=== PATIENT | female | born 1955 | race Caucasian/White ===

== ENCOUNTER 2021-11-06 13:52 | Emergency (ER) | payer BC, OTHER ==
--- NOTE | 2021-11-06 15:53 | ER ---
Nurse's Notes [facility] Name: Yvonne Szymanski Age: 66 yrs Sex: Female : 1955 Arrival Date: 11/06/2021 Time: 13:57 Bed 18 Private MD: Diagnosis: Prolapsed Rectum - Resolved Presentation: 11/06 14:02 Chief complaint: Patient states: "Dr. Kelley said I need emergent surgery for a ab2 prolapsed rectum. He said he called and let everyone here know.". Coronavirus screen: Vaccine status: Patient reports being unvaccinated. Client denies travel out of the [place] in the last 14 days. At this time, the client does not indicate any symptoms associated with coronavirus-19. Ebola Screen: Patient negative for fever greater than or equal to 101.5 degrees Fahrenheit, and additional compatible Ebola Virus Disease symptoms Patient denies exposure to infectious person. Patient denies travel to an Ebola-affected area in the 21 days before illness onset. No symptoms or risks identified at this time. Initial Sepsis Screen: Does the patient meet any 2 criteria? No. Patient's initial sepsis screen is negative. Does the patient have a suspected source of infection? No. Patient's initial sepsis screen is negative. Risk Assessment: Do you want to hurt yourself or someone else? Patient reports no desire to harm self or others. Onset of symptoms is unknown. 14:02 Method Of Arrival: Ambulatory ab2 14:02 Acuity: STEPHAN 3 ab2 Triage Assessment: 14:07 General: Appears in no apparent distress. uncomfortable, Behavior is calm, cooperative, ab2 appropriate for age. Pain: Complains of pain in gluteal cleft. GI: Reports Prolapsed rectum. Historical: - Allergies: 14:06 No Known Allergies; ab2 - PMHx: 14:06 Prolapsed Rectum; ab2 15:32 acid reflux; Hypothyroidism; eo2 - PSHx: 14:06 Hernia Repair; ab2 15:32 R. ACL Repair; R. Ear Canal CA; Cataract and Lasik SX; eo2 - Immunization history:: Adult Immunizations up to date. - Social history:: Smoking status: Patient denies any tobacco usage or history of. Screenin:28 Abuse screen: Denies threats or abuse. Denies injuries from another. Nutritional eo2 screening: No deficits noted. Tuberculosis screening: No symptoms or risk factors identified. Fall Risk None identified. Assessment: 15:28 General: Appears in no apparent distress. comfortable, Behavior is calm, cooperative. eo2 Pain: Complains of pain in buttocks and gluteal cleft. Neuro: Level of Consciousness is awake, alert, obeys commands, Oriented to person, place, time, situation, Denies dizziness, headache. Cardiovascular: Denies chest pain, shortness of breath, Capillary refill < 3 seconds. Respiratory: Airway is patent Trachea midline Respiratory effort is even, unlabored, Respiratory pattern is regular, symmetrical, Breath sounds are clear bilaterally. Denies cough, shortness of breath. GI: Abdomen is non-distended, Bowel sounds present X 4 quads. Patient currently denies abdominal pain. : Reports rectal prolapse and hemorrhoid. Vital Signs: 14:02 BP 112 / 89; Pulse 80; Resp 18; Temp 98.2(TE); Pulse Ox 98% on R/A; Weight 104.33 kg; ab2 Height 5 ft. 9 in. (175.26 cm); Pain 7/10; 15:28 BP 132 / 80; Pulse 65; Resp 17; Pulse Ox 99% ; Pain 5/10; eo2 14:02 Body Mass Index 33.96 (104.33 kg, 175.26 cm) ab2 ED Course: 13:57 Patient arrived in ED. ds1 14:05 Triage completed. ab2 14:07 Arm band placed on left wrist. ab2 14:52 Ladi Iqbal, RN is Primary Nurse. eo2 14:53 Mata Bowers PA is PHCP. [facility] 14:53 Mayelin Piper MD is Attending Physician. [facility] 15:28 Patient has correct armband on for positive identification. Pulse ox on. NIBP on. Door eo2 closed. Noise minimized. 15:28 No provider procedures requiring assistance completed. eo2 Administered Medications: No medications were administered Outcome: 15:52 Discharge ordered by . [facility] 15:58 Discharged to home ambulatory, with family. ic1 15:58 Condition: stable 15:58 Discharge instructions given to patient, Instructed on discharge instructions, follow up and referral plans. Demonstrated understanding of instructions, follow-up care. 16:02 Patient left the ED. ic1 Signatures: Mata Bowers PA PA jmm Sanford, Demi ds1 Ladi Iqbal, RN RN eo2 Sita Mclean RN RN ic1 Bari Lee
--- NOTE | 2021-11-06 15:53 | EDPHYS ---
Physician Documentation [facility] Name: Yvonne Szymanski Age: 66 yrs Sex: Female : 1955 Arrival Date: 11/06/2021 Time: 13:57 Bed 18 Private MD: ED Physician Mayelin Piper HPI: 11/06 15:26 This 66 yrs old Female presents to ER via Ambulatory with complaints of Prolapsed. jmm 15:26 The patient presents to the emergency department with pain in the rectal area. Onset: jmm The symptoms/episode began/occurred 3 week(s) ago. Modifying factors: The symptoms are alleviated by nothing. This is a 66-year-old female with a history of hypothyroidism and GERD the presents emerged department with complaints of rectal pain. Patient states she had a banding procedure performed 3 weeks ago and had rectal discomfort since. Patient was evaluated today by gastroenterology who reduced a prolapsed rectum. Patient states she does not have any current rectal pain but was advised of the need to go to the emergency department to be transferred to colorectal surgery.. Historical: - Allergies: 14:06 No Known Allergies; ab2 - PMHx: 14:06 Prolapsed Rectum; ab2 15:32 acid reflux; Hypothyroidism; eo2 - PSHx: 14:06 Hernia Repair; ab2 15:32 R. ACL Repair; R. Ear Canal CA; Cataract and Lasik SX; eo2 - Immunization history:: Adult Immunizations up to date. - Social history:: Smoking status: Patient denies any tobacco usage or history of. ROS: 15:26 Constitutional: Negative for fever, chills, and weight loss, Cardiovascular: Negative jmm for chest pain, palpitations, and edema, Respiratory: Negative for shortness of breath, cough, wheezing, and pleuritic chest pain. 15:26 Abdomen/GI: Positive for rectal pain. 15:26 All other systems are negative. Exam: 15:26 Constitutional: This is a well developed, well nourished patient who is awake, alert, jmm and in no acute distress. Head/Face: atraumatic. Eyes: EOMI, no conjunctival erythema appreciated ENT: Moist Mucus Membranes Neck: Trachea midline, Supple Chest/axilla: Normal chest wall appearance and motion. Cardiovascular: Regular rate and rhythm. No edema appreciated Respiratory: Normal respirations, no respiratory distress appreciated 15:26 Abdomen/GI: Inspection: obese Bowel sounds: normal, Palpation: abdomen is soft and non-tender, in all quadrants, soft, in all quadrants, Rectal exam: hemorrhoid(s), external, rectal prolapse is not appreciated. 15:26 Musculoskeletal/extremity: ROM: intact in all extremities. 15:26 Skin: Appearance: Color: normal in color. 15:26 Neuro: Motor: is normal. 15:26 Psych: Behavior/mood is pleasant, cooperative. Vital Signs: 14:02 BP 112 / 89; Pulse 80; Resp 18; Temp 98.2(TE); Pulse Ox 98% on R/A; Weight 104.33 kg; ab2 Height 5 ft. 9 in. (175.26 cm); Pain 7/10; 15:28 BP 132 / 80; Pulse 65; Resp 17; Pulse Ox 99% ; Pain 5/10; eo2 14:02 Body Mass Index 33.96 (104.33 kg, 175.26 cm) ab2 MDM: 15:26 Patient medically screened. [facility] 17:22 Data reviewed: vital signs, nurses notes. Counseling: I had a detailed discussion with uma the patient and/or guardian regarding: the historical points, exam findings, and any diagnostic results supporting the discharge/admit diagnosis, the need for outpatient follow up, to return to the emergency department if symptoms worsen or persist or if there are any questions or concerns that arise at home. ED course: I discussed I discussed the patient with Dr. Kelley whom wanted to have the patient transferred to the [facility] due to the prolapse. I discussed this with the patient whom had a preference to follow-up. I contacted Dr. Jeffery Hernandez whom will follow up with the patient. Patient was given strict return precautions. patient understood and agrees with the plan of care. . Administered Medications: No medications were administered Disposition Summary: 11/06/21 15:52 Discharge Ordered Location: Home [facility] Condition: Stable yair Diagnosis - Prolapsed Rectum - Resolved yair Followup: uma - With: Private Physician - When: 2 - 3 days - Reason: Recheck today's complaints, Continuance of care, Re-evaluation by your physician Discharge Instructions: - Discharge Summary Sheet uma - Rectal Prolapse, Adult yair Forms: - Medication Reconciliation Form yair - Thank You Letter jmm - Antibiotic Education jmm - Prescription Opioid Use jm Signatures: Mata Bowers PA PA jmm Owoade, Eunice, RN RN eo2 Bari Lee
[2021-11-06 16:50] VITALS: TEMP 98.2
[2021-11-06 16:51] VITALS: BP 132/80; O2SAT 99
== END 2021-11-06 16:02 | disposition home or self-care (01) ==
LOC: ER 13:52
DX: K62.89 Other specified diseases of anus and rectum (principal)
CPT/HCPCS: 99283

== ENCOUNTER 2022-08-04 23:56 | Emergency (ER) | payer OTHER ==
--- OUTSIDE RECORDS SUMMARY | 2022-08-04 23:58 | XMS REPORT | Clinical Summary ---
:1955 Author Organization [facility] MD [facility] Address [address] [place] [address] Care Team Providers Name Role Phone Hemal Berg MD Primary Care Provider Kadi Esposito MD Unavailable Liborio Pereira Unavailable Lorenzo Acosta MD Unavailable Ignacio Salvador MA, James H Unavailable Tom Melendez MD Unavailable Hemal Berg MD Unavailable Dominick Akbar Unavailable Zhang Chavez MD Unavailable Allergies Active Allergy Reactions Severity Noted Date Comments Adhesive Rash Low 10/09/2016 Other Dermatitis High 12/24/2018 Allergic to all metals Medications Medication Sig Dispensed Refills Start Date End Date Status levothyroxine Take 1 tablet by 0 Active (SYNTHROID, mouth daily. LEVOTHROID) 75 mcg tablet omeprazole Take 10 mg by mouth 0 Active (PriLOSEC) 10 MG as needed. Reported capsule on 10/09/2016 ranitidine (ZANTAC) Take 150 mg by mouth 0 Active 150 mg tablet as needed. Reported on 10/09/2016 NAPROXEN SODIUM Take 2 tablets by 0 Active (ALEVE ORAL) mouth as needed. topiramate (QUDEXY Take 150 mg by mouth 0 Active XR) 100 mg CSpX every evening. CYANOCOBALAMIN, Inject 1 application 0 Active VITAMIN B-12, (B-12 as directed every 30 KIT INJECTION) (thirty) days. SALIVAMAX 351 mg RINSE 8-10 TIMES 11 01/30/2018 Active pwpk DAILY. RECONSTITUTE EACH PACKET WITH WATER. TURMERIC, BULK, MISC 1 capsule by 0 Active miscellaneous route every evening. solifenacin Take by mouth. 0 Act jenise (VESICARE) 5 MG tablet magnesium oxide 500 Take 500 mg by mouth 0 Active mg tablet every evening. UNABLE TO FIND 2 tablets twice 0 Active daily. Med Name: Rex's Leg Cramps Homeopathic Tabs tolterodine (DETROL Take by mouth every 0 Active LA) 4 mg 24 hr evening. capsule magnesium chloride Take 2 tablets by 0 Active (SLOW-MAG mouth daily. 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 Her radiation therapy span adma from 04/11/2015 to 05/20/2015, recei ving 60 Gy over 30 fractions. She underwent lateral temporal bone rese ction with facial nerve decompression, superficial parotidectomy, upper neck dissection, and temporalis rotational flap reconstruction. Her radiation therapy span adam from 04/11/2015 to 05/20/2015, recei ving 60 Gy over 30 fractions. 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 History of laparoscopic adjustable gastric banding Neuralgia 06/17/2015 Surgical History Surgery Date Site/Laterality Comments RESECTION TEMPORAL BONE 02/28/2015 Right TONSILLECTOMY 09/02/1971 - 09/01/1972 HYSTERECTOMY 09/02/1994 - with Bladder sli ng 09/01/1995 GASTRIC BYPASS 08/02/1999 - 09/01/1999 SHOULDER SURGERY 09/02/2008 - Right Rotator cuff re pair 09/01/2009 COLONOSCOPY 09/02/2015 - 09/01/2016 CHOLECYSTECTOMY 09/02/1992 - 09/01/1993 UPPER GASTROINTESTINAL 09/02/2002 - ENDOSCOPY 09/01/2003 VENTRAL HERNIA REPAIR 1994; 2002 with Mesh STOMACH SURGERY 09/02/1998 - Vertical Gastric 09/01/1999 Banding PANNICULECTOMY 09/02/2002 - 09/01/2003 NE RPR 1ST INGUN HRNA AGE 4 10/29/2016 Abdomen/Right Proc edure: REPAIR OF YRS/> REDUCIBLE REDUCIBLE INGUIN AL HERNIA- RIGHT; Surgeon: James luque MD; Location: [facility] IN OR; Service: SURG ON C - GENERAL Medical devices from this surgery are in the Medical [facility] section. Medical History Medical History Date Comments Hypothyroidism Migraine Personal history of meningitis 1975 Hearing loss 2014 Functional visual loss 1965 Polyp 1990 Gallstone 1996 Urinary tract infection 2011 Urinary incontinence 2004 Do to bladder falle n, repaired and fallen again Menopause 2002 do to hysterectomy Fracture broken wrist/broken toe Complication of internal prosthetic 2015 in w rist device Presence of other specified device 2004 repai r of henia Disorder of thyroid gland 2015 Malignant tumor of head and neck 2015 ear can cer Squamous cell carcinoma Of right ear can al Gastro-esophageal reflux disease 1994 without esophagitis Inguinal hernia Obesity Endometriosis Hypertension 02/06/2017 Family History Medical History Relation Name Comments Heart disease Brother 1 Liver disease Brother 2 Breast cancer Cousin 1 Dori Breast cancer Cousin 2 Eliane -Unknown cancer Cousin 3 beatriz Heart disease Father Diabetes Mother Hypertension Mother -Melanoma Paternal Uncle Liver disease Sister Relation Name Status Comments Brother 1 Brother 2 Cousin 1 Dori Cousin 2 Eliane Alive Cousin 3 beatriz Alive Father Mother Paternal Uncle Sister Social History Tobacco Use Types Packs/Day Years Used Date Smoking Tobacco: Former Cigarettes 1.5 15 1965 - 1980 Smokeless Tobacco: Never Alcohol Use Standard Drinks/Week Comments No 0 (1 standard drink = 0.6 oz pure alcoho l) 3 drinks/month Sex Assigned at Date Recorded Not on file Obstetrics History Para Term AB IAB SAB Ectopic Multiple Living Live Births 4 4 Date Outcome GA Total Labor/2nd/3rd Weight Sex Delivery Anes PTL Della A 1 A5 Name Clin Labor Para Para Para Para Comments Menarche at age 8 Parity at age 18 Control Pills: 11 years Hormones: 2 years Last Filed Vital Signs Not on file Plan of Treatment Health Maintenance Due Date Last Done Comments COVID-19 Vaccination (#1) 02/18/1956 Medical Devices Implanted Type Area Small Battery Plate Assembler Device Shelf Model / Serial / Identifier Expiration Lot Date Mesh Marlex 2" X 12" - [id number] Implant Right: [employer] 04/29/2020 [id number] / Implanted: Qty: 1 on 10/29/2016 by James Fernandez MD [facility] Inguinal [id number] / [id number] Results Not on fileafter 08/04/2021 Insurance Payer Benefit Plan Subscriber ID Effective Phone Address Typ e / Group Dates MEDICARE MEDICARE PART [id number] 2019-Pres [phone] [facility] Medicare A AND B ent [address] [place] [address] [place] P[place] [id number] 2020-Prese [address] [place] [address] [place] [address] [phone] (Work) Yvonne Szymanski Marci Personal/Family Self 1955 [address] (Home) [place] [address] EliaswiliYvonne Marci Personal/Family Self 1955 [address] (Home) [place], [place] [phone] (Work) Advance Directives Code Status Date Activated Date Inactivated Comments Full Code 10/29/2016 9:36 AM 10/29/2016 3:34 PM Care Teams Consulting It Architect Relationship Specialty Start Date End Date Hemal Berg MD PCP - General 11/02/[address] [place] [id number] Kadi Esposito MD PCP - External Referring 01/06/[address] [place] [phone] Liborio Pereira AuD Public Relations Consultant 11/09/[address] [place], [place] [address] [place] [address] Lorenzo Acosta MD Physician 11/09/[address] [place] [address]. [address] [place] [address] Lexa Pierre Jr., MA Public Relations Consultant 11/09/[address] [place] [address] [place] [address] [place] [address] Tom Melendez MD Physician 11/09/[address] [place] [id number] Hemal Berg MD Physician 11/09/[address] [place] [address] Dominick Akbar PA Physician Breeder Service Technician 11/09/[address] [place] [address] Zhang Chavez MD Physician 11/09/[address] [place] [address]
--- OUTSIDE RECORDS SUMMARY | 2022-08-05 00:04 | XMS REPORT | Continuity of Care Document ---
:1955 Author Organization [facility] [place] t Address [address] [place] [address] Care Team Providers Name Role Phone FRANCISCO JAVIER REYES Primary Care Physician Unavailable LUPE PEÑALOZA Attending Clinician Unavailable Chloé Pena MA Attending Clinician Unavailable LUPE PEÑALOZA Attending Clinician Unavailable Doctor Unassigned, [place] Attending Clinician Unavailable Ambar Weathers MD Attending Clinician Eneida Barrios Attending Clinician ENEIDA GONZALEZ Attending Clinician Unavailable Provider, [facility] Attending Clinician Unavailable Rohan Wolf DO Attending Clinician Angie Romo Attending Clinician Lab, [facility] Attending Clinician Unavailable VESELKA, AMBAR EDWARD Attending Clinician Unavailable P[facility], Acute [facility] Attending Clinician Unavailable Payers Payer Name Policy Type Policy Number Effective Date Expiration Date [employer] PPO [id number] 2021 00:00:00 Problems Condition Condition Condition Status Onset Resolution Last Treating Co mments Source Name Details Category Date Date Treatment Clinician Date Vaginal Vaginal Disease Active Methodi vault vault 02-27 prolapse prolapse 00:00: Hospit a after after 00 l hysterecto hysterecto my my Headache Headache Disease Active Unive rs 02-08 ity of 00:00: [facility] Meningitis Meningitis Disease Active U nivers 02-06 ity of 00:00: MD [facility] Arthritis Arthritis Disease Active Met hodi 02-06 00:00: Hospita 00 l Hypertensi Hypertensi Disease Active M ethodi on on 02-06 00:00: Hospita 00 l Personal Personal Disease Active Unive rs history of history of 12-22 it [place] of [place] [facility] 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 [place], [place] Medical right right Branch 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 [place], 00 Medical right right Branch Inguinal Inguinal Disease Active 2015-09 [place] rs hernia hernia 1-14 ity of 00:00: 00 MD [facility] Abdominal Abdominal Disease Active 2015-09 Uni vers pain pain 1-14 ity of 00:00: 00 MD [facility] Mass of Mass of Disease Active 2015-09 Univers pancreas pancreas 1-12 ity of 00:00: MD [facility] Obesity Obesity Disease Active 2015-09 Methodi (BMI (BMI 09-13 st 30-39.9) 30-39.9) 00:00: Hospit a 00 l Occipital Occipital Disease Active 2015-09 Uni vers neuralgia neuralgia 1-10 ity of 00:00: 00 MD [facility] History of History of Disease Active 2015-09 U nivers bypass of bypass of 1-10 ity of stomach stomach 00:00: [place] 00 MD [facility] Conductive Conductive Disease Active 2015-09 M ethodi hearing hearing 1-09 st loss of loss of 00:00: Hospita right ear right ear 00 l Conductive Conductive Disease Active 2015-09 M ethodi hearing hearing 1-09 st loss of loss of 00:00: Hospita right ear right ear 00 l Cancer of Cancer of Disease Active Uni vers skin of skin of 9-27 ity of ear and ear and 00:00: [place] external external 00 Medica l auditory auditory Branch canal, canal, right right Squamous Squamous Disease Active Overview: Un jamie cell cell 4-01 Formattin ity of carcinoma carcinoma 00:00: [place] of this [place] of skin of of skin of 00 note ear ear might be Anderso different n from the Cancer original. Center She underwent lateral temporal bone resection with facial nerve decompres dorita, superfici al parotidec emily, upper neck dissectio n, and temporali s rotationa l flap reconstru ction. Her radiation therapy spanned from 5 to 5, receiving 60 Gy over 30 fractions .She underwent lateral temporal bone resection with facial nerve decompres dorita, superfici al parotidec emily, upper neck dissectio n, and temporali s rotationa l flap reconstru ction. Her radiation therapy spanned from 5 to 5, receiving 60 Gy over 30 fractions . Squamous Squamous Disease Active Overview: Me thodi cell cell 4-[address] carcinoma carcinoma 00:00: g of this H ospita of ear, of ear, 00 note l right right might be different from the original. Overview: She underwent lateral temporal bone resection with facial nerve decompres dorita, superfici al parotidec emily, upper neck dissectio n, and temporali s rotationa l flap reconstru ction. Her radiation therapy spanned from 5 to 5, receiving 60 Gy over 30 fractions . History of History of Disease Active 2014-09 U nivers laparoscop laparoscop 0-29 it y of ic ic 00:00: [place] adjustable adjustable 00 gastric gastric Anderso banding [facility] Gastroesop Gastroesop Disease Active 2014-09 M ethodi hageal hageal 0-29 st reflux reflux 00:00: Hospita disease disease 00 l without without esophagiti esophagiti s s Hypothyroi Hypothyroi Disease Active 2014-09 M ethodi dism dism 0- st 00:00: Hospita 00 l Neuralgia Neuralgia Disease Active 2014-09 Met hodi of of 0 st cranial cranial 00:00: Hospita nerve nerve 00 l Neuralgia Neuralgia Disease Active 2014-09 Uni vers 0-16 ity of 00:00: [place] 00 MD [facility] No known No known Disease [place] active active Health problems problems Allergies, Adverse Reactions, Alerts Allergy Allergy Status Severity Reaction(s) Onset Inactive Treating Comm ents Source Name Type Date Date Clinician Other Propensi Active Allergic Method i ty to [address] adverse 00:00: metals Hospita reaction 00 l s Adhesive Propensi Active Rash Univer s ty to 207 ity of adverse 00:00: [place] reaction 00 [facility] ADHESIVE Drug Active Low Rash Univers Class 2-07 ity of 00:00: [place] 00 [facility] Branch Adhesive Propensi Active Rash Method i ty to 07 st adverse 00:00: Hospita reaction 00 l s to drug Adhesive Propensi Active Rash Univer s ty to 2-07 ity of adverse 00:00: [place] reaction 00 [facility] Adhesive Propensi Active Rash Method i ty to 10-09 st adverse 00:00: Hospita reaction 00 l s to drug NO KNOWN Drug Active Univers ALLERGIE Class ity of [facility] Family History Family Member Diagnosis Comments Start Date Stop Date Source Natural brother [facility] [place] Natural brother Liver disease [facility] MD David Delacruz r [place] Cousin Breast cancer [facility] MD David Delacruz r [place] Cousin -Unknown cancer [facility] [place] [facility] Del[facility] r [place] Natural father Heart disease Univers ity [facility] MD [facility] [place] Natural mother Diabetes [facility] MD [facility] [place] Natural mother Hypertension [facility] [place] MD David Delacruz r [place] Paternal uncle -Melanoma [facility] MD [facility] [place] Natural sister Liver disease Univers ity [facility] MD [facility] Social History Social Habit Start Date Stop Date Quantity Comments Source History of tobacco Current smoker [facility] use History SDOH [facility] History SDOH [facility] Std Drinks Hospit al Exposure to 2022-06-12 2022-06-22 Not sure [facility] SARS-CoV-2 (event) 00:00:00 10:15:00 Tobacco use and 2021-11-07 2021-11-07 Smokeless [facility] exposure 00:00:00 00:00:00 tobacco non-user Alcohol intake 2019-02-27 2019-02-27 Current [facility] 00:00:00 00:00:00 non-drinker of Hospital alcohol (finding) History SDOH 2019-02-27 2019-02-27 1 [facility] Frequency 00:00:00 00:00:00 Hospita l Alcohol Comment 2016-10-09 2016-10-09 3 drinks/month Unive rsity of 00:00:00 00:00:00 [place] MD Dany field [facility] [place] Cigarettes smoked 2016-10-09 2016-10-09 [facility] ity of current (pack per 00:00:00 00:00:00 [place] Alyson Posey David ) - Reported Cancer Ce nter Cigarette 2016-10-09 2016-10-09 University of pack-years 00:00:00 00:00:00 [place] MD Dany field [facility] Sex Ass[birth year] At [birth year] [facility] 00:00:00 00:00:00 Hospital Smoking Status Start Date Stop Date Source Ex-smoker 2021-11-07 00:00:00 2021-11-07 00:00:00 [facility] Medications Ordered Filled Start Stop Current Ordering Indication Dosage Frequency Signature Comments Components Source Medication Medication Date Date Medication? Clinician (SIG) Name Name Na Yes [id number] Use as [place] Sulfate-K 4-04 directed Health Sulfate-Mg 00:00: given to Sulf 00 patient at (Suprep the office Bowel Prep Kit) 17.5-3.13-1 .6 GM/177ML solution Na Yes [id number] Use as [facility] Sulfate-K 4-04 directed Health Sulfate-Mg 00:00: given to Sulf 00 patient at (Suprep the office Bowel Prep Kit) 17.5-3.13-1 .6 GM/177ML solution Na Yes [id number] Use as [facility] Sulfate-K 4-04 directed Health Sulfate-Mg 00:00: given to Sulf 00 patient at (Suprep the office Bowel Prep Kit) 17.5-3.13-1 .6 GM/177ML solution Na Yes [id number] Use as [facility] Sulfate-K 4-04 directed Health Sulfate-Mg 00:00: given to Sulf 00 patient at (Suprep the office Bowel Prep Kit) 17.5-3.13-1 .6 GM/177ML solution Na Yes [id number] Use as [facility] Sulfate-K 4-04 directed Health Sulfate-Mg 00:00: given to Sulf 00 patient at (Suprep the office Bowel Prep Kit) 17.5-3.13-1 .6 GM/177ML solution Na Yes [id number] Use as [facility] Sulfate-K 4-04 directed Health Sulfate-Mg 00:00: given to Sulf 00 patient at (Suprep the office Bowel Prep Kit) 17.5-3.13-1 .6 GM/177ML solution aspirin-jose 0 Yes 1{tbl} Q6H Take 1 UT taminophen- 3-08 tablet by [facility] caffeine 10:17: mouth (Excedrin 38 every 6 Migraine) (six) 250-250-65 hours if MG tablet needed for headaches. Boswellia-G 0 Yes Take by UT lucosamine- 3-08 mouth. Health Vit D 10:17: (OSTEO 38 BI-FLEX ONE PER DAY PO) CRANBERRY 0 Yes Take by UT FRUIT PO 3-08 mouth. Health 10:17: 38 FAMOTIDINE 0 Yes Take by UT PO 3-08 mouth. Health 10:17: 38 aspirin-jose 2021-0 Yes 1{tbl} Q6H Take 1 UT taminophen- 3-08 tablet by [facility] caffeine 10:17: mouth (Excedrin 38 every 6 Migraine) (six) 250-250-65 hours if MG tablet needed for headaches. Boswellia-G 0 Yes Take by UT lucosamine- 3-08 mouth. Health Vit D 10:17: (OSTEO 38 BI-FLEX ONE PER DAY PO) CRANBERRY 0 Yes Take by UT FRUIT PO 3-08 mouth. Health 10:17: 38 FAMOTIDINE 2-0 Yes Take by UT PO 3-08 mouth. Health 10:17: 38 aspirin-jose 2-0 Yes 1{tbl} Q6H Take 1 UT taminophen- 3-08 tablet by [facility] caffeine 10:17: mouth (Excedrin 38 every 6 Migraine) (six) 250-250-65 hours if MG tablet needed for headaches. Boswellia-G 2021-0 Yes Take by UT lucosamine- 3-08 mouth. Health Vit D 10:17: (OSTEO 38 BI-FLEX ONE PER DAY PO) CRANBERRY 2021-0 Yes Take by UT FRUIT PO 3-08 mouth. Health 10:17: 38 FAMOTIDINE 2-0 Yes Take by UT PO 3-08 mouth. Health 10:17: 38 aspirin-jose 2-0 Yes 1{tbl} Q6H Take 1 UT taminophen- 3-08 tablet by [facility] caffeine 10:17: mouth (Excedrin 38 every 6 Migraine) (six) 250-250-65 hours if MG tablet needed for headaches. Boswellia-G 2021-0 Yes Take by UT lucosamine- 3-08 mouth. Health Vit D 10:17: (OSTEO 38 BI-FLEX ONE PER DAY PO) CRANBERRY 2021-0 Yes Take by UT FRUIT PO 3-08 mouth. Health 10:17: 38 FAMOTIDINE 2-0 Yes Take by UT PO 3-08 mouth. Health 10:17: 38 aspirin-jose 2-0 Yes 1{tbl} Q6H Take 1 UT taminophen- 3-08 tablet by [facility] caffeine 10:17: mouth (Excedrin 38 every 6 Migraine) (six) 250-250-65 hours if MG tablet needed for headaches. Boswellia-G 2-0 Yes Take by UT lucosamine- 3-08 mouth. Health Vit D 10:17: (OSTEO 38 BI-FLEX ONE PER DAY PO) CRANBERRY 2-0 Yes Take by UT FRUIT PO 3-08 mouth. Health 10:17: 38 FAMOTIDINE 2022-0 Yes Take by UT PO 3-08 mouth. Health 10:17: 38 aspirin-jose 2022-0 Yes 1{tbl} Q6H Take 1 UT taminophen- 3-08 tablet by [facility] caffeine 10:17: mouth (Excedrin 38 every 6 Migraine) (six) 250-250-65 hours if MG tablet needed for headaches. Boswellia-G 2021-0 Yes Take by UT lucosamine- 3-08 mouth. Health Vit D 10:17: (OSTEO 38 BI-FLEX ONE PER DAY PO) CRANBERRY 2-0 Yes Take by UT FRUIT PO 3-08 mouth. Health 10:17: 38 FAMOTIDINE 2-0 Yes Take by UT PO 3-08 mouth. Health 10:17: 38 aspirin-jose 2022-0 Yes 1{tbl} Q6H Take 1 UT taminophen- 3-08 tablet by [facility] caffeine 10:17: mouth (Excedrin 38 every 6 Migraine) (six) 250-250-65 hours if MG tablet needed for headaches. Boswellia-G 2021-0 Yes Take by UT lucosamine- 3-08 mouth. Health Vit D 10:17: (OSTEO 38 BI-FLEX ONE PER DAY PO) CRANBERRY 2-0 Yes Take by UT FRUIT PO 3-08 mouth. Health 10:17: 38 FAMOTIDINE 2-0 Yes Take by UT PO 3-08 mouth. Health 10:17: 38 aspirin-jose 2022-0 Yes 1{tbl} Q6H Take 1 UT taminophen- 3-08 tablet by [facility] caffeine 10:17: mouth (Excedrin 38 every 6 Migraine) (six) 250-250-65 hours if MG tablet needed for headaches. Boswellia-G 2021-0 Yes Take by UT lucosamine- 3-08 mouth. Health Vit D 10:17: (OSTEO 38 BI-FLEX ONE PER DAY PO) CRANBERRY 2-0 Yes Take by UT FRUIT PO 3-08 mouth. Health 10:17: 38 FAMOTIDINE 2022-0 Yes Take by UT PO 3-08 mouth. Health 10:17: 38 aspirin-jose 2022-0 Yes 1{tbl} Q6H Take 1 UT taminophen- 3-08 tablet by [facility] caffeine 10:17: mouth (Excedrin 38 every 6 Migraine) (six) 250-250-65 hours if MG tablet needed for headaches. Boswellia-G 2022-0 Yes Take by UT lucosamine- 3-08 mouth. Health Vit D 10:17: (OSTEO 38 BI-FLEX ONE PER DAY PO) CRANBERRY 2-0 Yes Take by UT FRUIT PO 3-08 mouth. Health 10:17: 38 FAMOTIDINE 2-0 Yes Take by UT PO 3-08 mouth. Health 10:17: 38 Magnesium 2022-0 Yes 500mg Take 500 UT Oxide 500 3-08 mg by Health MG tablet 10:16: mouth. 24 Magnesium 2022-0 Yes 500mg Take 500 UT Oxide 500 3-08 mg by Health MG tablet 10:16: mouth. 24 Magnesium 2022-0 Yes 500mg Take 500 UT Oxide 500 3-08 mg by Health MG tablet 10:16: mouth. 24 Magnesium 2022-0 Yes 500mg Take 500 UT Oxide 500 3-08 mg by Health MG tablet 10:16: mouth. 24 Magnesium 2022-0 Yes 500mg Take 500 UT Oxide 500 3-08 mg by Health MG tablet 10:16: mouth. 24 Magnesium 2022-0 Yes 500mg Take 500 UT Oxide 500 3-08 mg by Health MG tablet 10:16: mouth. 24 Magnesium 2022-0 Yes 500mg Take 500 UT Oxide 500 3-08 mg by Health MG tablet 10:16: mouth. 24 Magnesium 2022-0 Yes 500mg Take 500 UT Oxide 500 3-08 mg by Health MG tablet 10:16: mouth. 24 Magnesium 2022-0 Yes 500mg Take 500 UT Oxide 500 3-08 mg by Health MG tablet 10:16: mouth. 24 levothyroxi 2-0 Yes UT ne 2-22 Health (Synthroid, 00:00: Levoxyl) 75 00 MCG tablet levothyroxi 2021-0 Yes UT ne 2-22 Health (Synthroid, 00:00: Levoxyl) 75 00 MCG tablet levothyroxi 2021-0 Yes UT ne 2-22 Health (Synthroid, 00:00: Levoxyl) 75 00 MCG tablet levothyroxi 2021-0 Yes UT ne 2-22 Health (Synthroid, 00:00: Levoxyl) 75 00 MCG tablet levothyroxi 2021-0 Yes UT ne 2-22 Health (Synthroid, 00:00: Levoxyl) 75 00 MCG tablet levothyroxi 2021-0 Yes UT ne 2-22 Health (Synthroid, 00:00: Levoxyl) 75 00 MCG tablet levothyroxi 0 Yes UT ne 2-22 Health (Synthroid, 00:00: Levoxyl) 75 00 MCG tablet levothyroxi 0 Yes UT ne 2-22 Health (Synthroid, 00:00: Levoxyl) 75 00 MCG tablet levothyroxi 0 Yes UT ne 2-22 Health (Synthroid, 00:00: Levoxyl) 75 00 MCG tablet LEVOTHYROXI 0 Yes [id number] TAKE ONE Univers NE 75 mcg 2-21 TABLET BY ity o f tablet 00:00: MOUTH [place] 00 EVERY Medical MORNING Branch LEVOTHYROXI 0 Yes [id number] TAKE ONE Univers NE 75 mcg 2-21 TABLET BY ity o f tablet 00:00: MOUTH [place] 00 EVERY Medical MORNING Branch LEVOTHYROXI 0 Yes [id number] TAKE ONE Univers NE 75 mcg 1-18 TABLET BY ity o f tablet 00:00: MOUTH [place] 00 EVERY Medical MORNING Branch LEVOTHYROXI 2021-0 2021- No [id number] TAKE ONE Univers NE 75 mcg 1-18 02-21 TABLET BY ity of tablet 00:00: 00:00 MOUTH [place] 00 :00 EVERY Medical MORNING Branch LEVOTHYROXI 2020-1 Yes [id number] TAKE ONE Univers NE 75 mcg 0-18 TABLET BY ity o f tablet 00:00: MOUTH [place] 00 EVERY Medical MORNING Branch LEVOTHYROXI 2020-09- No [id number] TAKE ONE Univers NE 75 mcg 0-18 01-18 TABLET BY ity of tablet 00:00: 00:00 MOUTH [place] 00 :00 EVERY Medical MORNING Branch LEVOTHYROXI 2020-0 Yes [id number] TAKE ONE Univers NE 75 mcg 7-19 TABLET BY ity o f tablet 00:00: MOUTH [place] 00 EVERY Medical MORNING Branch LEVOTHYROXI 2020-0 2020- No [id number] TAKE ONE Univers NE 75 mcg 7-19 10-18 TABLET BY ity of tablet 00:00: 00:00 MOUTH [place] 00 :00 EVERY Medical MORNING Branch dicyclomine 2020-0 1- No [id number] 20mg Take 1 Univers 20 mg 12-06 05-07 tablet by ity of tablet 00:00: 04:59 mouth 4 [place] 00 :00 (four) Medical times Branch daily for 30 days. Start bid first week, then tid second, then QID dicyclomine 2020- No [id number] 20mg Take 1 Univers 20 mg 4- 05-07 tablet by ity of tablet 00:00: 04:59 mouth 4 [place] 00 :00 (four) Medical times Branch daily for 30 days. Start bid first week, then tid second, then QID dicyclomine 2020- No [id number] 20mg Take 1 Univers 20 mg 4- 05-07 tablet by ity of tablet 00:00: 04:59 mouth 4 [place] 00 :00 (four) Medical times Branch daily for 30 days. Start bid first week, then tid second, then QID dicyclomine 2020- No [id number] 20mg Take 1 Univers 20 mg 4- 05-07 tablet by ity of tablet 00:00: 04:59 mouth 4 [place] 00 :00 (four) Medical times Branch daily for 30 days. Start bid first week, then tid second, then QID ondansetron Yes [id number] 8mg Take 1 Univers (ZOFRAN 3-15 tablet by ity of ODT) 8 mg 00:00: mouth [place] disintegrat 00 every 8 Medic al ing tablet (eight) Branch hours as needed for Nausea and Vomiting (N/V). ondansetron Yes [id number] 8mg Take 1 Univers (ZOFRAN 3-15 tablet by ity of ODT) 8 mg 00:00: mouth [place] disintegrat 00 every 8 Medic al ing tablet (eight) Branch hours as needed for Nausea and Vomiting (N/V). ondansetron Yes [id number] 8mg Take 1 Univers (ZOFRAN 3-15 tablet by ity of ODT) 8 mg 00:00: mouth [place] disintegrat 00 every 8 Medic al ing tablet (eight) Branch hours as needed for Nausea and Vomiting (N/V). ondansetron Yes [id number] 8mg Take 1 Univers (ZOFRAN 3-15 tablet by ity of ODT) 8 mg 00:00: mouth [place] disintegrat 00 every 8 Medic al ing tablet (eight) Branch hours as needed for Nausea and Vomiting (N/V). ondansetron 2020-0 Yes [id number] 8mg Take 1 Univers (ZOFRAN 3-15 tablet by ity of ODT) 8 mg 00:00: mouth [place] disintegrat 00 every 8 Medic al ing tablet (eight) Branch hours as needed for Nausea and Vomiting (N/V). ondansetron 2020-0 Yes [id number] 8mg Take 1 Univers (ZOFRAN 3-15 tablet by ity of ODT) 8 mg 00:00: mouth [place] disintegrat 00 every 8 Medic al ing tablet (eight) Branch hours as needed for Nausea and Vomiting (N/V). ondansetron 2020-0 Yes [id number] 8mg Take 1 Univers (ZOFRAN 3-15 tablet by ity of ODT) 8 mg 00:00: mouth [place] disintegrat 00 every 8 Medic al ing tablet (eight) Branch hours as needed for Nausea and Vomiting (N/V). ondansetron 2020-0 Yes [id number] 8mg Take 1 Univers (ZOFRAN 3-15 tablet by ity of ODT) 8 mg 00:00: mouth [place] disintegrat 00 every 8 Medic al ing tablet (eight) Branch hours as needed for Nausea and Vomiting (N/V). ondansetron 0 Yes [id number] 8mg Take 1 Univers (ZOFRAN 3-15 tablet by ity of ODT) 8 mg 00:00: mouth [place] disintegrat 00 every 8 Medic al ing tablet (eight) Branch hours as needed for Nausea and Vomiting (N/V). ondansetron 0 Yes [id number] 8mg Take 1 Univers (ZOFRAN 3-15 tablet by ity of ODT) 8 mg 00:00: mouth [place] disintegrat 00 every 8 Medic al ing tablet (eight) Branch hours as needed for Nausea and Vomiting (N/V). ondansetron 2020-0 Yes [id number] 8mg Take 1 Univers (ZOFRAN 3-15 tablet by ity of ODT) 8 mg 00:00: mouth [place] disintegrat 00 every 8 Medic al ing tablet (eight) Branch hours as needed for Nausea and Vomiting (N/V). LEVOTHYROXI 0 Yes [id number] TAKE ONE Univers NE 75 mcg 1-19 TABLET BY ity o f tablet 00:00: MOUTH [place] 00 EVERY Medical MORNING Branch LEVOTHYROXI 2021-0 Yes [id number] TAKE ONE Univers NE 75 mcg 1-19 TABLET BY ity o f tablet 00:00: MOUTH [place] 00 EVERY Medical MORNING Branch LEVOTHYROXI 2021-0 Yes [id number] TAKE ONE Univers NE 75 mcg 1-19 TABLET BY ity o f tablet 00:00: MOUTH [place] 00 EVERY Medical MORNING Branch LEVOTHYROXI 2021-0 Yes [id number] TAKE ONE Univers NE 75 mcg 1-19 TABLET BY ity o f tablet 00:00: MOUTH [place] 00 EVERY Medical MORNING Branch LEVOTHYROXI 2021-0 Yes [id number] TAKE ONE Univers NE 75 mcg 1-19 TABLET BY ity o f tablet 00:00: MOUTH [place] 00 EVERY Medical MORNING Branch LEVOTHYROXI 2021-0 Yes [id number] TAKE ONE Univers NE 75 mcg 1-19 TABLET BY ity o f tablet 00:00: MOUTH [place] 00 EVERY Medical MORNING Branch LEVOTHYROXI 2021-0 Yes [id number] TAKE ONE Univers NE 75 mcg 1-19 TABLET BY ity o f tablet 00:00: MOUTH [place] 00 EVERY Medical MORNING Branch LEVOTHYROXI 2021-0 Yes [id number] TAKE ONE Univers NE 75 mcg 1-19 TABLET BY ity o f tablet 00:00: MOUTH [place] 00 EVERY Medical MORNING Branch LEVOTHYROXI 2021-0 Yes [id number] TAKE ONE Univers NE 75 mcg 1-19 TABLET BY ity o f tablet 00:00: MOUTH [place] 00 EVERY Medical MORNING Branch LEVOTHYROXI 2021-0 2021- No [id number] TAKE ONE Univers NE 75 mcg 1-19 07-19 TABLET BY ity of tablet 00:00: 00:00 MOUTH [place] 00 :00 EVERY Medical MORNING Branch LEVOTHYROXI 2020-1 Yes [id number] TAKE ONE Univers NE 75 mcg 2-23 TABLET BY ity o f tablet 00:00: MOUTH [place] 00 EVERY Medical MORNING Branch LEVOTHYROXI 2020-1 2021- No [id number] TAKE ONE Univers NE 75 mcg 2-23 01-19 TABLET BY ity of tablet 00:00: 00:00 MOUTH [place] 00 :00 EVERY Medical MORNING Branch LEVOTHYROXI 2020-1 Yes [id number] TAKE ONE Univers NE 75 mcg 1-27 TABLET BY ity o f tablet 00:00: MOUTH [place] 00 EVERY Medical MORNING Branch LEVOTHYROXI 2020-1 2020- No [id number] TAKE ONE Univers NE 75 mcg 1-27 12-23 TABLET BY ity of tablet 00:00: 00:00 MOUTH [place] 00 :00 EVERY Medical MORNING Branch LEVOTHYROXI 2020-1 Yes [id number] TAKE ONE Univers NE 75 mcg 0-27 TABLET BY ity o f tablet 00:00: MOUTH [place] 00 EVERY Medical MORNING Branch LEVOTHYROXI 2020-1 2020- No [id number] TAKE ONE Univers NE 75 mcg 0-27 11-27 TABLET BY ity of tablet 00:00: 00:00 MOUTH [place] 00 :00 EVERY Medical MORNING Branch LEVOTHYROXI 2020-0 Yes [id number] TAKE ONE Univers NE 75 mcg 9-30 TABLET BY ity o f tablet 00:00: MOUTH [place] 00 EVERY Medical MORNING Branch LEVOTHYROXI 2020-0 2020- No [id number] TAKE ONE Univers NE 75 mcg 9-30 10-27 TABLET BY ity of tablet 00:00: 00:00 MOUTH [place] 00 :00 EVERY Medical MORNING Branch cyanocobala 2020-0 Yes INJECT 1 UT min 9-28 ML Health (Vitamin 00:00: INTRAMUSCU B-12) 1000 00 LARLY ONCE MCG/ML EVERY injection MONTH cyanocobala 2020-0 Yes INJECT 1 UT min 9-28 ML Health (Vitamin 00:00: INTRAMUSCU B-12) 1000 00 LARLY ONCE MCG/ML EVERY injection MONTH cyanocobala 2020-0 Yes INJECT 1 UT min 9-28 ML Health (Vitamin 00:00: INTRAMUSCU B-12) 1000 00 LARLY ONCE MCG/ML EVERY injection MONTH cyanocobala 2020-0 Yes INJECT 1 UT min 9-28 ML Health (Vitamin 00:00: INTRAMUSCU B-12) 1000 00 LARLY ONCE MCG/ML EVERY injection MONTH cyanocobala 2020-0 Yes INJECT 1 UT min 9-28 ML Health (Vitamin 00:00: INTRAMUSCU B-12) 1000 00 LARLY ONCE MCG/ML EVERY injection MONTH cyanocobala 2020-0 Yes INJECT 1 [facility] min 9-28 ML Health (Vitamin 00:00: INTRAMUSCU B-12) 1000 00 LARLY ONCE MCG/ML EVERY injection MONTH cyanocobala 2020-0 Yes INJECT 1 UT min 9-28 ML Health (Vitamin 00:00: INTRAMUSCU B-12) 1000 00 LARLY ONCE MCG/ML EVERY injection MONTH cyanocobala 2020-0 Yes INJECT 1 UT min 9-28 ML Health (Vitamin 00:00: INTRAMUSCU B-12) 1000 00 LARLY ONCE MCG/ML EVERY injection MONTH cyanocobala 2020-0 Yes INJECT 1 UT min 9-28 ML Health (Vitamin 00:00: INTRAMUSCU B-12) 1000 00 LARLY ONCE MCG/ML EVERY injection MONTH cyanocobala 2020-0 Yes [id number] INJECT 1 Univers min 1,000 9-28 ML ity of mcg/mL 00:00: INTRAMUSCU [place] injection 00 LARLY ONCE Medi dragan EVERY Branch MONTH cyanocobala 2020-0 Yes [id number] INJECT 1 Univers min 1,000 9-28 ML ity of mcg/mL 00:00: INTRAMUSCU [place] injection 00 LARLY ONCE Medi dragan EVERY Branch MONTH cyanocobala 2020-0 Yes [id number] INJECT 1 Univers min 1,000 9-28 ML ity of mcg/mL 00:00: INTRAMUSCU [place] injection 00 LARLY ONCE Medi dragan EVERY Branch MONTH cyanocobala 2020-0 Yes [id number] INJECT 1 Univers min 1,000 9-28 ML ity of mcg/mL 00:00: INTRAMUSCU [place] injection 00 LARLY ONCE [facility] EVERY Branch MONTH cyanocobala 2020-0 Yes [id number] INJECT 1 [facility] min 1,000 9-28 ML ity of mcg/mL 00:00: INTRAMUSCU [place] injection 00 LARLY ONCE [facility] EVERY Branch MONTH cyanocobala 2020-0 Yes [id number] INJECT 1 [facility] min 1,000 9-28 ML ity of mcg/mL 00:00: INTRAMUSCU [place] injection 00 LARLY ONCE [facility] EVERY Branch MONTH cyanocobala 2020-0 Yes [id number] INJECT 1 [facility] min 1,000 9-28 ML ity of mcg/mL 00:00: INTRAMUSCU [place] injection 00 LARLY ONCE [facility] EVERY Branch MONTH cyanocobala 2020-0 Yes [id number] INJECT 1 [facility] min 1,000 9-28 ML ity of mcg/mL 00:00: INTRAMUSCU [place] injection 00 LARLY ONCE [facility] EVERY Branch MONTH cyanocobala 2020-0 Yes [id number] INJECT 1 [facility] min 1,000 9-28 ML ity of mcg/mL 00:00: INTRAMUSCU [place] injection 00 LARLY ONCE [facility] EVERY Branch MONTH cyanocobala 2020-0 Yes [id number] INJECT 1 [facility] min 1,000 9-28 ML ity of mcg/mL 00:00: INTRAMUSCU [place] injection 00 LARLY ONCE [facility] EVERY Branch MONTH cyanocobala 2020-0 Yes [id number] INJECT 1 [facility] min 1,000 9-28 ML ity of mcg/mL 00:00: INTRAMUSCU [place] injection 00 LARLY ONCE [facility] drag[facility] EVERY Branch MONTH cyanocobala 2020-0 Yes [id number] INJECT 1 [facility] min 1,000 9-28 ML ity of mcg/mL 00:00: INTRAMUSCU [place] injection 00 LARLY ONCE [facility] EVERY Branch MONTH cyanocobala 2020-0 Yes [id number] INJECT 1 [facility] min 1,000 9-28 ML ity of mcg/mL 00:00: INTRAMUSCU [place] injection 00 LARLY ONCE [facility] EVERY Branch MONTH cyanocobala 2020-0 Yes [id number] INJECT 1 [facility] min 1,000 9-28 ML ity of mcg/mL 00:00: INTRAMUSCU [place] injection 00 LARLY ONCE [facility] EVERY Branch MONTH cyanocobala 2020-0 Yes [id number] INJECT 1 [facility] min 1,000 9-28 ML ity of mcg/mL 00:00: INTRAMUSCU [place] injection 00 LARLY ONCE [facility] EVERY Branch MONTH cyanocobala 2020-0 Yes [id number] INJECT 1 [facility] min 1,000 9-28 ML ity of mcg/mL 00:00: INTRAMUSCU [place] injection 00 LARLY ONCE [facility] EVERY Branch MONTH cyanocobala 2020-0 Yes [id number] INJECT 1 [facility] min 1,000 9-28 ML ity of mcg/mL 00:00: INTRAMUSCU [place] injection 00 LARLY ONCE [facility] EVERY Branch MONTH cyanocobala 2020-0 Yes [id number] INJECT 1 [facility] min 1,000 9-28 ML ity of mcg/mL 00:00: INTRAMUSCU [place] injection 00 LARLY ONCE [facility] EVERY Branch MONTH cyanocobala 2020-0 Yes [id number] INJECT 1 [facility] min 1,000 9-28 ML ity of mcg/mL 00:00: INTRAMUSCU [place] injection 00 LARLY ONCE [facility] EVERY Branch MONTH tolterodine 2020-0 2020- No 4mg Take 4 mg [facility] [place] 4 mg 24 05-25 by mouth ity of hr capsule 15:06: 00:[place]. [place] :00 [facility] tolterodine 2020-0 2020- No 4mg Take 4 mg [facility] [place] 4 mg 24 05-25 by mouth ity of hr capsule 15:06: 00:[place]. [place] :00 [facility] LEVOTHYROXI 2020-0 Yes [id number] TAKE ONE [facility] [place] 75 mcg 8-03 TABLET BY ity o f tablet 00:00: MOUTH [place] 00 EVERY Medical MORNING Branch LEVOTHYROXI 2020-0 Yes [id number] TAKE ONE [facility] [place] 75 mcg 8-03 TABLET BY ity o f tablet 00:00: MOUTH [place] 00 EVERY Medical MORNING Branch LEVOTHYROXI 2020-0 Yes [id number] TAKE ONE [facility] [place] 75 mcg 8-03 TABLET BY ity o f tablet 00:00: MOUTH [place] 00 EVERY Medical MORNING Branch LEVOTHYROXI 2020-0 Yes [id number] TAKE ONE [facility] [place] 75 mcg 8-03 TABLET BY ity o f tablet 00:00: MOUTH [place] 00 EVERY Medical MORNING Branch LEVOTHYROXI 2020-0 Yes [id number] TAKE ONE [facility] [place] 75 mcg 8-03 TABLET BY ity o f tablet 00:00: MOUTH [place] 00 EVERY Medical MORNING Branch LEVOTHYROXI 2020-0 2020- No [id number] TAKE ONE [facility] [place] 75 mcg 8-03 09-30 TABLET BY ity of tablet 00:00: 00:00 MOUTH [place] 00 :00 EVERY Medical MORNING Branch LEVOTHYROXI 2020-0 Yes [id number] TAKE ONE [facility] NE 75 mcg 7-01 TABLET BY ity o f tablet 00:00: MOUTH [place] 00 EVERY Medical MORNING Branch LEVOTHYROXI 2020-0 2020- No [id number] TAKE ONE [facility] [place] 75 mcg 7-01 08-03 TABLET BY ity of tablet 00:00: 00:00 MOUTH [place] 00 :00 EVERY Medical MORNING Branch azithromyci 2020-0 Yes [id number] 500mg Take 1 [facility] n 500 mg 6-19 tablet by ity of tablet 00:00: mouth [place] 00 daily. Medical Branch azithromyci 2020-0 Yes [id number] 500mg Take 1 [facility] n 500 mg 6-19 tablet by ity of tablet 00:00: mouth [place] 00 daily. Medical Branch azithromyci 2020-0 Yes [id number] 500mg Take 1 [facility] n 500 mg 6-19 tablet by ity of tablet 00:00: mouth [place] 00 daily. Medical Branch azithromyci 2020-0 2020- No [id number] 500mg Take 1 [facility] n 500 mg 02-18 tablet by ity o f tablet 00:00: 00:00 mouth [place] 00 :00 daily. Medical Branch azithromyci 2020-0 2020- No [id number] 500mg Take 1 [facility] n 500 mg 02-18 tablet by ity o f tablet 00:00: 00:00 mouth [place] 00 :00 daily. Medical Branch LEVOTHYROXI 2020-0 Yes [id number] TAKE ONE [facility] NE 75 mcg 6-01 TABLET BY ity o f tablet 00:00: MOUTH [place] 00 EVERY Medical MORNING Branch LEVOTHYROXI 2020-0 2020- No [id number] TAKE ONE [facility] NE 75 mcg 6-01 - TABLET BY ity of tablet 00:00: 00:00 MOUTH [place] 00 :00 EVERY Medical MORNING Branch LEVOTHYROXI 2020-0 Yes [id number] TAKE ONE [facility] NE 75 mcg 5-04 TABLET BY ity o f tablet 00:00: MOUTH [place] 00 EVERY Medical MORNING Branch LEVOTHYROXI 2020-0 Yes [id number] TAKE ONE [facility] NE 75 mcg 5-04 TABLET BY ity o f tablet 00:00: MOUTH [place] 00 EVERY Medical MORNING Branch levothyroxi 2020-0 Yes [id number] 75ug Take 1 [facility] ne 75 mcg 2-25 tablet by ity o f tablet 00:00: mouth [place] 00 every Medical morning. Branch levothyroxi 2020-0 Yes [id number] 75ug Take 1 [facility] ne 75 mcg 2-25 tablet by ity o f tablet 00:00: mouth [place] 00 every Medical morning. Branch levothyroxi 2020-0 Yes [id number] 75ug Take 1 [facility] ne 75 mcg 2-25 tablet by ity o f tablet 00:00: mouth [place] 00 every Medical morning. Branch levothyroxi 2020-0 Yes [id number] 75ug Take 1 [facility] ne 75 mcg 2-25 tablet by ity o f tablet 00:00: mouth [place] 00 every Medical morning. Branch levothyroxi 2020-0 Yes [id number] 75ug Take 1 [facility] ne 75 mcg 2-25 tablet by ity o f tablet 00:00: mouth [place] 00 every Medical morning. Branch levothyroxi 2020-0 Yes [id number] 75ug Take 1 [facility] ne 75 mcg 2-25 tablet by ity o f tablet 00:00: mouth [place] 00 every Medical morning. Branch levothyroxi 2020- No [id number] 75ug Take 1 [facility] ne 75 mcg 2-25 05-04 tablet by ity of tablet 00:00: 00:00 mouth [place] 00 :00 every Medical morning. Branch fluconazole 2020- No [id number] 150mg Take 1 [facility] (DIFLUCAN) 2-03 02-04 tablet by ity of 150 mg 00:00: 05:59 mouth [place] tablet 00 :00 now for 1 Medical dose. Branch triamcinolo 2020- No [id number] 40mg [facility] ne 09-28 [id number] ity of acetonide 19:30: 07:29 [place] (KENALOG) 00 :00 Medical injection Branch 40 mg triamcinolo 2020- No [id number] 40mg [facility] ne 09-28 [id number] ity of acetonide 19:30: 18:31 [place] (KENALOG) 00 :39 Medical injection Branch 40 mg triamcinolo 2020- No [id number] 40mg [facility] ne 09-28 [id number] ity of acetonide 19:30: 18:31 [place] (KENALOG) 00 :39 Medical injection Branch 40 mg triamcinolo 2020- No [id number] 40mg [facility] ne 09-28 [id number] ity of acetonide 19:30: 18:31 [place] (KENALOG) 00 :39 Medical injection Branch 40 mg calcium 2019-0 Yes Take by [facility] carbonate/v 09-28 mouth. ity of itamin D3 18:14: [place] (CALCIUM 23 Medical 600 + D,3, Branch ORAL) tolterodine 2019-0 Yes 4mg Take 4 mg U n[facility] [place] 4 mg 24 09-28 by mouth ity o f hr capsule 18:14: daily. [address] Branch MAGNESIUM 2019-0 Yes Take by Unive rs CITRATE 09-28 mouth. ity of ORAL 18:14: [address] Branch riboflavin, 2020-0 Yes Take by Uni vers vitamin B2, 09-28 mouth. ity of (VITAMIN 18:14: [place] B-2 ORAL) 23 Medical Branch calcium 2019-0 Yes Take by [facility] carbonate/v 09-28 mouth. ity of itamin D3 18:14: [place] (CALCIUM 23 Medical 600 + D,3, Branch ORAL) tolterodine 2020-0 Yes 4mg Take 4 mg U [place]ivers [place] 4 mg 24 -27 by mouth ity o f hr capsule 18:14: daily. [address] MAGNESIUM 2020-0 Yes Take by Unive rs CITRATE 09-28 mouth. ity of ORAL 18:14: [address] riboflavin, 2020-0 Yes Take by Uni vers vitamin B2, - mouth. ity of (VITAMIN 18:14: [place] B-2 ORAL) 23 [facility] calcium 2020-0 Yes Take by Univers carbonate/v - mouth. ity of itamin D3 18:14: [place] (CALCIUM 23 Medical 600 + D,3, Branch ORAL) tolterodine 2020-0 Yes 4mg Take 4 mg U [place]ivers [place] 4 mg 24 - by mouth ity o f hr capsule 18:14: daily. [address] MAGNESIUM 2020-0 Yes Take by Unive rs CITRATE 09-28 mouth. ity of ORAL 18:14: [address] riboflavin, 2020-0 Yes Take by Uni vers vitamin B2, 09-28 mouth. ity of (VITAMIN 18:14: [place] B-2 ORAL) [address] [place] [address] calcium 2020-0 Yes Take by Univers carbonate/v - mouth. ity of itamin D3 18:14: [place] (CALCIUM 23 Medical 600 + D,3, Branch ORAL) tolterodine 2020-0 Yes 4mg Take 4 mg U nivers [place] 4 mg 24 - by mouth ity o f hr capsule 18:14: daily. [address] MAGNESIUM 2020-0 Yes Take by Unive rs CITRATE 09-28 mouth. ity of ORAL 18:14: [address] riboflavin, 2020-0 Yes Take by Uni vers vitamin B2, - mouth. ity of (VITAMIN 18:14: [place] B-2 ORAL) 23 [facility] calcium 2020-0 Yes Take by Univers carbonate/v - mouth. ity of itamin D3 18:14: [place] (CALCIUM 23 Medical 600 + D,3, Branch ORAL) tolterodine 2020-0 Yes 4mg Take 4 mg [place] 4 mg 24 -27 by mouth ity o f hr capsule 18:14: daily. [address] MAGNESIUM 2020-0 Yes Take by Unive rs CITRATE 09-28 mouth. ity of ORAL 18:14: [address] riboflavin, 2019-0 Yes Take by Uni vers vitamin B2, 09-28 mouth. ity of (VITAMIN 18:14: [place] B-2 ORAL) [address] [place] [address] calcium 2019-0 Yes Take by [facility] carbonate/v 09-28 mouth. ity of itamin D3 18:14: [place] (CALCIUM 23 Medical 600 + D,3, Branch ORAL) tolterodine 2020-0 Yes 4mg Take 4 mg [place] 4 mg 24 09-28 by mouth ity o f hr capsule 18:14: daily. [address] MAGNESIUM 2019-0 Yes Take by Unive rs CITRATE 09-28 mouth. ity of ORAL 18:14: [address] riboflavin, 0 Yes Take by Uni vers vitamin B2, 09-28 mouth. ity of (VITAMIN 18:14: [place] B-2 ORAL) [address] [place] [address] calcium 0 Yes Take by [facility] carbonate/v 09-28 mouth. ity of itamin D3 18:14: [place] (CALCIUM 23 Medical 600 + D,3, Branch ORAL) tolterodine 2019-0 Yes 4mg Take 4 mg [place] 4 mg 24 09-28 by mouth ity o f hr capsule 18:14: daily. [address] MAGNESIUM 2019-0 Yes Take by Unive rs CITRATE 09-28 mouth. ity of ORAL 18:14: [address] riboflavin, 2019-0 Yes Take by Uni vers vitamin B2, 09-28 mouth. ity of (VITAMIN 18:14: [place] B-2 ORAL) [address] [place] [address] calcium 2019-0 Yes Take by [facility] carbonate/v 09-28 mouth. ity of itamin D3 18:14: [place] (CALCIUM 23 Medical 600 + D,3, Branch ORAL) tolterodine 2019-0 Yes 4mg Take 4 mg [place] 4 mg 24 09-28 by mouth ity o f hr capsule 18:14: daily. [address] MAGNESIUM 2019-0 Yes Take by Unive rs CITRATE 09-28 mouth. ity of ORAL 18:14: [address] riboflavin, 2019-0 Yes Take by Uni vers vitamin B2, 09-28 mouth. ity of (VITAMIN 18:14: [place] B-2 ORAL) [address] [place] [address] calcium 2019-0 Yes Take by [facility] carbonate/v 09-28 mouth. ity of itamin D3 18:14: [place] (CALCIUM 23 Medical 600 + D,3, Branch ORAL) tolterodine 2020-0 Yes 4mg Take 4 mg [place] 4 mg 24 - by mouth ity o f hr capsule 18:14: daily. [address] MAGNESIUM 2020-0 Yes Take by Unive rs CITRATE 09-28 mouth. ity of ORAL 18:14: [address] riboflavin, 2020-0 Yes Take by Uni vers vitamin B2, 09-28 mouth. ity of (VITAMIN 18:14: [place] B-2 ORAL) 23 [facility] calcium 2020-0 Yes Take by Univers carbonate/v 09-28 mouth. ity of itamin D3 18:14: [place] (CALCIUM 23 Medical 600 + D,3, Branch ORAL) tolterodine 2020-0 Yes 4mg Take 4 mg [place] 4 mg 24 09-28 by mouth ity o f hr capsule 18:14: daily. [address] MAGNESIUM 2020-0 Yes Take by Unive rs CITRATE 09-28 mouth. ity of ORAL 18:14: [address] riboflavin, 2020-0 Yes Take by Uni vers vitamin B2, 09-28 mouth. ity of (VITAMIN 18:14: [place] B-2 ORAL) [address] [place] [address] calcium 2020-0 Yes Take by [facility] carbonate/v 09-28 mouth. ity of itamin D3 18:14: [place] (CALCIUM 23 Medical 600 + D,3, Branch ORAL) tolterodine 2020-0 Yes 4mg Take 4 mg [place] 4 mg 24 09-28 by mouth ity o f hr capsule 18:14: daily. [address] MAGNESIUM 2020-0 Yes Take by Unive rs CITRATE 09-28 mouth. ity of ORAL 18:14: [address] riboflavin, 2020-0 Yes Take by Uni vers vitamin B2, 09-28 mouth. ity of (VITAMIN 18:14: [place] B-2 ORAL) [address] [place] [address] calcium 2020-0 Yes Take by Univers carbonate/v 09-28 mouth. ity of itamin D3 18:14: [place] (CALCIUM 23 Medical 600 + D,3, Branch ORAL) tolterodine 2020-0 Yes 4mg Take 4 mg [place] 4 mg 24 -27 by mouth ity o f hr capsule 18:14: daily. [address] MAGNESIUM 2020-0 Yes Take by Unive rs CITRATE 09-28 mouth. ity of ORAL 18:14: [address] riboflavin, 2020-0 Yes Take by Uni vers vitamin B2, 09-28 mouth. ity of (VITAMIN 18:14: [place] B-2 ORAL) [address] [place] [address] calcium 2019-0 Yes Take by [facility] carbonate/v 09-28 mouth. ity of itamin D3 18:14: [place] (CALCIUM 23 Medical 600 + D,3, Branch ORAL) tolterodine 2020-0 Yes 4mg Take 4 mg [place] 4 mg 24 09-28 by mouth ity o f hr capsule 18:14: daily. [address] MAGNESIUM 2019-0 Yes Take by Unive rs CITRATE 09-28 mouth. ity of ORAL 18:14: [address] riboflavin, 2019-0 Yes Take by Uni vers vitamin B2, 09-28 mouth. ity of (VITAMIN 18:14: [place] B-2 ORAL) [address] [place] [address] calcium 2019-0 Yes Take by Univers carbonate/v 09-28 mouth. ity of itamin D3 18:14: [place] (CALCIUM 23 Medical 600 + D,3, Branch ORAL) tolterodine 2019-0 Yes 4mg Take 4 mg [place] 4 mg 24 09-28 by mouth ity o f hr capsule 18:14: daily. [address] MAGNESIUM 2019-0 Yes Take by Unive rs CITRATE 09-28 mouth. ity of ORAL 18:14: [address] riboflavin, 2019-0 Yes Take by Uni vers vitamin B2, 09-28 mouth. ity of (VITAMIN 18:14: [place] B-2 ORAL) [address] [place] [address] calcium 2020-0 Yes Take by [facility] carbonate/v 09-28 mouth. ity of itamin D3 18:14: [place] (CALCIUM 23 Medical 600 + D,3, Branch ORAL) tolterodine 2020-0 Yes 4mg Take 4 mg [place] 4 mg 24 09-28 by mouth ity o f hr capsule 18:14: daily. [address] MAGNESIUM 2020-0 Yes Take by Unive rs CITRATE 09-28 mouth. ity of ORAL 18:14: [address] riboflavin, 2020-0 Yes Take by Uni vers vitamin B2, 09-28 mouth. ity of (VITAMIN 18:14: [place] B-2 ORAL) [address] [place] [address] calcium 2020-0 Yes Take by [facility] carbonate/v 09-28 mouth. ity of itamin D3 18:14: [place] (CALCIUM 23 Medical 600 + D,3, Branch ORAL) tolterodine 2020-0 Yes 4mg Take 4 mg [place] 4 mg 24 - by mouth ity o f hr capsule 18:14: daily. [address] MAGNESIUM 2020-0 Yes Take by Unive rs CITRATE 09-28 mouth. ity of ORAL 18:14: [address] riboflavin, 2020-0 Yes Take by Uni vers vitamin B2, 09-28 mouth. ity of (VITAMIN 18:14: [place] B-2 ORAL) [address] [place] [address] calcium 2020-0 Yes Take by Univers carbonate/v 09-28 mouth. ity of itamin D3 18:14: [place] (CALCIUM 23 Medical 600 + D,3, Branch ORAL) tolterodine 2020-0 Yes 4mg Take 4 mg [place] 4 mg 24 09-28 by mouth ity o f hr capsule 18:14: daily. [address] MAGNESIUM 2020-0 Yes Take by Unive rs CITRATE 09-28 mouth. ity of ORAL 18:14: [address] riboflavin, 2020-0 Yes Take by Uni vers vitamin B2, 09-28 mouth. ity of (VITAMIN 18:14: [place] B-2 ORAL) [address] [place] [address] calcium 2020-0 Yes Take by Univers carbonate/v 09-28 mouth. ity of itamin D3 18:14: [place] (CALCIUM 23 Medical 600 + D,3, Branch ORAL) tolterodine 2020-0 Yes 4mg Take 4 mg [place] 4 mg 24 09-28 by mouth ity o f hr capsule 18:14: daily. [address] MAGNESIUM 2020-0 Yes Take by Unive rs CITRATE 09-28 mouth. ity of ORAL 18:14: [address] riboflavin, 2020-0 Yes Take by Uni vers vitamin B2, 09-28 mouth. ity of (VITAMIN 18:14: [place] B-2 ORAL) [address] [place] [address] calcium 2020-0 Yes Take by Univers carbonate/v 09-28 mouth. ity of itamin D3 18:14: [place] (CALCIUM 23 Medical 600 + D,3, Branch ORAL) tolterodine 2020-0 Yes 4mg Take 4 mg [place] 4 mg 24 - by mouth ity o f hr capsule 18:14: daily. [place] 23 Medical Branch MAGNESIUM 2020-0 Yes Take by Unive rs CITRATE - mouth. ity of ORAL 18:14: [address] riboflavin, 2020-0 Yes Take by Uni vers vitamin B2, 1 mouth. ity of (VITAMIN 18:14: [place] B-2 ORAL) [address] [place] [address] calcium 2020-0 Yes Take by Univers carbonate/v 1-27 mouth. ity of itamin D3 18:14: [place] (CALCIUM 23 Medical 600 + D,3, Branch ORAL) MAGNESIUM 2020-0 Yes Take by Unive rs CITRATE 09-28 mouth. ity of ORAL 18:14: [address] riboflavin, 2020-0 Yes Take by Uni vers vitamin B2, - mouth. ity of (VITAMIN 18:14: [place] B-2 ORAL) [address] [place] [address] calcium 2020-0 Yes Take by [facility] carbonate/v 09-28 mouth. ity of itamin D3 18:14: [place] (CALCIUM 23 Medical 600 + D,3, Branch ORAL) MAGNESIUM 2020-0 Yes Take by Unive rs CITRATE 09-28 mouth. ity of ORAL 18:14: [address] riboflavin, 2020-0 Yes Take by Uni vers vitamin B2, 09-28 mouth. ity of (VITAMIN 18:14: [place] B-2 ORAL) [address] [place] [address] calcium 2020-0 Yes Take by Univers carbonate/v -27 mouth. ity of itamin D3 18:14: [place] (CALCIUM 23 Medical 600 + D,3, Branch ORAL) MAGNESIUM 2020-0 Yes Take by Unive rs CITRATE 09-28 mouth. ity of ORAL 18:14: [address] riboflavin, 2020-0 Yes Take by Uni vers vitamin B2, 27 mouth. ity of (VITAMIN 18:14: [place] B-2 ORAL) [address] [place] [address] calcium 2020-0 Yes Take by Univers carbonate/v -27 mouth. ity of itamin D3 18:14: [place] (CALCIUM 23 Medical 600 + D,3, Branch ORAL) MAGNESIUM 2020-0 Yes Take by Unive rs CITRATE 27 mouth. ity of ORAL 18:14: [address] riboflavin, 2020-0 Yes Take by Uni vers vitamin B2, 1-27 mouth. ity of (VITAMIN 18:14: [place] B-2 ORAL) [address] [place] [address] calcium 2020-0 Yes Take by Univers carbonate/v 1-27 mouth. ity of itamin D3 18:14: [place] (CALCIUM 23 Medical 600 + D,3, Branch ORAL) MAGNESIUM 2020-0 Yes Take by Unive rs CITRATE 1-27 mouth. ity of ORAL 18:14: [address] Branch riboflavin, 2020-0 Yes Take by Uni vers vitamin B2, 1-27 mouth. ity of (VITAMIN 18:14: [place] B-2 ORAL) 23 [facility] calcium 2020-0 Yes Take by Univers carbonate/v 1-27 mouth. ity of itamin D3 18:14: [place] (CALCIUM 23 Medical 600 + D,3, Branch ORAL) MAGNESIUM 2020-0 Yes Take by Unive rs CITRATE - mouth. ity of ORAL 18:14: [address] riboflavin, 2020-0 Yes Take by Uni vers vitamin B2, 09-28 mouth. ity of (VITAMIN 18:14: [place] B-2 ORAL) [address] [place] [address] calcium 2020-0 Yes Take by Univers carbonate/v -27 mouth. ity of itamin D3 18:14: [place] (CALCIUM 23 Medical 600 + D,3, Branch ORAL) MAGNESIUM 2020-0 Yes Take by Unive rs CITRATE 09-28 mouth. ity of ORAL 18:14: [address] riboflavin, 2020-0 Yes Take by Uni vers vitamin B2, -27 mouth. ity of (VITAMIN 18:14: [place] B-2 ORAL) [address] [place] [address] calcium 2020-0 Yes Take by Univers carbonate/v -27 mouth. ity of itamin D3 18:14: [place] (CALCIUM 23 Medical 600 + D,3, Branch ORAL) MAGNESIUM 2020-0 Yes Take by Unive rs CITRATE 09-28 mouth. ity of ORAL 18:14: [address] riboflavin, 2020-0 Yes Take by Uni vers vitamin B2, 1-27 mouth. ity of (VITAMIN 18:14: [place] B-2 ORAL) [address] [place] [address] calcium 2020-0 Yes Take by Univers carbonate/v 1-27 mouth. ity of itamin D3 18:14: [place] (CALCIUM 23 Medical 600 + D,3, Branch ORAL) MAGNESIUM 2020-0 Yes Take by Unive rs CITRATE 1-27 mouth. ity of ORAL 18:14: [address] riboflavin, 2020-0 Yes Take by Uni vers vitamin B2, 1-27 mouth. ity of (VITAMIN 18:14: [place] B-2 ORAL) [address] [place] [address] calcium 2020-0 Yes Take by Univers carbonate/v 1-27 mouth. ity of itamin D3 18:14: [place] (CALCIUM 23 Medical 600 + D,3, Branch ORAL) MAGNESIUM 2020-0 Yes Take by Unive rs CITRATE 1-27 mouth. ity of ORAL 18:14: [address] riboflavin, 2020-0 Yes Take by Uni vers vitamin B2, 1-27 mouth. ity of (VITAMIN 18:14: [place] B-2 ORAL) 23 [facility] calcium 2020-0 Yes Take by Univers carbonate/v 1-27 mouth. ity of itamin D3 18:14: [place] (CALCIUM 23 Medical 600 + D,3, Branch ORAL) MAGNESIUM 2020-0 Yes Take by Unive rs CITRATE 1-27 mouth. ity of ORAL 18:14: [address] riboflavin, 2020-0 Yes Take by Uni vers vitamin B2, -27 mouth. ity of (VITAMIN 18:14: [place] B-2 ORAL) [address] [place] [address] calcium 2020-0 Yes Take by Univers carbonate/v 1-27 mouth. ity of itamin D3 18:14: [place] (CALCIUM 23 Medical 600 + D,3, Branch ORAL) MAGNESIUM 2020-0 Yes Take by Unive rs CITRATE 1-27 mouth. ity of ORAL 18:14: [address] riboflavin, 2020-0 Yes Take by Uni vers vitamin B2, 1-27 mouth. ity of (VITAMIN 18:14: [place] B-2 ORAL) [address] [place] [address] calcium 2020-0 Yes Take by Univers carbonate/v 1-27 mouth. ity of itamin D3 18:14: [place] (CALCIUM 23 Medical 600 + D,3, Branch ORAL) MAGNESIUM 2020-0 Yes Take by Unive rs CITRATE 1-27 mouth. ity of ORAL 18:14: [address] riboflavin, 2020-0 Yes Take by Uni vers vitamin B2, 1-27 mouth. ity of (VITAMIN 18:14: [place] B-2 ORAL) [address] [place] [address] calcium 2020-0 Yes Take by Univers carbonate/v 1-27 mouth. ity of itamin D3 18:14: [place] (CALCIUM 23 Medical 600 + D,3, Branch ORAL) MAGNESIUM 2020-0 Yes Take by Unive rs CITRATE 1-27 mouth. ity of ORAL 18:14: [address] riboflavin, 2020-0 Yes Take by Uni vers vitamin B2, 1-27 mouth. ity of (VITAMIN 18:14: [place] B-2 ORAL) 23 [facility] calcium 2020-0 Yes Take by Univers carbonate/v 09-28 mouth. ity of itamin D3 18:14: [place] (CALCIUM 23 Medical 600 + D,3, Branch ORAL) MAGNESIUM 2020-0 Yes Take by Unive rs CITRATE 09-28 mouth. ity of ORAL 18:14: [address] riboflavin, 2020-0 Yes Take by Uni vers vitamin B2, 09-28 mouth. ity of (VITAMIN 18:14: [place] B-2 ORAL) 23 [facility] calcium 2020-0 Yes Take by Univers carbonate/v 09-28 mouth. ity of itamin D3 18:14: [place] (CALCIUM 23 Medical 600 + D,3, Branch ORAL) MAGNESIUM 2020-0 Yes Take by Unive rs CITRATE 09-28 mouth. ity of ORAL 18:14: [address] riboflavin, 2020-0 Yes Take by Uni vers vitamin B2, 09-28 mouth. ity of (VITAMIN 18:14: [place] B-2 ORAL) 23 [facility] calcium 2020-0 Yes Take by Univers carbonate/v 09-28 mouth. ity of itamin D3 18:14: [place] (CALCIUM 23 Medical 600 + D,3, Branch ORAL) MAGNESIUM 2020-0 Yes Take by Unive rs CITRATE 09-28 mouth. ity of ORAL 18:14: [address] riboflavin, 2020-0 Yes Take by Uni vers vitamin B2, 09-28 mouth. ity of (VITAMIN 18:14: [place] B-2 ORAL) [address] [place] [address] calcium 2020-0 Yes Take by Univers carbonate/v 09-28 mouth. ity of itamin D3 18:14: [place] (CALCIUM 23 Medical 600 + D,3, Branch ORAL) MAGNESIUM 2020-0 Yes Take by Unive rs CITRATE 09-28 mouth. ity of ORAL 18:14: [address] riboflavin, 2020-0 Yes Take by Uni vers vitamin B2, 09-28 mouth. ity of (VITAMIN 18:14: [place] B-2 ORAL) 23 [facility] calcium 2020-0 Yes Take by Univers carbonate/v 09-28 mouth. ity of itamin D3 18:14: [place] (CALCIUM 23 Medical 600 + D,3, Branch ORAL) tolterodine 2020-0 Yes 4mg Take 4 mg [place] 4 mg 24 1-27 by mouth ity o f hr capsule 18:14: daily. [place] [address] Medical Branch MAGNESIUM 2020-0 Yes Take by Unive rs CITRATE 1-27 mouth. ity of ORAL 18:14: [place] [address] Medical Branch riboflavin, 2020-0 Yes Take by Uni vers vitamin B2, 1-27 mouth. ity of (VITAMIN 18:14: [place] B-2 ORAL) [facility] topiramate 2020-0 Yes 100mg Take 100 Un [place] (QUDEXY XR) 1-27 mg by ity of 150 mg CSpX 18:10: mouth [place] 10 bedtime. [facility] topiramate 2020-0 Yes 100mg Take 100 [place] (QUDEXY XR) 1-27 mg by ity of 150 mg CSpX 18:10: [place] 10 bedtime. [facility] topiramate 2020-0 Yes 100mg Take 100 [place] (QUDEXY XR) 1-27 mg by ity of 150 mg CSpX 18:10: [place] 10 bedtime. [facility] topiramate 2020-0 Yes 100mg Take 100 [place] (QUDEXY XR) 1-27 mg by ity of 150 mg CSpX 18:10: [place] 10 bedtime. [facility] topiramate 2020-0 Yes 100mg Take 100 Un [facility] (QUDEXY XR) 1-27 mg by ity of 150 mg CSpX 18:10: [place] 10 bedtime. [facility] topiramate 2020-0 Yes 100mg Take 100 [facility] [place] (QUDEXY XR) 1-27 mg by ity of 150 mg CSpX 18:10: mouth [place] 10 bedtime. [facility] topiramate 2020-0 Yes 100mg Take 100 [facility] [place] (QUDEXY XR) 1-27 mg by ity of 150 mg CSpX 18:10: mouth [place] 10 bedtime. [facility] topiramate 2020-0 Yes 100mg Take 100 [place] (QUDEXY XR) 1-27 mg by ity of 150 mg CSpX 18:10: mouth [place] 10 bedtime. [facility] topiramate 2020-0 Yes 100mg Take 100 [place] (QUDEXY XR) 1-27 mg by ity of 150 mg CSpX 18:10: mouth [place] 10 bedtime. [facility] topiramate 2020-0 Yes 100mg Take 100 [place] (QUDEXY XR) 1-27 mg by ity of 150 mg CSpX 18:10: mouth [place] 10 bedtime. [facility] topiramate 2020-0 Yes 100mg Take 100 [place] (QUDEXY XR) 1-27 mg by ity of 150 mg CSpX 18:10: mouth [place] 10 bedtime. [facility] topiramate 2020-0 Yes 100mg Take 100 [place] (QUDEXY XR) 1-27 mg by ity of 150 mg CSpX 18:10: mouth [place] 10 bedtime. [facility] topiramate 2020-0 Yes 100mg Take 100 [facility] [place] (QUDEXY XR) 1-27 mg by ity of 150 mg CSpX 18:10: mouth [place] 10 bedtime. [facility] topiramate 2020-0 Yes 100mg Take 100 [facility] [place] (QUDEXY XR) 1-27 mg by ity of 150 mg CSpX 18:10: mouth [place] 10 bedtime. [facility] topiramate 2020-0 Yes 100mg Take 100 [facility] [place] (QUDEXY XR) 1-27 mg by ity of 150 mg CSpX 18:10: mouth [place] 10 bedtime. [facility] topiramate 2020-0 Yes 100mg Take 100 [place] (QUDEXY XR) 1-27 mg by ity of 150 mg CSpX 18:10: mouth [place] 10 bedtime. [facility] topiramate 2020-0 Yes 100mg Take 100 [place] (QUDEXY XR) 1-27 mg by ity of 150 mg CSpX 18:10: mouth [place] 10 bedtime. [facility] topiramate 2020-0 Yes 100mg Take 100 [place] (QUDEXY XR) 1-27 mg by ity of 150 mg CSpX 18:10: mouth [place] 10 bedtime. [facility] topiramate 2020-0 Yes 100mg Take 100 [place] (QUDEXY XR) 1-27 mg by ity of 150 mg CSpX 18:10: mouth [place] 10 bedtime. [facility] topiramate 2020-0 Yes 100mg Take 100 [place] (QUDEXY XR) 1-27 mg by ity of 150 mg CSpX 18:10: mouth [place] 10 bedtime. [facility] topiramate 2020-0 Yes 100mg Take 100 [facility] [place] (QUDEXY XR) 1-27 mg by ity of 150 mg CSpX 18:10: mouth [place] 10 bedtime. [facility] topiramate 2020-0 Yes 100mg Take 100 [facility] [place] (QUDEXY XR) 1-27 mg by ity of 150 mg CSpX 18:10: mouth [place] 10 bedtime. [facility] topiramate 2020-0 Yes 100mg Take 100 [facility] [place] (QUDEXY XR) 1-27 mg by ity of 150 mg CSpX 18:10: mouth [place] 10 bedtime. [facility] topiramate 2020-0 Yes 100mg Take 100 [place] (QUDEXY XR) 1-27 mg by ity of 150 mg CSpX 18:10: mouth [place] 10 bedtime. [facility] topiramate 2020-0 Yes 100mg Take 100 [place] (QUDEXY XR) 1-27 mg by ity of 150 mg CSpX 18:10: mouth [place] 10 bedtime. [facility] topiramate 2020-0 Yes 100mg Take 100 [place] (QUDEXY XR) 1-27 mg by ity of 150 mg CSpX 18:10: mouth [place] 10 bedtime. [facility] topiramate 2020-0 Yes 100mg Take 100 [facility] [place] (QUDEXY XR) 1-27 mg by ity of 150 mg CSpX 18:10: mouth [place] 10 bedtime. [facility] topiramate 2020-0 Yes 100mg Take 100 [place] (QUDEXY XR) 1-27 mg by ity of 150 mg CSpX 18:10: mouth [place] 10 bedtime. [facility] topiramate 2020-0 Yes 100mg Take 100 [place] (QUDEXY XR) 1-27 mg by ity of 150 mg CSpX 18:10: mouth [place] 10 bedtime. [facility] topiramate 2020-0 Yes 100mg Take 100 [place] (QUDEXY XR) 1-27 mg by ity of 150 mg CSpX 18:10: mouth [place] 10 bedtime. [facility] topiramate 2020-0 Yes 100mg Take 100 [place] (QUDEXY XR) 1-27 mg by ity of 150 mg CSpX 18:10: mouth [place] 10 bedtime. [facility] topiramate 2020-0 Yes 100mg Take 100 [facility] [place] (QUDEXY XR) 1-27 mg by ity of 150 mg CSpX 18:10: mouth [place] 10 bedtime. [facility] topiramate 2020-0 Yes 100mg Take 100 [facility] [place] (QUDEXY XR) 1-27 mg by ity of 150 mg CSpX 18:10: mouth at [place] 10 bedtime. [facility] topiramate 2020-0 Yes 100mg Take 100 [place] (QUDEXY XR) 1-27 mg by ity of 150 mg CSpX 18:10: mouth at [place] 10 bedtime. [facility] topiramate 2020-0 Yes 100mg Take 100 [facility] [place] (QUDEXY XR) 1-27 mg by ity of 150 mg CSpX 18:10: mouth [place] 10 bedtime. [facility] topiramate 2020-0 Yes 100mg Take 100 [place] (QUDEXY XR) 1-27 mg by ity of 150 mg CSpX 18:10: mouth [place] 10 bedtime. [facility] topiramate 2020-0 Yes 100mg Take 100 [place] (QUDEXY XR) 1-27 mg by ity of 150 mg CSpX 18:10: mouth [place] 10 bedtime. [facility] topiramate 2020-0 Yes 100mg Take 100 [place] (QUDEXY XR) 1-27 mg by ity of 150 mg CSpX 18:10: mouth [place] 10 bedtime. [facility] MAGNESIUM 2020-0 Yes Take by Unive rs CITRATE - mouth. ity of ORAL 12:14: [place] [address] Medical Branch riboflavin, 2019-0 Yes Take by Uni vers vitamin B2, 09-28 mouth. ity of (VITAMIN 12:14: [place] B-2 ORAL) Medical Branch calcium 2020-0 Yes Take by [facility] carbonate/v 09-28 mouth. ity of itamin D3 12:14: [place] (CALCIUM Medical 600 + D,3, Branch ORAL) MAGNESIUM 2020-0 Yes Take by Unive rs CITRATE 09-28 mouth. ity of ORAL 12:14: [place] 23 Medical Branch riboflavin, 2020-0 Yes Take by Uni vers vitamin B2, 09-28 mouth. ity of (VITAMIN 12:14: [place] B-2 ORAL) 23 Medical Branch calcium 2019-0 Yes Take by Univers carbonate/v 09-28 mouth. ity of itamin D3 12:14: [place] (CALCIUM 23 Medical 600 + D,3, Branch ORAL) MAGNESIUM 2019-0 Yes Take by Unive rs CITRATE 09-28 mouth. ity of ORAL 12:14: [place] [address] Medical Branch riboflavin, 2019-0 Yes Take by Uni vers vitamin B2, 09-28 mouth. ity of (VITAMIN 12:14: [place] B-2 ORAL) 23 Medical Branch calcium 2019-0 Yes Take by [facility] carbonate/v 09-28 mouth. ity of itamin D3 12:14: [place] (CALCIUM 23 Medical 600 + D,3, Branch ORAL) MAGNESIUM 2019-0 Yes Take by Unive rs CITRATE 09-28 mouth. ity of ORAL 12:14: [place] [address] Medical Branch riboflavin, 0 Yes Take by Uni vers vitamin B2, 09-28 mouth. ity of (VITAMIN 12:14: [place] B-2 ORAL) 23 Medical Branch calcium 0 Yes Take by Univers carbonate/v 09-28 mouth. ity of itamin D3 12:14: [place] (CALCIUM 23 Medical 600 + D,3, Branch ORAL) topiramate 2019-0 Yes 100mg Take 100 Un [facility] (QUDEXY XR) 1-27 mg by ity of 150 mg CSpX 12:10: mouth [place] 10 bedtime. [facility] topiramate 2019-0 Yes 100mg Take 100 [place] (QUDEXY XR) 1-27 mg by ity of 150 mg CSpX 12:10: mouth at [place] 10 bedtime. [facility] topiramate 2019-0 Yes 100mg Take 100 [place] (QUDEXY XR) 1-27 mg by ity of 150 mg CSpX 12:10: mouth [place] 10 bedtime. [facility] topiramate 2020-0 Yes 100mg Take 100 [place] (QUDEXY XR) 1-27 mg by ity of 150 mg CSpX 12:10: mouth [place] 10 bedtime. [facility] naproxen 2019-0 2020- No [id number] 500mg Take 1 [facility] 500 mg 09-28 [id number] tablet by ity o f tablet 00:00: 05:59 mouth 2 [place] 00 :00 (two) Medical times Branch daily as needed for Pain (scale 1-3) or Pain (scale 4-6) for up to 30 days. naproxen 2019-0 2020- No [id number] 500mg Take 1 [facility] 500 mg 09-28 [id number] tablet by ity o f tablet 00:00: 05:59 mouth 2 [place] 00 :00 (two) Medical times Branch daily as needed for Pain (scale 1-3) or Pain (scale 4-6) for up to 30 days. naproxen 2019- 2020- No [id number] 500mg Take 1 [facility] 500 mg 09-28 [id number] tablet by ity o f tablet 00:00: 05:59 mouth 2 [place] 00 :00 (two) Medical times Branch daily as needed for Pain (scale 1-3) or Pain (scale 4-6) for up to 30 days. naproxen 2019- 2020- No [id number] 500mg Take 1 [facility] 500 mg 09-28 [id number] tablet by ity o f tablet 00:00: 05:59 mouth 2 [place] 00 :00 (two) Medical times Branch daily as needed for Pain (scale 1-3) or Pain (scale 4-6) for up to 30 days. naproxen 2019- 2020- No [id number] 500mg Take 1 [facility] 500 mg 09-28 [id number] tablet by ity o f tablet 00:00: 05:59 mouth 2 [place] 00 :00 (two) Medical times Branch daily as needed for Pain (scale 1-3) or Pain (scale 4-6) for up to 30 days. naproxen 2019- 2020- No [id number] 500mg Take 1 [facility] 500 mg 09-28 [id number] tablet by ity o f tablet 00:00: 05:59 mouth 2 [place] 00 :00 (two) Medical times Branch daily as needed for Pain (scale 1-3) or Pain (scale 4-6) for up to 30 days. naproxen 2019- 2020- No [id number] 500mg Take 1 [facility] 500 mg 09-28 [id number] tablet by ity o f tablet 00:00: 05:59 mouth 2 [place] 00 :00 (two) Medical times Branch daily as needed for Pain (scale 1-3) or Pain (scale 4-6) for up to 30 days. naproxen 2020-0 2020- No [id number] 500mg Take 1 [facility] 500 mg 09-28 [id number] tablet by ity o f tablet 00:00: 05:59 mouth 2 [place] 00 :00 (two) Medical times Branch daily as needed for Pain (scale 1-3) or Pain (scale 4-6) for up to 30 days. naproxen 2020-0 2020- No [id number] 500mg Take 1 [facility] 500 mg 09-28 [id number] tablet by ity o f tablet 00:00: 05:59 mouth 2 [place] 00 :00 (two) Medical times Branch daily as needed for Pain (scale 1-3) or Pain (scale 4-6) for up to 30 days. naproxen 2020-0 2020- No [id number] 500mg Take 1 [facility] 500 mg 09-28 [id number] tablet by ity o f tablet 00:00: 05:59 mouth 2 [place] 00 :00 (two) Medical times Branch daily as needed for Pain (scale 1-3) or Pain (scale 4-6) for up to 30 days. naproxen 2020-0 2020- No [id number] 500mg Take 1 [facility] 500 mg 09-28 [id number] tablet by ity o f tablet 00:00: 05:59 mouth 2 [place] 00 :00 (two) Medical times Branch daily as needed for Pain (scale 1-3) or Pain (scale 4-6) for up to 30 days. methylPREDN 2020-0 2020- No [id number] Take by [place] [id number] 09-28 [id number] mouth ity of mg tablets 00:00: 05:59 SEE-INSTRU [place] 00 :00 CTIONS for Medical 6 days. Branch follow package directions methylPREDN 2020-0 2020- No [id number] Take by [place] [address] 09-28 [id number] mouth ity of mg tablets 00:00: 05:59 SEE-INSTRU [place] 00 :00 CTIONS for Medical 6 days. Branch follow package directions methylPREDN 2020-0 2020- No [id number] Take by [place] [address] 09-28 [id number] mouth ity of mg tablets 00:00: 05:59 SEE-INSTRU [place] 00 :00 CTIONS for Medical 6 days. Branch follow package directions methylPREDN 2020- No [id number] Take by [place] [address] 09-28 [id number] mouth ity of mg tablets 00:00: 05:59 SEE-INSTRU [place] 00 :00 CTIONS for Medical 6 days. Branch follow package directions methylPREDN 2020- No [id number] Take by [place] [address] 09-28 [id number] mouth ity of mg tablets 00:00: 05:59 SEE-INSTRU [place] 00 :00 CTIONS for Medical 6 days. Branch follow package directions methylPREDN 2020- No [id number] Take by [place] [address] 09-28 [id number] mouth ity of mg tablets 00:00: 05:59 SEE-INSTRU [place] 00 :00 CTIONS for Medical 6 days. Branch follow package directions methylPREDN 2020- No [id number] Take by [place] [address] 09-28 [id number] mouth ity of mg tablets 00:00: 05:59 SEE-INSTRU [place] 00 :00 CTIONS for Medical 6 days. Branch follow package directions methylPREDN 2020- No [id number] 40mg Inject 40 [facility] 09-28 [id number] mg ity of sodium 00:00: 05:59 [place]ou [place] :00 sly once Medica l 40 mg now for 1 Branch injection dose. methylPREDN 2020- No [id number] 40mg Inject 40 [facility] 09-28 [id number] mg ity of sodium 00:00: 00:00 intravenou [place] 00 :00 sly once Medica l 40 mg now for 1 Branch injection dose. methylPREDN 2020- No [id number] 40mg Inject 40 [facility] 09-28 [id number] mg ity of sodium 00:00: 00:00 intravenou [place] 00 :00 sly once Medica l 40 mg now for 1 Branch injection dose. methylPREDN 2020- No [id number] 40mg Inject 40 [facility] 09-28 [id number] mg ity of sodium 00:00: 00:00 intravenou [place] 00 :00 sly once Medica l 40 mg now for 1 Branch injection dose. tolterodine 2018-09 Yes Take by Uni vers (DETROL LA) 2-18 mouth ity of 4 mg 24 hr 12:20: every [place] capsule 50 evening. MD Dav reilly [facility] magnesium 2018- Yes 2{tbl} Take 2 Univ ers chloride 2-18 tablets by ity o f (SLOW-MAG 12:20: mouth [place] ORAL) 50 daily. MD Dav reilly [facility] levothyroxi 2018-09 Yes 1{tbl} Take 1 Un jamie ne 2-18 tablet by ity of (SYNTHROID, 12:18: mouth [place] LEVOTHROID) 18 daily. 75 mcg Dav tablet [facility] omeprazole 2018-09 Yes 10mg Take 10 mg U nivers (PriLOSEC) 2-18 by mouth ity o f 10 MG 12:18: as needed. [place] capsule 18 Reported MD magaña Andmonicao 10/09/2016 [facility] ranitidine 2018-09 Yes 150mg Take 150 Un jamie (ZANTAC) 2-18 mg by ity of 150 mg 12:18: mouth as [place] tablet 18 needed. Reported [place] on n 10/09/2016 [facility] NAPROXEN 2018-09 Yes 2{tbl} Take 2 Unive rs SODIUM 2-18 tablets by ity of (ALEVE 12:18: mouth as [place] ORAL) 18 needed. MD Dav reilly [facility] topiramate 2018-09 Yes 150mg Take 150 Un jamie (QUDEXY XR) 2-18 mg by ity of 100 mg CSpX 12:18: mouth [place] 18 every MD evening. Dav reilly [facility] CYANOCOBALA 2018-09 Yes 1{appli Inject 1 Univers MIN, 2-18 cation} applicatio ity of VITAMIN 12:18: n as [place] B-12, (B-12 18 directed MD KIT every 30 [place] INJECTION) (thirty) n days. [facility] [place] TURMERIC, 2018-09 Yes 1{capsu 1 capsule Univers BULK, MISC 2-18 le} by ity of 12:18: miscellane [place] 18 ous route MD every [place] evening. n [facility] solifenacin 2018-09 Yes Take by Uni vers (VESICARE) 2-18 mouth. ity of 5 MG tablet 12:18: [place] 18 MD Dav reilly [facility] magnesium 2018- Yes 500mg Take 500 Uni vers oxide 500 2-18 mg by ity of mg tablet 12:18: mouth [place] 18 every MD evening. Dav reilly [facility] UNABLE TO 2018- Yes 2{tbl} 2 tablets U nivers FIND 2-18 twice ity of 12:18: daily. [facility] 18 Name: MD Mark Demarco Leg [facility]ram[facility] [place] levothyroxi 2018-09 Yes [id number] 75ug Take 1 Univers ne 75 mcg 1-12 tablet by ity o f tablet 00:00: mouth [place] 00 every Medical morning. [place] levothyroxi 2018-09 Yes [id number] 75ug Take 1 Univers ne 75 mcg 1-12 tablet by ity o f tablet 00:00: mouth [place] 00 every Medical morning. [place] levothyroxi 2018-09 Yes [id number] 75ug Take 1 Univers ne 75 mcg 1-12 tablet by ity o f tablet 00:00: mouth [place] 00 every Medical morning. [place] levothyroxi 2018-09 Yes [id number] 75ug Take 1 Univers ne 75 mcg 1-12 tablet by ity o f tablet 00:00: mouth [place] 00 every Medical morning. [place] levothyroxi 2018-09 Yes [id number] 75ug Take 1 Univers ne 75 mcg 1-12 tablet by ity o f tablet 00:00: mouth [place] 00 every Medical morning. [place] levothyroxi 2018-09 Yes [id number] 75ug Take 1 Univers ne 75 mcg 1-12 tablet by ity o f tablet 00:00: mouth [place] 00 every Medical morning. [place] levothyroxi 2018-09 Yes [id number] 75ug Take 1 Univers ne 75 mcg 1-12 tablet by ity o f tablet 00:00: mouth [place] 00 every Medical morning. [place] levothyroxi 2018-09 Yes [id number] 75ug Take 1 Univers ne 75 mcg 1-12 tablet by ity o f tablet 00:00: mouth [place] 00 every Medical morning. [place] levothyroxi 2018-09 Yes [id number] 75ug Take 1 Univers ne 75 mcg 1-12 tablet by ity o f tablet 00:00: mouth [place] 00 every Medical morning. [place] levothyroxi 2018-09 2020- No [id number] 75ug Take 1 Univers ne 75 mcg 1-12 02-25 tablet by ity of tablet 00:00: 00:00 mouth [place] 00 :00 every Medical morning. Branch LEVOTHYROXI 2019-0 Yes [id number] TAKE ONE Univers NE 75 mcg 9-04 TABLET BY ity o f tablet 00:00: MOUTH [place] 00 EVERY Medical MORNING Branch topiramate 2019-0 Yes 100mg Take 100 [place] (QUDEXY XR) 8-07 mg by ity of 100 mg CSpX 20:49: [place] 50 bedtime. Medical Branch topiramate [id number] Yes 100mg Take 100 [place] (QUDEXY XR) 8-07 mg by ity of 100 mg CSpX 20:49: mouth [place] 50 bedtime. Medical Branch LEVOTHYROXI 20190 Yes [id number] TAKE ONE Univers NE 75 mcg 7-19 TABLET BY ity o f tablet 00:00: MOUTH [place] 00 EVERY Medical MORNING Branch LEVOTHYROXI 2019-0 Yes [id number] TAKE ONE Univers NE 75 mcg 7-19 TABLET BY ity o f tablet 00:00: MOUTH [place] 00 EVERY Medical MORNING Branch LEVOTHYROXI 2019-0 2019- No [id number] TAKE ONE Univers NE 75 mcg 7-19 08-31 TABLET BY ity of tablet 00:00: 00:00 MOUTH [place] 00 :00 EVERY Medical MORNING Branch topiramate 2019-0 Yes Q24H daily. [facility] di XR (QUDEXY 6-28 st XR) 100 mg 09:46: Hospita capsule,spr 52 l inkle,ER 24hr benzonatate 2019-0 Yes benzonatat Method[facility] (TESSALON) 6-[address] 100 MG 09:46: capsule Hospita capsule 52 Take 1 l capsule 3 times a day by oral route. topiramate 2019-0 Yes Q24H daily. Meth[facility] di XR (QUDEXY 6-28 st XR) 100 mg 09:46: Hospita capsule,spr 52 l inkle,ER 24hr benzonatate 2019-0 Yes benzonatat [facility] (TESSALON) 6-[address] 100 MG 09:46: capsule Hospita capsule 52 Take 1 l capsule 3 times a day by oral route. levothyroxi 2019-0 Yes 1{tbl} Take 1 Me [facility] ne 4-[address] (SYNTHROID, 10:42: mouth. Hosp rafa LEVOXYL) 75 49 l mcg tablet loratadine 2019-0 Yes 10mg Take 10 mg M ethodi (CLARITIN) 4-[address] 10 mg 10:42: Hospita tablet 49 l naproxen 2019-0 Yes 2{tbl} Take 2 Metho di sodium 220 4-[address] mg capsule 10:42: mouth. Hospi ta 49 l ranitidine 2019-0 Yes 150mg Take 150 Me thodi (ZANTAC) 4-[address] 150 MG 10:42: mouth. Hospita tablet 49 l topiramate 2019-0 Yes 100mg Take 100 [facility] XR (Qudexy 4-[address] XR) 100 mg 10:42: mouth. Hospi ta capsule,spr 49 l inkle,ER 24hr acetaminoph 2019-0 Yes 2{tbl} Take 2 Me [facility] en 4-[address] (TYLENOL) 10:42: mouth. Hospit a 500 MG 49 l tablet cyanocobala 2019-0 Yes 1{appli 1 Met hodi min, 4-24 cation} applicatio st vitamin 10:42: n. Hospita B-12, 2,500 49 l mcg tablet acetaminoph 2019-0 Yes 2{tbl} Take 2 Me thodi en 4-[address] (TYLENOL) 10:42: mouth. Hospit a 500 MG 49 l tablet cyanocobala 2019-0 Yes 1{appli 1 Met hodi min, 4-24 cation} applicatio st vitamin 10:42: n. Hospita B-12, 2,500 49 l mcg tablet levothyroxi 2019-0 Yes 1{tbl} Take 1 Me thodi ne 4-[address] (SYNTHROID, 10:42: mouth. Hosp rafa LEVOXYL) 75 49 l mcg tablet loratadine 2019-0 Yes 10mg Take 10 mg M ethodi (CLARITIN) 4-[address] 10 mg 10:42: Hospita tablet 49 l naproxen 2019-0 Yes 2{tbl} Take 2 Metho di sodium 220 4-[address] mg capsule 10:42: mouth. Hospi ta 49 l ranitidine 2019-0 Yes 150mg Take 150 Me thodi (ZANTAC) 4-[address] 150 MG 10:42: mouth. Hospita tablet 49 l topiramate Yes 100mg Take 100 Me [facility]odi XR (Qudexy 4-[address] XR) 100 mg 10:42: mouth. Hospi ta capsule,spr 49 l inkle,ER 24hr azithromyci Yes [id number] 500mg Take 1 Univers n 500 mg 2-14 tablet by ity of tablet 00:00: mouth [place] 00 daily. Medical Branch azithromyci 2019- No [id number] 500mg Take 1 Univers n 500 mg 2-14 08-07 tablet by ity o f tablet 00:00: 00:00 mouth [place] 00 :00 daily. Medical Branch CYANOCOBALA 2017-09 Yes [id number] INJECT 1 Univers MIN 1,000 2-20 ML ity of mcg/mL 00:00: INTRAMUSCU [place] injection 00 LARLY ONCE Medi dragan EVERY Branch MONTH CYANOCOBALA 2017-09 Yes [id number] INJECT 1 Univers MIN 1,000 2-20 ML ity of mcg/mL 00:00: INTRAMUSCU [place] injection 00 LARLY ONCE Medi dragan EVERY Branch MONTH CYANOCOBALA 2017-09 Yes [id number] INJECT 1 Univers MIN 1,000 2-20 ML ity of mcg/mL 00:00: INTRAMUSCU [place] injection 00 LARLY ONCE Medi dragan EVERY Branch MONTH CYANOCOBALA 2017-09 Yes [id number] INJECT 1 Univers MIN 1,000 2-20 ML ity of mcg/mL 00:00: INTRAMUSCU [place] injection 00 LARLY ONCE Medi dragan EVERY Branch MONTH CYANOCOBALA 2017-09 Yes [id number] INJECT 1 Univers MIN 1,000 2-20 ML ity of mcg/mL 00:00: INTRAMUSCU [place] injection 00 LARLY ONCE Medi dragan EVERY Branch MONTH CYANOCOBALA 2017-09 Yes [id number] INJECT 1 Univers MIN 1,000 2-20 ML ity of mcg/mL 00:00: INTRAMUSCU [place] injection 00 LARLY ONCE Medi dragan EVERY Branch MONTH CYANOCOBALA 2017-09 Yes [id number] INJECT 1 Univers MIN 1,000 2-20 ML ity of mcg/mL 00:00: INTRAMUSCU [place] injection 00 LARLY ONCE Medi dragan EVERY Branch MONTH CYANOCOBALA 2017-09 Yes [id number] INJECT 1 Univers MIN 1,000 2-20 ML ity of mcg/mL 00:00: INTRAMUSCU [place] injection 00 LARLY ONCE Medi dragan EVERY Branch MONTH CYANOCOBALA 2017- Yes [id number] INJECT 1 Univers MIN 1,000 2-20 ML ity of mcg/mL 00:00: INTRAMUSCU [place] injection 00 LARLY ONCE Medi dragan EVERY Branch MONTH CYANOCOBALA 2017-09 Yes [id number] INJECT 1 Univers MIN 1,000 2-20 ML ity of mcg/mL 00:00: INTRAMUSCU [place] injection 00 LARLY ONCE Medi dragan EVERY Branch MONTH CYANOCOBALA 2017-09 Yes [id number] INJECT 1 Univers MIN 1,000 2-20 ML ity of mcg/mL 00:00: INTRAMUSCU [place] injection 00 LARLY ONCE Medi dragan EVERY Branch MONTH CYANOCOBALA 2017-09 Yes [id number] INJECT 1 Univers MIN 1,000 2-20 ML ity of mcg/mL 00:00: INTRAMUSCU [place] injection 00 LARLY ONCE Medi dragan EVERY Branch MONTH CYANOCOBALA 2017-09 Yes [id number] INJECT 1 Univers MIN 1,000 2-20 ML ity of mcg/mL 00:00: INTRAMUSCU [place] injection 00 LARLY ONCE Medi dragan EVERY Branch MONTH CYANOCOBALA 2017-09 Yes [id number] INJECT 1 Univers MIN 1,000 2-20 ML ity of mcg/mL 00:00: INTRAMUSCU [place] injection 00 LARLY ONCE Medi dragan EVERY Branch MONTH CYANOCOBALA 2017-09 Yes [id number] INJECT 1 Univers MIN 1,000 2-20 ML ity of mcg/mL 00:00: INTRAMUSCU [place] injection 00 LARLY ONCE Medi dragan EVERY Branch MONTH CYANOCOBALA 2017-09 Yes [id number] INJECT 1 Univers MIN 1,000 2-20 ML ity of mcg/mL 00:00: INTRAMUSCU [place] injection 00 LARLY ONCE Medi dragan EVERY Branch MONTH CYANOCOBALA 2017-09 Yes [id number] INJECT 1 Univers MIN 1,000 2-20 ML ity of mcg/mL 00:00: INTRAMUSCU [place] injection 00 LARLY ONCE Medi dragan EVERY Branch MONTH CYANOCOBALA 2017-09 Yes [id number] INJECT 1 Univers MIN 1,000 2-20 ML ity of mcg/mL 00:00: INTRAMUSCU [place] injection 00 LARLY ONCE Medi dragan EVERY Branch MONTH CYANOCOBALA 2017-09 Yes [id number] INJECT 1 Univers MIN 1,000 2-20 ML ity of mcg/mL 00:00: INTRAMUSCU [place] injection 00 LARLY ONCE Medi dragan EVERY Branch MONTH CYANOCOBALA 2017-09 Yes [id number] INJECT 1 Univers MIN 1,000 2-20 ML ity of mcg/mL 00:00: INTRAMUSCU [place] injection 00 LARLY ONCE Medi dragan EVERY Branch MONTH CYANOCOBALA 2017-09 Yes [id number] INJECT 1 Univers MIN 1,000 2-20 ML ity of mcg/mL 00:00: INTRAMUSCU [place] injection 00 LARLY ONCE Medi dragan EVERY Branch MONTH CYANOCOBALA 2017-09 Yes [id number] INJECT 1 Univers MIN 1,000 2-20 ML ity of mcg/mL 00:00: INTRAMUSCU [place] injection 00 LARLY ONCE Medi dragan EVERY Branch MONTH CYANOCOBALA 2017-09 Yes [id number] INJECT 1 Univers MIN 1,000 2-20 ML ity of mcg/mL 00:00: INTRAMUSCU [place] injection 00 LARLY ONCE Medi dragan EVERY Branch MONTH CYANOCOBALA 2017-09 Yes [id number] INJECT 1 Univers MIN 1,000 2-20 ML ity of mcg/mL 00:00: INTRAMUSCU [place] injection 00 LARLY ONCE Medi dragan EVERY Branch MONTH CYANOCOBALA 2017-09 Yes [id number] INJECT 1 Univers MIN 1,000 2-20 ML ity of mcg/mL 00:00: INTRAMUSCU [place] injection 00 LARLY ONCE Medi dragan EVERY Branch MONTH CYANOCOBALA 2017-09 Yes [id number] INJECT 1 Univers MIN 1,000 2-20 ML ity of mcg/mL 00:00: INTRAMUSCU [place] injection 00 LARLY ONCE Medi dragan EVERY Branch MONTH CYANOCOBALA 2017-09 2020- No [id number] INJECT 1 [facility] MIN 1,000 2-20 09-28 ML ity of mcg/mL 00:00: 00:00 INTRAMUSCU [place] injection 00 :00 LARLY ONCE Medi dragan EVERY Branch MONTH SALIVAMAX Yes RINSE 8-10 Un jamie 351 mg pwpk 5-31 TIMES ity of 00:00: DAILY. [place] 00 RECONSTITU TE EACH [place] PACKET n WITH Cancer WATER. [place] topiramate Yes 100mg Take 100 Un jamie (QUDEXY XR) 5-15 mg by ity of 100 mg CSpX 18:22: [place] 21 bedtime. Medical Branch Immunizations Ordered Filled Immunization Date Status Comments [facility] e Immunization Name Name Influenza High Dose 2020-05-25 Completed Unive rsity of [place] 00:00:00 [facility] Branch Pneumococcal 2020-05-25 Completed University o f Polysaccharide, 00:00:00 [place] Med ical PPSV23 (PNEUMOVAX) Branch Influenza High Dose 2020-05-25 Completed Unive rsity of [facility] 00:00:00 [facility] Branch Pneumococcal 2020-05-25 Completed University o f Polysaccharide, 00:00:00 [place] Med ical PPSV23 (PNEUMOVAX) Branch Influenza High Dose 2020-05-25 Completed Unive rsity of Quad 00:00:00 [facility] Branch Pneumococcal 2020-05-25 Completed University o f Polysaccharide, 00:00:00 [place] [facility] PPSV23 (PNEUMOVAX) Branch Influenza High Dose 2020-05-25 Completed Unive rsity of Quad 00:00:00 [facility] Pneumococcal 2020-05-25 Completed University o f Polysaccharide, 00:00:00 [place] [facility] PPSV23 (PNEUMOVAX) Branch Influenza High Dose 2020-05-25 Completed Unive rsity of Quad 00:00:00 [facility] Pneumococcal 2020-05-25 Completed University o f Polysaccharide, 00:00:00 [place] [facility] PPSV23 (PNEUMOVAX) Branch Influenza High Dose 2020-05-25 Completed Unive rsity of Quad 00:00:00 [facility] Pneumococcal 2020-05-25 Completed University o f Polysaccharide, 00:00:00 [place] [facility] PPSV23 (PNEUMOVAX) Branch Influenza High Dose 2020-05-25 Completed Unive rsity of Quad 00:00:00 [facility] Pneumococcal 2020-05-25 Completed University o f Polysaccharide, 00:00:00 [place] [facility] PPSV23 (PNEUMOVAX) Branch Influenza High Dose 2020-05-25 Completed Unive rsity of Quad 00:00:00 [facility] Branch Pneumococcal 2020-05-25 Completed University o f Polysaccharide, 00:00:00 [place] [facility] PPSV23 (PNEUMOVAX) Branch Influenza High Dose 2020-05-25 Completed Unive rsity of Quad 00:00:00 [facility] Pneumococcal 2020-05-25 Completed University o f Polysaccharide, 00:00:00 [place] [facility] PPSV23 (PNEUMOVAX) Branch Influenza High Dose 2020-05-25 Completed Unive rsity of Quad 00:00:00 [facility] Pneumococcal 2020-05-25 Completed University o f Polysaccharide, 00:00:00 [place] [facility] PPSV23 (PNEUMOVAX) Branch Influenza High Dose 2020-05-25 Completed Unive rsity of Quad 00:00:00 [facility] Pneumococcal 2020-05-25 Completed University o f Polysaccharide, 00:00:00 [place] [facility] PPSV23 (PNEUMOVAX) Branch Influenza High Dose 2020-05-25 Completed [facility]ive rsity of Quad 00:00:00 [facility] Pneumococcal 2020-05-25 Completed University o f Polysaccharide, 00:00:00 [place] [facility] PPSV23 (PNEUMOVAX) Branch Influenza High Dose 2020-05-25 Completed [facility]ive rsity of Quad 00:00:00 [facility] Pneumococcal 2020-05-25 Completed University o f Polysaccharide, 00:00:00 [place] [facility] PPSV23 (PNEUMOVAX) Branch Influenza High Dose 2020-05-25 Completed [facility]ive rsity of [facility] 00:00:00 [facility] Pneumococcal 2020-05-25 Completed University o f Polysaccharide, 00:00:00 [place] [facility] PPSV23 (PNEUMOVAX) Branch Influenza High Dose 2020-05-25 Completed [facility]ive rs[facility] of [facility] 00:00:00 [facility] Pneumococcal 2020-05-25 Completed University o f Polysaccharide, 00:00:00 [place] [facility] PPSV23 (PNEUMOVAX) Branch Influenza High Dose 2020-05-25 Completed [facility] rsity of Quad 00:00:00 [facility] Pneumococcal 2020-05-25 Completed University o f Polysaccharide, 00:00:00 [place] [facility] PPSV23 (PNEUMOVAX) Branch Influenza High Dose 2020-05-25 Completed [facility]ive rs[facility] of [facility] 00:00:00 [facility] Pneumococcal 2020-05-25 Completed University o f Polysaccharide, 00:00:00 [place] [facility] PPSV23 (PNEUMOVAX) Branch Influenza High Dose 2020-05-25 Completed [facility]ive rsity of Quad 00:00:00 [facility] Pneumococcal 2020-05-25 Completed University o f Polysaccharide, 00:00:00 [place] [facility] PPSV23 (PNEUMOVAX) Branch Influenza High Dose 2020-05-25 Completed [facility]ive rsity of Quad 00:00:00 [facility] Pneumococcal 2020-05-25 Completed University o f Polysaccharide, 00:00:00 [place] [facility] PPSV23 (PNEUMOVAX) Branch Influenza High Dose 2020-05-25 Completed [facility]ive rs[facility] of [facility] 00:00:00 [facility] Pneumococcal 2020-05-25 Completed University o f Polysaccharide, 00:00:00 [place] [facility] PPSV23 (PNEUMOVAX) Branch Influenza High Dose 2020-05-25 Completed [facility]ive rsity of Quad 00:00:00 [facility] Pneumococcal 2020-05-25 Completed University o f Polysaccharide, 00:00:00 [place] [facility] PPSV23 (PNEUMOVAX) Branch Influenza High Dose 2020-05-25 Completed [facility]ive rsity of Quad 00:00:00 [facility] Pneumococcal 2020-05-25 Completed University o f Polysaccharide, 00:00:00 [place] [facility] PPSV23 (PNEUMOVAX) Branch Tdap 2019-04-08 Completed University of 00:00:00 [facility] Tdap 2019-04-08 Completed University of 00:00:00 [facility] Tdap 2019-04-08 Completed University of 00:00:00 [facility] Tdap 2019-04-08 Completed University of 00:00:00 [facility] Tdap 2019-04-08 Completed University of 00:00:00 [facility] Tdap 2019-04-08 Completed University of 00:00:00 [facility] Tdap 2019-04-08 Completed University of 00:00:00 [facility] Tdap 2019-04-08 Completed University of 00:00:00 [facility] Tdap 2019-04-08 Completed University of 00:00:00 [facility] Tdap 2019-04-08 Completed University of 00:00:00 [facility] Tdap 2019-04-08 Completed University of 00:00:00 [facility] Tdap 2019-04-08 Completed University of 00:00:00 [facility] Tdap 2019-04-08 Completed University of 00:00:00 [facility] Tdap 2019-04-08 Completed University of 00:00:00 [facility] Tdap 2019-04-08 Completed University of 00:00:00 [facility] Tdap 2019-04-08 Completed University of 00:00:00 [facility] Tdap 2019-04-08 Completed University of 00:00:00 [facility] TDAP 2019-04-08 Completed University of 00:00:00 [place] [facility] TDAP 2019-04-08 Completed University of 00:00:00 [facility] TDAP 2019-04-08 Completed University of 00:00:00 [facility] TDAP 2019-04-08 Completed University of 00:00:00 [facility] TDAP 2019-04-08 Completed University of 00:00:00 [facility] TDAP 2019-04-08 Completed University of 00:00:00 [facility] TDAP 2019-04-08 Completed University of 00:00:00 [facility] TDAP 2019-04-08 Completed University of 00:00:00 [facility] TDAP 2019-04-08 Completed University of 00:00:00 [facility] TDAP 2019-04-08 Completed University of 00:00:00 [facility] TDAP 2019-04-08 Completed University of 00:00:00 [facility] TDAP 2019-04-08 Completed University of 00:00:00 [facility] TDAP 2019-04-08 Completed University of 00:00:00 [facility] TDAP 2019-04-08 Completed University of 00:00:00 [facility] TDAP 2019-04-08 Completed University of 00:00:00 [facility] TDAP 2019-04-08 Completed University of 00:00:00 [facility] TDAP 2019-04-08 Completed University of 00:00:00 [facility] TDAP 2019-04-08 Completed University of 00:00:00 [facility] TDAP 2019-04-08 Completed University of 00:00:00 [facility] TDAP 2019-04-08 Completed University of 00:00:00 [facility] TDAP 2019-04-08 Completed University of 00:00:00 [facility] TDAP 2019-04-08 Completed University of 00:00:00 [place] [facility] TDAP 2019-04-08 Completed University of 00:00:00 [facility] TDAP 2019-04-08 Completed University of 00:00:00 [facility] TDAP 2019-04-08 Completed University of 00:00:00 [facility] Tdap 2019-04-08 Completed University of 00:00:00 [facility] Tdap 2019-04-08 Completed University of 00:00:00 [facility] Vital Signs Vital Name Observation Time Observation Value Comments Source Systolic blood 2020-12-30 21:33:00 107 mm[Hg] Univer sity of pressure [place] [facility] Diastolic blood 2020-12-30 21:33:00 74 mm[Hg] Unive rsity of pressure [facility] Heart rate 2020-12-30 21:33:00 69 /min Universi ty [facility] [place] [facility] Body temperature 2020-12-30 21:33:00 37 Yane Univ ersity of [place] [facility] Body weight 2020-12-30 21:33:00 83.915 kg [facility]i [facility] [place] [facility] BMI 2020-12-30 21:33:00 28.98 kg/m2 [facility] [place] [facility] Oxygen saturation in 2020-12-30 21:33:00 98 /min University of Arterial blood by [place] [employer] dragan Pulse oximetry Branch Systolic blood 2020-12-06 16:38:00 111 mm[Hg] Univer sity of pressure [facility] Diastolic blood 2020-12-06 16:38:00 78 mm[Hg] Unive rsity of pressure [facility] Heart rate 2020-12-06 16:38:00 72 /min [facility] [place] [facility] Body temperature 2020-12-06 16:38:00 36.83 Yane [facility] ersity of [place] [facility] Respiratory rate 2020-12-06 16:38:00 18 /min Univ ersity of [place] [facility] Body height 2020-12-06 16:38:00 170.2 cm [facility] [place] [facility] Body weight 2020-12-06 16:38:00 89.812 kg [facility] [place] [facility] BMI 2020-12-06 16:38:00 31.01 kg/m2 [facility] [place] [facility] Oxygen saturation in 2020-12-06 16:38:00 95 /min University of Arterial blood by [place] [employer] dragan Pulse oximetry Branch Systolic blood 2020-11-14 22:02:00 128 mm[Hg] Univer sity of pressure [place] [facility] Diastolic blood 2020-11-14 22:02:00 74 mm[Hg] Unive rsity of pressure [facility] Heart rate 2020-11-14 22:02:00 77 /min [facility] [place] [facility] Body temperature 2020-11-14 22:02:00 37 Yane Univ ersity of [place] [facility] Respiratory rate 2020-11-14 22:02:00 18 /min Univ ersity of [place] [facility] Body height 2020-11-14 22:02:00 167.6 cm [facility] [place] [facility] Body weight 2020-11-14 22:02:00 87.091 kg [facility] [place] [facility] BMI 2020-11-14 22:02:00 30.99 kg/m2 [facility] [place] [facility] Oxygen saturation in 2020-11-14 22:02:00 98 /min University of Arterial blood by [place] [employer] dragan Pulse oximetry Branch Systolic blood 2020-05-25 15:04:00 131 mm[Hg] Univer sity of pressure [place] [facility] Diastolic blood 2020-05-25 15:04:00 83 mm[Hg] Unive rsity of pressure [facility] Heart rate 2020-05-25 15:04:00 63 /min [facility] [place] [facility] Body temperature 2020-05-25 15:04:00 37 Yane Univ ersity of [place] [facility] Body height 2020-05-25 15:04:00 172.7 cm [facility] [place] [facility] Body weight 2020-05-25 15:04:00 92.987 kg [facility] [place] [facility] BMI 2020-05-25 15:04:00 31.17 kg/m2 [facility] [place] [facility] Systolic blood 2019-09-28 18:10:00 106 mm[Hg] Univer sity of pressure [place] [facility] Diastolic blood 2019-09-28 18:10:00 75 mm[Hg] Unive rsity of pressure [facility] Heart rate 2019-09-28 18:10:00 70 /min [facility] [place] [facility] Body weight 2019-09-28 18:10:00 87.998 kg [facility] [place] [facility] BMI 2019-09-28 18:10:00 29.50 kg/m2 [facility] [place] [facility] Oxygen saturation in 2019-09-28 18:10:00 94 /min University of Arterial blood by [place] [facility] dragan Pulse oximetry Branch Systolic blood 2019-04-08 20:46:00 100 mm[Hg] Univer sity of pressure [facility] Diastolic blood 2019-04-08 20:46:00 63 mm[Hg] [facility] Heart rate 2019-04-08 20:46:00 64 /min [facility] Body temperature 2019-04-08 20:46:00 36.94 Yane [facility] Respiratory rate 2019-04-08 20:46:00 16 /min [facility] Body height 2019-04-08 20:46:00 172.7 cm [facility] Body weight 2019-04-08 20:46:00 89.812 kg [facility] BMI 2019-04-08 20:46:00 30.11 kg/m2 [facility] Procedures Procedure Date / Time Performing Clinician Source Performed AUTHORIZATION FOR RELEASE 2021-10-23 06:01:00 Doctor Unasharad, [facility] [place] [facility] HCV ANTIBODY 2020-05-25 15:35:00 Ambar Weathers [place] [facility] [place] PNEUMOCOCCAL VACCINE, 2020-05-25 15:18:17 Ambar Weathers [facility] 23-VALENT (PNEUMOVAX) [facility] anch FLU VACC(),65+ 2020-05-25 15:18:17 Ambar Weathers [facility] YRS,IM,HIGH DOSE QUAD [facility] XR FOOT 3+ VW RIGHT 2019-09-28 19:02:17 Eneida Gonzalez [facility] ASSIGNMENT OF BENEFITS 2019-09-28 18:42:37 Doctor Unasharad, [facility] Name [facility] TDAP VACCINE, >11 YRS, IM 2019-04-08 20:59:30 Ambar Weathers [facility] NO SHOW OR MISSED 2019-04-08 20:34:09 Doctor Unasharad, [facility] APPOINTMENT POLICY [place] [facility] h ACKNOWLEDGEMENT Plan of Care Planned Activity Planned Date Details Comments Source Future Scheduled 2022-08-04 HEPATITIS B VACCINES [facility] Test 23:58:34 (1 of 3 - 3-dose series) [code = HEPATITIS B VACCINES (1 of 3 - 3-dose series)] Future Scheduled 2022-08-04 COVID-19 [facility]ACCINE (#[facility] 23:58:34 [code = COVID-19 VACCINE (#1)] Future Scheduled 2022-08-04 BREAST CANCER [facility] Test 23:58:34 SCREENING [code = BREAST CANCER SCREENING] Future Scheduled 2022-08-04 COLONOSCOPY SCREENING [facility] Test 23:58:34 [code = COLONOSCOPY SCREENING] Future Scheduled 2022-08-04 SHINGLES VACCINES ([address] [facility] Hospital Test 23:58:34 of 2) [code = SHINGLES VACCINES (1 of 2)] Future Scheduled 2022-08-04 65+ [facility]CCAL [facility] Test 23:58:34 VACCINE (1 - PCV) [code = 65+ PNEUMOCOCCAL VACCINE (1 - PCV)] Future Scheduled 2022-08-04 INFLUENZA VACCINE [facility] Test 23:58:34 [code = INFLUENZA VACCINE] Future Scheduled 2022-03-07 [facility]19 [facility] 04:03[facility]15 (#1) [code = COVID-19 [facility] Vaccination (#1)] Center Future Scheduled 2021-08-23 COVID-19 VACCINE (1) Met [facility] Hospital Test 18:18:42 [code = COVID-19 VACCINE (1)] Future Scheduled 2021-08-23 Hepatitis C screening [facility] Test 18:18:42 (procedure) [code = [id number]] Future Scheduled 2021-08-23 BREAST CANCER [facility] Test 18:18:42 SCREENING [code = BREAST CANCER SCREENING] Future Scheduled 2021-08-23 COLONOSCOPY SCREENING [facility] Test 18:18:42 [code = COLONOSCOPY SCREENING] Future Scheduled 2021-08-23 SHINGLES VACCINES [facility] Test 18:18:42 (#1) [code = SHINGLES VACCINES (#1)] Future Scheduled 2021-08-23 65+ [facility]OCOCCAL [facility] Test 18:18:42 VACCINE (1 of 1 - PPSV23) [code = 65+ PNEUMOCOCCAL VACCINE (1 of 1 - PPSV23)] Future Scheduled 2021-08-23 INFLUENZA VACCINE [facility] Test 18:18:42 [code = INFLUENZA VACCINE] Encounters Start End Encounter Admission Attending Care Care Encounter Source Date/Time Date/Time Type Type Clinicians Facility Department ID 2022-07-10 Outpatient [facility] [id number] [place] 13:02:45 [id number] Health 2022-06-13 Outpatient [facility] [id number] [place] 13:31:59 [id number] Health 2021-11-15 Outpatient PEÑALOZA, LUPE [facility] [id number] [place] 12:31:00 Health 2022-07-10 2022-07-10 [id number] [place] 11:00:00 13:01:50 Health 2022-06-22 2022-06-22 Office Peñaloza, Lupe JENNY RIBEIRO 1.2.840.114 [id number] [place] 10:45:00 11:15:50 Visit TOWER [id number] He alth 9.2.7.2.686 [id number] 3 2022-03-21 2022-03-21 Office Peñaloza, Lupe JENNY RIBEIRO 1.2.840.114 [id number] [place] 10:45:00 11:17:44 Visit [facility]OWER [id number] He alth 9.2.7.2.686 [id number] 3 2022-03-19 2022-03-19 Telephone PenaChloé bautista JENNY RIBEIRO 1.2.840.114 [id number] [place] 00:00:00 00:00:00 PenaDebbi bautistah [facility] [id number] Health 9.2.7.2.686 [id number] 3 2022-02-02 2022-02-02 Office Peñaloza, Lupe JENNY RIBEIRO 1.2.840.114 [id number] [place] 10:45:00 11:10:16 Visit TOWER [id number] He alth 9.2.7.2.686 [id number] 3 2022-01-05 2022-01-05 Office [facility]aloza, [facility]ENNY [facility]IBE[facility] 1.2.840.114 [id number] [place] 10:30:00 12:15:36 Visit TOWER 350.1.13.58 He alth 9.2.7.2.686 [id number] 3 2021-12-12 2021-12-12 Outpatient PEÑALOZA, [facility] [id number] [facility] 09:45:00 23:59:00 2021-12-04 2021-12-04 Office PeñalozaLupe JENNY RIBEIRO 1.2.840.114 [id number] [place] 15:00:00 16:13:55 Visit TOWER 350.1.13.58 He alth 9.2.7.2.686 [id number] 3 2021-11-15 2021-11-15 Office Lupe Peñaloza 1.2.840.114 [id number] [place] 11:30:00 12:22:32 Visit TOWER 350.1.13.58 He alth 9.2.7.2.686 [id number] 3 2021-11-09 2021-11-09 Telephone PenaDebbih JENNY RIBEIRO 1.2.840.114 [id number] [place] 00:00:00 00:00:00 PenaDebbi bautistah [facility] [id number] Health 9.2.7.2.686 [id number] 3 2021-11-07 2021-11-07 Office Lupe Peñaloza JENNY RIBEIRO 1.2.840.114 [id number] [place] 10:00:00 11:57:35 Visit TOWER 350.1.13.58 He alth 9.2.7.2.686 [id number] 3 2021-10-23 2021-10-23 Orders Doctor BANG 1.2.840.114 [id number] Univers 00:00:00 00:00:00 Only Unassigned, ROGELIO 350.1.13.10 ity of [place] [facility] 4.2.7.2.686 Bumlaro as [phone] [address] 2021-10-22 2021-10-22 [facility] [place] 1.2.840.114 [id number] Univers 00:00:00 00:00:00 [facility] [id number] it y of [place] 4.2.7.2.686 Bulmaro as TONY [phone] [facility] [address] [place] OFFICE [facility] ONE 2021-09-18 2021-09-18 [facility] 1.2.840.114 [id number] Univers 00:00:00 00:00:00 Ambar HEALTH 350.1.13.10 it y of Edward [place] 4.2.7.2.686 Bulmaro as PROFESSIO [phone] [address] OFFICE [facility] ONE 2021-06-18 2021-06-18 [facility] 1.2.840.114 [id number] Univers 00:00:00 00:00:00 [facility] [id number] it y of [place] 4.2.7.2.686 Bulmaro as Professio [phone] [address] Office [facility] One 2021-03-19 2021-03-19 [facility] 1.2.840.114 [id number] Univers 00:00:00 00:00:00 [facility] [id number] it y of [place] 4.2.7.2.686 Bulmaro as Professio [phone] [address] One 2020-12-30 2020-12-30 Office Carlos [facility] 1.2.840.114 [id number] Univers 16:18:21 16:55:22 Visit [facility] [id number] it y of [place] 4.2.7.2.686 Bulmaro as Professio [phone] [address] One 2020-12-30 2020-12-30 Outpatient R CARLOS [facility] [id number] Univers 16:20:00 16:20:00 ENEIDA ity of [facility] 2020-12-23 2020-12-[address] [facility] 1.2.840.114 [id number] Univers 00:00:00 00:00:00 [facility] [id number] it y of [place] 4.2.7.2.686 Bulmaro as Professio [phone] [address] Office [facility] One 2020-12-06 2020-12-06 Urgent Provider, [facility] Urgent Care [facility] 1.2.840.114 [id number] Univers 11:20:24 11:40:24 [facility] 350.1.13.10 ity of [place] 4.2.7.2.686 Bulmaro as Professio [phone] [address] Office Building One 2020-12-06 2020-12-06 Outpatient R CARLOS, [facility] [id number] Univers 11:20:00 11:20:00 ENEIDA ity of [facility] 2020-11-22 2020-11-22 Patient Luciano [facility] 1.2.840.114 [id number] Univers 00:00:00 00:00:00 Outreach [facility] 350.1.13.10 i ty of [facility] 4.2.7.2.686 [place] [phone] [address] 2020-11-14 2020-11-14 Urgent Provider, Erik [facility] 1.2.840.114 [id number] Univers 16:54:28 17:47:16 Care Angie Garcia 350.1.13.10 ity of [place] 4.2.7.2.686 Bulmaro as Profbuckyio [phone] [address] One 2020-11-14 2020-11-14 Outpatient R [facility] [id number] Univers 17:00:00 17:00:00 ity of [facility] 2020-11-14 2020-11-14 Letter Doctor BANG 1.2.840.114 [id number] Univers 00:00:00 00:00:00 (Out) Unassigned, ROGELIO 350.1.13.10 ity of [place] [facility] 4.2.7.2.686 Bulmaro as [phone] [address] 2020-11-14 2020-11-14 Letter Doctor BANG 1.2.840.114 [id number] Univers 00:00:00 00:00:00 (Out) Unassigned, ROGELIO 350.1.13.10 ity of [place] [facility]OSPITAL 4.2.7.2.686 Bulmaro as [phone] [address] 2020-09-19 2020-09-19 Indu Weathers [facility] 1.2.840.114 [id number] Univers 00:00:00 00:00:00 [facility] 350.1.13.10 it y of [place] 4.2.7.2.686 Bulmaro as Professio [phone] In aleksandra Ramachandran [place] Office Building One 2020-08-24 2020-08-24 [facility] [place] 1.2.840.114 [id number] Univers 00:00:00 00:00:00 [facility] 350.1.13.10 it y of [place] 4.2.7.2.686 Bulmaro as Professio [phone] In aleksandra Ramachandran [facility] One 2020-07-28 2020-07-28 [facility] [place] 1.2.840.114 [id number] Univers 00:00:00 00:00:00 [facility] Health 350.1.13.10 it y of [place] 4.2.7.2.686 Bulmaro as Professio [phone] In aleksandra Ramachandran [facility] One 2020-06-28 2020-06-28 [facility] 1.2.840.114 [id number] Univers 00:00:00 00:00:00 [facility] [id number] it y of [place] 4.2.7.2.686 Bulmaro as Professio [phone] In aleksandra Ramachandran [facility] One 2020-06-01 2020-06-01 [facility] NerissaVA [facility] 1.2.840.114 [id number] Univers 00:00:00 00:00:00 [facility] 350.1.13.10 it y of [place] 4.2.7.2.686 Bulmaro as Professio [phone] In aleksandra nal [address] [place] [address] One 2020-05-30 2020-05-30 [facility] 1.2.840.114 [id number] Univers 00:00:00 00:00:00 [facility] 350.1.13.10 it y of [place] 4.2.7.2.686 Bulmaro as Professio [phone] In aleksandra nal Duarte [place] Office [facility] One 2020-05-25 2020-05-25 [employer] Team Member Lab, Adc Fam Pob I [facility] 1.. 840.114 [id number] Univers 10:25:30 10:35:55 Visit Ambar Weathers [facility] 350.1.13 .10 ity of [place] 4.2.7.2.686 Bulmaro as Professio [phone] [address] Office Building One 2020-05-25 2020-05-[address] [facility] 1.2.840.114 [id number] Univers 09:51:34 10:35:44 Visit Ambar [facility] 350.1.13.10 it y of [place] 4.2.7.2.686 Bulmaro as Professio [phone] [address] Office Building One 2020-05-25 2020-05-25 [facility] [id number] Univers 10:00:00 10:00:00 AMBAR iteric of [facility] 2020-04-02 2020-04-02 [facility] 1.2.840.114 [id number] Univers 00:00:00 00:00:00 [facility] 350.1.13.10 it y of [place] 4.2.7.2.686 Bulmaro as Professio [phone] [address] One 2020-03-02 2020-03-[address] [facility] 1.2.840.114 [id number] Univers 00:00:00 00:00:00 [facility] [id number] it y of [place] 4.2.7.2.686 Bulmaro as Professio [phone] [address] Office [facility] One 2020-02-19 2020-02-[address] [facility] 1.2.840.114 [id number] Univers 00:00:00 00:00:00 [facility] 350.1.13.10 it y of [place] 4.2.7.2.686 Bulmaro as Professio [phone] [address] Office [facility] One 2020-01-04 2020-01-04 [facility] 1.2.840.114 [id number] Univers 00:00:00 00:00:00 [facility] [id number] it y of [place] 4.2.7.2.686 Bulmaro as Professio [phone] In dichi nal [address] [place] [address] Office [facility] 2020-01-02 2020-01-[address] [facility] 1.2.840.114 [id number] Univers 00:00:00 00:00:00 [facility] 350.1.13.10 it y of [place] 4.2.7.2.686 Bulmaro as Professio [phone] [facility] nal [address] [place] [address] Office [facility] 2019-12-29 2019-12-[address] [facility] 1.2.840.114 [id number] Univers 00:00:00 00:00:00 (Out) Ambar Veengas [id number] i ty [id number] [phone] In dical nal [address] [place] [address] 2019-12-28 2019-12-[address] [facility] 1.840.114 [id number] Univers 00:00:00 00:00:00 [facility] [id number] it y of [place] [id number] [place] Professio [phone] [address] 2019-12-23 2019-12-23 Outpatient R [facility] [id number] Univers 10:45:00 10:45:00 AMBAR ity of [facility] 2019-12-23 2019-12-[address] [facility] 1.2.840.114 [id number] Univers 09:40:04 09:55:04 ne Visit Ambar Venegas [id number] ity [id number] Profess[place] [phone] In dic[address] 2019-12-23 2019-12-23 Telephone [facility] 1.2.840.114 [id number] Univers 00:00:00 00:00:00 [facility] [id number] ity of [place] [id number] [place] Professio [phone] In dical nal [address] [place] [address] Office Building One 2019-10-28 2019-10-28 [facility] 1.2.840.114 [id number] Univers 00:00:00 00:00:00 [facility] [id number] it y of [place] [id number] [place] Professio [phone] In aleksandra [address] Office [facility] 2019-10-27 2019-10-27 [facility] 1.2.840.114 [id number] Univers 00:00:00 00:00:00 [facility] [id number] it y of [place] [id number] [place] Professio [phone] In jake[address] Office [facility] 2019-10-05 2019-10-05 [facility] 1.2.840.114 [id number] Univers 00:00:00 00:00:00 [facility] [id number] it y of [place] [id number] [place] Professio [phone] In aleksandra [address] Office [facility] 2019-09-30 2019-09-30 [facility] 1.2.840.114 [id number] Univers 00:00:00 00:00:00 [facility] [id number] it y of [place] [id number] [place] Professio [phone] In jake[address] Office [facility] 2019-09-30 2019-09-30 [facility] 1.2.840.114 [id number] Univers 00:00:00 00:00:00 [facility] [id number] it y of [place] [id number] [place] Professio [phone] In dichi nal [address] [place] [address] Office [facility] 2019-09-28 2019-09-29 Office [facility] 1.2.840.114 [id number] Univers 12:00:20 08:24:21 Visit [facility] [id number] it y of [place] [id number] [place] Professio [phone] [facility] [address] Building One 2019-09-28 2019-09-28 [facility] 1.2.840.114 [id number] Univers 12:44:00 23:59:00 Encounter Eneida Venegas [id number] ity of [id number] [phone] [facility] [address] [place] 2019-09-28 2019-09-28 Orders Doctor BANG 1.2.840.114 [id number] Univers 00:00:00 00:00:00 Only Unassigned, ROGELIO [id number] ity of [place] [facility] [id number] [place] [phone] [facility] [address] 2019-09-28 2019-09-28 [facility] 1.2.840.114 [id number] Univers 00:00:00 00:00:00 (Out) Eneida Seaman [id number] it y of [place] [id number] [place] Professio [phone] [address] Office [facility] 2019-05-02 2019-05-[address] [facility] 1.2.840.114 [id number] Univers 00:00:00 00:00:00 [facility] [id number] it y of [place] [id number] [place] Professio [phone] [address] Office [facility] 2019-04-08 2019-04-08 [facility] 1.2.840.114 [id number] [facility] 15:35:25 16:05:04 Visit Ambar Seaman [id number] it y of [place] [id number] [place] Professio [phone] [address] Office [facility] 2019-04-08 2019-04-08 Orders Doctor CUENCA 1.2.840.114 [id number] Univers 00:00:00 00:00:00 Only Unassigned, ROGELIO [id number] ity of [place] [facility] [id number] [place] [phone] [place] [address] [address] Results Test Description Test Time Test Comments Results Result Comments Source HCV ANTIBODY 2020-05-25 22:03:00 Test Item Value Reference Range Interpretation Comme nts HCV Ab (test code = 72132-5) Negative HCV Semi-Quantitative (test code = 62543-2) [facility] [id number] 19:07:391. There is a subtle lucency at the base of the proximal phalanx of thegreat toe seen only on one view which could represent a small hairlinefracture2. Changes of degenerative joint disease as described above3. Plantar calcaneal spur EXAM: Right foot 3 views HISTORY: ?injury to right foot related to fall, with moderate swelling,erythema and pain on the great toe TECHNIQUE:AP, lateral, oblique view ofthe right foot is obtained. FINDINGS: A very subtle lucency is seen at the base of the proximal phalanx of thegreat toe along its tibial side seen on the oblique view. Moderatedegenerative changes are seen in the MTP joint of the great toe. Old healed fractures are seen involving the distal fourth and fifthmetatarsals. Degenerative changes are seen in the calcaneocuboid joint. Aplantar calcaneal spuris noted. Also seen is pes planus deformity. [facility], Radiant Results Inft User - 09/28/2019 1:08 PM CSTEXAM: Right foot 3 viewsHISTORY: injury to right foot related to fall, with moderate swelling,erythema and pain on the great toeTECHNIQUE:AP, lateral, oblique view of the right foot is obtained.FINDINGS:A very subtle lucency is seen at the base of the proximal phalanx of thegreat toe along its tibial side seen on the oblique view. Moderatedegenerative changes are seen in the MTP joint of the great toe.Old healed fractures are seen involving the distal fourth and fifthmetatarsals. Degenerative changes are seen in the calcaneocuboid joint. Aplantar calcaneal spur is noted. Also seen is pes planus deformity.IMPRESSION1. There is a subtle lucency at the base of the proximal phalanx of thegreat toe seen only on one view which could represent a small hairlinefracture2. Changes of degenerative joint disease as described above3. Plantar calcaneal spur [facility]
[2022-08-05 00:31] LABS: Absolute Lymphocytes (CBC) 1.7 K/uL (0.7-4.9); Hematocrit 37.6 % (36.0-45.0); Lymphocytes % 31.7 % (15.3-44.8); MCV 91.5 fL (80-100); MPV 7.8 fL (7.6-11.3); RBC Red Blood Cell Count 4.11 M/uL (3.86-4.86)
[2022-08-05 00:45] LABS: Potassium 3.8 mmol/L (3.5-5.1)
--- NOTE | 2022-08-05 03:21 | ER ---
Nurse's Notes [facility] Name: Yvonne Szymanski Age: 66 yrs Sex: Female : 1955 Arrival Date: 08/05/2022 Time: 00:01 Bed 5 Private MD: Diagnosis: Contusion of unspecified part of head;Fall on same level, unspecified;Abrasion of right elbow Presentation: 08/05 00:03 Chief complaint: EMS states: Toned out for fall, pt states legs felt like they were ll3 cramping prior to falling, pt denies and LOC, hematoma to left forehead and a small laceration to right elbow noted, pt pain to head 10. Coronavirus screen: Vaccine status: Patient reports being unvaccinated. At this time, the client does not indicate any symptoms associated with coronavirus-19. Ebola Screen: No symptoms or risks identified at this time. Initial Sepsis Screen: Does the patient meet any 2 criteria? No. Patient's initial sepsis screen is negative. Does the patient have a suspected source of infection? No. Patient's initial sepsis screen is negative. Risk Assessment: Do you want to hurt yourself or someone else? Patient reports no desire to harm self or others. Onset of symptoms was August 05, 2022. Mechanism of Injury: Fall States hit forehead on toilet. 00:03 Method Of Arrival: EMS: [facility] [place] [place] [facility] ll3 00:03 Acuity: STEPHAN 3 ll3 Triage Assessment: 00:13 General: Appears in no apparent distress. uncomfortable, Behavior is calm, cooperative. ll3 Pain: Complains of pain in forehead Pain does not radiate. Pain currently is 6 out of 10 on a pain scale. Is continuous. Neuro: Level of Consciousness is awake, alert, obeys commands, Oriented to person, place, time, situation, Reports headache. Cardiovascular: Patient's skin is warm and dry. Derm: Wound noted right elbow Bruising that is dark purple, on forehead. Musculoskeletal: Reports weakness in right leg and left leg. Historical: - Allergies: 00:13 Adhesives; ll3 - PMHx: 00:13 PROLAPSED RECTUM; Hypothyroidism; acid reflux; ll3 - PSHx: 00:13 R. Ear Canal CA; R. ACL Repair; hernia repair; Cataract and Lasik SX; ll3 - Immunization history:: Client reports having NOT received the Covid vaccine. - Social history:: Smoking status: Patient/guardian denies using tobacco. Screenin:28 Abuse screen: Denies threats or abuse. Denies injuries from another. Nutritional ll3 screening: No deficits noted. Tuberculosis screening: No symptoms or risk factors identified. Fall Risk Fall in past 12 months (25 points). No secondary diagnosis (0 pts). No IV (0 pts). Ambulatory Aid- None/Bed Rest/Nurse Assist (0 pts). Gait- Normal/Bed Rest/Wheelchair (0 pts) Mental Status- Oriented to own ability (0 pts). Total Park Fall Scale indicates Low Risk Score (25-44 pts). Fall prevention measures have been instituted. Side Rails Up X 2 Placed close to Nursing Station Family Present and informed to notify staff if they need to leave bedside As available Patient and Family Educated on Fall Prevention Program and strategies. Assessment: 00:15 General: See triage assessment\E\. ll3 01:30 Reassessment: No changes from previously documented assessment. Patient and/or family ll3 updated on plan of care and expected duration. Pain level reassessed. Patient is alert, oriented x 3, equal unlabored respirations, skin warm/dry/pink. 03:14 Reassessment: No changes from previously documented assessment. Patient and/or family ll3 updated on plan of care and expected duration. Pain level reassessed. Patient is alert, oriented x 3, equal unlabored respirations, skin warm/dry/pink. Vital Signs: 00:03 BP 133 / 82; Pulse 77; Resp 18; Temp 97.7(A); Pulse Ox 100% on R/A; Weight 102.06 kg ll3 (R); Height 5 ft. 8 in. (172.72 cm) (R); 01:48 BP 131 / 80; Pulse 72; Resp 17; Pulse Ox 97% on R/A; ll3 03:14 BP 130 / 72; Pulse 72; Resp 16; Pulse Ox 100% on R/A; ll3 00:03 Body Mass Index 34.21 (102.06 kg, 172.72 cm) ll3 ED Course: 00:01 Patient arrived in ED. sb4 00:02 Vivek Eugene DO is Attending Physician. ms3 00:13 Triage completed. ll3 00:13 Arm band placed on Patient placed in an exam room, on a stretcher, on pulse oximetry. ll3 01:52 CT Head C Spine In Process Unspecified. EDMS 03:28 Patient has correct armband on for positive identification. Placed in gown. Bed in low ll3 position. Call light in reach. Side rails up X 1. Adult w/ patient. 03:28 No provider procedures requiring assistance completed. Patient did not have IV access ll3 during this emergency room visit. Administered Medications: No medications were administered Medication: 03:29 VIS not applicable for this client. ll3 Outcome: 03:20 Discharge ordered by MD. ms3 03:28 Discharged to home ambulatory, with significant other. ll3 03:28 Condition: stable 03:28 Discharge instructions given to patient, significant other, Instructed on discharge instructions, follow up and referral plans. Demonstrated understanding of instructions, follow-up care. 03:29 Patient left the ED. ll3 Signatures: Dispatcher [employer] EDIA Vivek Eugene DO DO ms3 Agusto Heredia, RN RN ll3 Farzana Love, PA-C PA-C sb4
--- NOTE | 2022-08-05 03:21 | EDPHYS ---
Physician Documentation [facility] Name: Yvonne Szymanski Age: 66 yrs Sex: Female : 1955 Arrival Date: 08/05/2022 Time: 00:01 Bed 5 Private MD: ED Physician Vivek Eugene HPI: 08/05 00:06 This 66 yrs old Female presents to ER via Unassigned with complaints of fall while ms3 getting off the toilet. 00:06 Details of fall: The patient fell from seated position, toilet. Onset: The ms3 symptoms/episode began/occurred just prior to arrival. Associated injuries: The patient sustained injury to the head, contusion, right arm, abrasion. Severity of symptoms: At their worst the symptoms were moderate, in the emergency department the symptoms are unchanged. patient states her legs were cramping and she went to stand up from the toilet and fell.. Historical: - Allergies: 00:13 Adhesives; ll3 - PMHx: 00:13 PROLAPSED RECTUM; Hypothyroidism; acid reflux; ll3 - PSHx: 00:13 R. Ear Canal CA; R. ACL Repair; hernia repair; Cataract and Lasik SX; ll3 - Immunization history:: Client reports having NOT received the Covid vaccine. - Social history:: Smoking status: Patient/guardian denies using tobacco. ROS: 00:06 Constitutional: Negative for fever, and chills. ENT: Negative for injury, pain, and ms3 discharge, Neck: Negative for injury, pain, and swelling, Cardiovascular: Negative for chest pain, and palpitations. Respiratory: Negative for shortness of breath, cough, wheezing, and pleuritic chest pain, Abdomen/GI: Negative for abdominal pain, nausea, vomiting, diarrhea, and constipation. 00:06 Skin: Positive for abrasion(s). 00:06 Neuro: Positive for headache. 00:06 All other systems are negative. Exam: 00:06 Constitutional: This is a well developed, well nourished patient who is awake, alert, ms3 and in no acute distress. 00:06 Eyes: Pupils equal round and reactive to light, extra-ocular motions intact. Lids and lashes normal. Conjunctiva and sclera are non-icteric and not injected. Periorbital areas with no swelling, redness, or edema. Neck: Trachea midline, no cervical lymphadenopathy. Supple, full range of motion without nuchal rigidity, or vertebral point tenderness. No Meningismus. Chest/axilla: Normal chest wall appearance and motion. Nontender with no deformity. Cardiovascular: Regular rate and rhythm with a normal S1 and S2. No gallops, murmurs, or rubs. Normal PMI, no JVD. No pulse deficits. Respiratory: Lungs have equal breath sounds bilaterally, clear to auscultation and percussion. No rales, rhonchi or wheezes noted. No increased work of breathing, no retractions or nasal flaring. Abdomen/GI: Soft, non-tender, with normal bowel sounds. No distension or tympany. No guarding or rebound. No evidence of tenderness throughout. 00:06 Head/face: Noted is contusion, that is superficial, of the forehead. 00:06 Skin: injury, abrasion(s), moderate sized abrasion noted, of the right arm. Vital Signs: 00:03 BP 133 / 82; Pulse 77; Resp 18; Temp 97.7(A); Pulse Ox 100% on R/A; Weight 102.06 kg ll3 (R); Height 5 ft. 8 in. (172.72 cm) (R); 01:48 BP 131 / 80; Pulse 72; Resp 17; Pulse Ox 97% on R/A; ll3 03:14 BP 130 / 72; Pulse 72; Resp 16; Pulse Ox 100% on R/A; ll3 00:03 Body Mass Index 34.21 (102.06 kg, 172.72 cm) ll3 MDM: 00:02 Patient medically screened. ms3 00:06 Differential diagnosis: abrasion, closed head injury, contusion. ms3 03:21 Data reviewed: vital signs, nurses notes, lab test result(s), radiologic studies, CT ms3 scan, and as a result, I will discharge patient. Counseling: I had a detailed discussion with the patient and/or guardian regarding: the historical points, exam findings, and any diagnostic results supporting the discharge/admit diagnosis, lab results, radiology results, the need for outpatient follow up, to return to the emergency department if symptoms worsen or persist or if there are any questions or concerns that arise at home. 03:21 ED course: Discussed labs and imaging with patient. Patient to follow-up with her ms3 primary care physician in 2 to 3 days. Patient presents agrees with plan. All questions were answered. Return precautions discussed include worsening symptoms, or any other concerns. On reevaluation patient is alert and orient x4, no apparent distress, nontoxic-appearing. Patient states her tetanus vaccine is up-to-date.. 08/05 00:02 Order name: Basic Metabolic Panel; Complete Time: 01:10 ms3 08/05 00:02 Order name: CBC with Diff; Complete Time: 01:10 ms3 08/05 00:02 Order name: CT Head C Spine ms3 08/05 00:02 Order name: Labs collected and sent; Complete Time: 00:20 ms3 Administered Medications: No medications were administered Disposition Summary: 08/05/22 03:20 Discharge Ordered Location: Home ms3 Condition: Stable ms3 Diagnosis - Contusion of unspecified part of head ms3 - Fall on same level, unspecified ms3 - Abrasion of right elbow ms3 Followup: ms3 - With: Private Physician - When: 2 - 3 days - Reason: Recheck today's complaints Discharge Instructions: - Discharge Summary Sheet ms3 - Contusion, [id number] ms3 - Abrasion, Cavy-tn-[id number] ms3 Forms: - Medication Reconciliation Form ms3 - Thank You Letter ms3 - Antibiotic Education ms3 - Prescription Opioid Use ms3 Signatures: Dispatcher [employer] EDMS Vivek Eugene DO DO ms3 Agusto Heredia RN RN ll3
[2022-08-05 03:34] VITALS: TEMP 97.7
[2022-08-05 03:36] VITALS: BP 130/72; O2SAT 100
--- NOTE | 2022-08-06 13:17 | RAD REPORT ---
EXAM DESCRIPTION: CT - [id number] - 08/05/2022 6:55 am CLINICAL HISTORY: The patient is 66 years old and is Female; Fall TECHNIQUE: Axial computed tomography images of the head/brain and cervical spine without intravenous contrast. Sagittal and coronal reformatted images were created and reviewed. This CT exam was pe rformed using one or more of the following dose reduction techniques: automated exposure control, a djustment of the mA and/or kV according to patient size, and/or use of iterative reconstruction techn ique. COMPARISON: No relevant prior studies available. FINDINGS: BRAIN: Unremarkable. No hemorrhage. No significant white matter disease. No edema. VENTRICLES: Unremarkable. No ventriculomegaly. SKULL: Hyperostosis frontalis is noted. No acute fracture. SINUSES: Unremarkable as visualized. No acute sinusitis. MASTOID AIR CELLS: Evidence of a right mastoidectomy is present. VERTEBRAE: The vertebral body heights and alignment are maintained. No acute fracture. DISCS/SPINAL CANAL/NEURAL FORAMINA: There is multi-level intervertebral disc height loss. There a re disc-osteophyte complexes at several levels, with associated mild spinal canal narrowing. There is also facet hypertrophy and uncovertebral joint osteophytosis, with associated multilevel neural fora sebastian narrowing. SOFT TISSUES: Left frontal scalp soft tissue swelling is noted. LUNG APICES: Unremarkable as visualized. IMPRESSION: 1. No acute intracranial findings. 2. Spondylosis of the cervical spine without acute findings. Electronically signed by: Jing Whaley MD 08/05/2022 2:16 AM GAMBRELER Due to temporary technical issues with the PACS/Fluency reporting system, reports are being signed by the in house radiologists without review as a courtesy to insure prompt reporting. The interpreting radiologist is fully responsible for the content of the report.
== END 2022-08-05 03:29 | disposition home or self-care (01) ==
LOC: ER 23:56
DX: S00.83XA Contusion of other part of head, initial encounter (principal); S50.311A Abrasion of right elbow, initial encounter; W18.30XA Fall on same level, unspecified, initial encounter; Z91.048 Other nonmedicinal substance allergy status
CPT/HCPCS: 36415; 70450; 72125; 80048; 85025; 99283

== ENCOUNTER 2023-10-20 01:10 | Inpatient (IN) | payer OTHER ==
--- OUTSIDE RECORDS SUMMARY | 2023-10-20 01:13 | XMS REPORT | Clinical Summary ---
Author Name Unknown Organization [facility] Address [address] [place] [address] Care Team Providers Care Wellness Program Administrator Name Role Phone Hemal Berg MD Primary Care Provider Kadi Esposito MD Unavailable [phone] Liborio Pereira Unavailable [phone] Lorenzo Acosta MD Unavailable [phone] Ignacio Salvador MA, James H Unavailable Unavailabl Tom Hernandez MD Unavailable Hemal Berg MD Unavailable Dominick Akbar Unavailable [phone] Zhang Chavez MD Unavailable [phone] James Fernandez MD Unavailable Vida Christensen MD Unavailable Allergies Active Allergy Reactions Criticality Noted Date Comments Adhesive Rash Low 10/09/2016 Other Dermatitis High 12/24/2018 Allergic to all metals Medications Medication Sig Dispensed Refills Start Date End Date Status levothyroxine (SYNTHROID, LEVOTHROID) 75 mcg tablet Take 1 tablet by mouth daily. 0 Active omeprazole (PriLOSEC) 10 MG capsule Take 10 mg by mouth as needed. Reported on 10/09/2016 0 Active ranitidine (ZANTAC) 150 mg tablet Take 150 mg by mouth as needed. Reported on 10/09/2016 0 Active NAPROXEN SODIUM (ALEVE ORAL) Take 2 tablets by mouth as needed. 0 Active topiramate (QUDEXY XR) 100 mg CSpX Take 150 mg by mouth every evening. 0 Active CYANOCOBALAMIN, VITAMIN B-12, (B-12 KIT INJECTION) Inject 1 application as directed every 30 (thirty) days. 0 Active SALIVAMAX 351 mg pwpk RINSE 8-10 TIMES DAILY. RECONSTITUTE EACH PACKET WITH WATER. 11 01/30/2018 Active TURMERIC, BULK, MISC 1 capsule by miscellaneous route every evening. 0 Active solifenacin (VESICARE) 5 MG tablet Take by mouth. 0 Active magnesium oxide 500 mg tablet Take 500 mg by mouth every evening. 0 Active UNABLE TO FIND 2 tablets twice daily. Med Name: Rex's Leg Cramps Homeopathic Tabs 0 Active tolterodine (DETROL LA) 4 mg 24 hr capsule Take by mouth every evening. 0 Active magnesium chloride (SLOW-MAG ORAL)Indications:+ Vitamin B2 Take 2 tablets by mouth daily. 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 Her radiation therapy spanned from 04/11/2015 to 05/20/2015, receiving 60 Gy over 30 fractions. She underwent lateral temporal bone resection with facial nerve decompression, superficial parotidectomy, upper neck dissection, and temporalis rotational flap reconstruction. Her radiation therapy spanned from 04/11/2015 to 05/20/2015, receiving 60 Gy over 30 fractions. 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 History of laparoscopic adjustable gastric sabina ng 06/30/2015 Neuralgia 06/17/2015 Surgical History Surgery Date Site/Laterality Comments RESECTION TEMPORAL BONE 02/28/2015 Right TONSILLECTOMY 09/02/1971 - 09/01/1972 HYSTERECTOMY 09/02/1994 - 09/01/1995 with Bladder sling GASTRIC BYPASS 08/02/1999 - 09/01/1999 SHOULDER SURGERY 09/02/2008 - 09/01/2009 Right Rotator cuff repair COLONOSCOPY 09/02/2015 - 09/01/2016 CHOLECYSTECTOMY 09/02/1992 - 09/01/1993 UPPER GASTROINTESTINAL ENDOSCOPY 09/02/2002 - 09/01/2003 VENTRAL HERNIA REPAIR 1994; 2002 with Mesh STOMACH SURGERY 09/02/1998 - 09/01/1999 Vertical Gastric Banding PANNICULECTOMY 09/02/2002 - 09/01/2003 NM RPR 1ST INGUN HRNA AGE 5 YRS/> REDUCIBLE 10/29/2016 Abdomen/Right Procedure: REPAIR OF REDUCIBLE INGUINAL HERNIA- RIGHT; Surgeon: James Fernandez MD; Location: MAIN OR; Service: SURG ONC - GENERAL Medical devices from this surgery are in the Medical Devices section. 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 Gastro-esophageal reflux dis ease without esophagitis 1994 Inguinal hernia Obesity Endometriosis Hypertension 02/06/2017 Family [...] Date Smoking Tobacco: Former Cigarettes 1.5 15 1 966 - 1980 Smokeless Tobacco: Never Alcohol Use Standard Drinks/Week Comments No 0 (1 standard drink = 0.6 oz pur e alcohol) 3 drinks/month Sex and Gender Information Value Date Recorded Sex Assigned at Not on file Gender Identity Not on file Sexual Orientation Not on file Obstetrics History Para Term AB IAB SAB Ectopic Multiple Livin g Live Births 4 4 Date Outcome GA Total Labor Labor/2nd/3rd Weight Sex Delivery Anes PTL Della A1 A5 Name Cl in Para Para Para Para Comments Menarche at age 8 Parity at age 18 Control Pills: 12 years Hormones: 2 years Plan of Treatment Health Maintenance Due Date Last Done Comments COVID-19 Vaccination (#1) 02[birth year]18/1956 Medical Devices Implanted Type Area Legal Services Manager Device Identifier Shelf Expiration Date Model / Serial / Lot Mesh Marlex 2" X 12" - [id number] Implanted:Qty : 1 on 10/29/2016 by James Fernandez MD at [facility] Implant Right: Inguinal [employer] 04/29/2020 [id number] / [id number] / [id number] Advance Directives Latest Code Status on File Code Status Date Activated Date Inactivated Comments Full Code 10/29/2016 9:36 AM 10/29/2016 3:34 PM Care Teams Wellness Program Administrator Relationship Specialty Start Date End Date Hemal Berg MD [address] [place] [address] [id number] PCP - General 11/02/15 Kadi Esposito MD [address] [place] [phone] PCP - External Referring 01/06/15 Liborio Pereira AuD [address] [place] [address] [address] [place], [place] [id number] Car Shifter 11/09/15 Lorenzo Acosta MD [address] [place] [address]. [facility] [address] [place] [address] Physician 11/09/15 Lexa Pierre Jr., MA Car Shifter 11/09/15 Tom Melendez MD [address] [place] [phone] Physician 11/09/15 Hemal Berg MD [address] [place] [phone] Physician 11/09/15 Dominick Akbar PA [address] [place] [id number] Physician Homicide Squad Sergeant 11/09/15 Zhang Chavez MD [address] [place] [address] [phone] Physician 11/09/15 James Fernandez MD [address] [place] [address] [phone] Consulting Physician Surgical Oncology 10/09/16 Vida Christensen MD [address] [place] [id number] Consulting Physician Breast Medical Oncology 10/04/17
[2023-10-20 02:29] LABS: Hematocrit 34.9 % (36.0-45.0); MCH 29.7 pg (27.0-35.0); MCV 86.8 fL (80-100); RBC Red Blood Cell Count 4.02 M/uL (3.86-4.86)
[2023-10-20 02:30] LABS: MCHC 34.3 g/dL (32.0-36.0); MPV 8.1 fL (7.6-11.3); Platelets 262 thou/uL (152-406)
[2023-10-20 02:31] LABS: Absolute Eosinophils 0.2 K/uL (0-0.5); Absolute Lymphocytes (CBC) 1.2 K/uL (0.7-4.9); Absolute Monocytes 0.7 K/uL (0.1-1.3); Absolute Neutrophil 4.6 K/uL (1.8-8.0); Basophils % 0.6 % (0-1.3); Eosinophils % 2.5 % (0-4.4); Lymphocytes % 17.9 % (15.3-44.8); Monocytes % 10.9 % (3.3-12.3); Neutrophils % 68.1 % (41.7-73.7)
[2023-10-20 02:50] LABS: Anion Gap 14.1 mEq/L (5.0-15.0); Potassium 3.1 mEq/L (3.5-5.1)
[2023-10-20 02:54] LABS: Troponin High Sensitivity 97.7 pg/mL (<58.9)
[2023-10-20] MEDS ORDERED: NA CHLORIDE 0.9% 1,000 ML ONE ×2 (02:59→07:07)
--- NOTE | 2023-10-20 04:24 | EDPHYS ---
Physician Documentation [facility] Name: Yvonne Szymanski Age: 68 yrs Sex: Female : 1955 Arrival Date: 10/20/2023 Time: 01:10 Bed 4 Private MD: ED Physician Jamie Aly HPI: 10/20 01:27 This 68 yrs old Female presents to ER via EMS with complaints of Fall Injury, ec2 Dizziness. 01:27 Patient arrives today for evaluation after a fall. States that she been feeling ec2 generally weak and lightheaded for the past several weeks. Patient reports that she was attempting to get up, was assisting, patient notes that her foot had gotten trapped under the chair and subsequently she fell. Patient reports that she did not injure herself, no head strike, no blood thinners. Patient reports no chest pain, no difficulty breathing, no abdominal pain, no nausea or vomiting. States she has been having some cough and cold symptoms recently.. Historical: - Allergies: 01:55 Adhesives; km8 01:55 metal; km8 - PMHx: 01:55 acid reflux; Hypothyroidism; PROLAPSED RECTUM; km8 - PSHx: 01:55 Cataract and Lasik SX; hernia repair; R. ACL Repair; R. Ear Canal CA; km8 02:03 Cholecystectomy; Total abdominal hysterectomy; bariactric surgery; km8 - Immunization history:: Client reports having NOT received the Covid vaccine. Flu vaccine is not up to date. - Social history:: Smoking status: Patient/guardian denies using tobacco, but has a distant history of tobacco abuse. ROS: 01:27 Constitutional: as per hpi ec2 Exam: 01:27 Constitutional: GEN: No acute distress HEENT: -Head: no deformities -Eyes: EOMI CV: ec2 regular rate LUNGS: no respiratory distress ABD: non-tender SKIN: no wounds appreciated MSK: No C/T/L spine deformities RUE w/o bony deformity LUE w/o bony deformity RLE w/o bony deformity LLE w/o bony deformity NEURO: moves all extremities equally, GCS 15 (E4, V5, M6) Vital Signs: 01:15 BP 90 / 63; Pulse 62; Resp 18; Pulse Ox 100% on R/A; Weight 117.93 kg (R); Height 5 ft. [facility] 8 in. ; Pain 7/10; 01:30 BP 80 / 58; Pulse 61; Resp 18; Pulse Ox 100% on R/A; km8 02:00 BP 89 / 63; Pulse 58; Resp 20; Pulse Ox 97% on R/A; 8 02:45 BP 82 / 49; Pulse 65; Resp 18; Pulse Ox 98% on R/A; 8 03:00 BP 85 / 54; Pulse 67; Resp 20; Pulse Ox 97% on R/A; 8 03:45 BP 98 / 64; Pulse 69; Resp 16; Pulse Ox 100% on R/A; 8 04:00 BP 88 / 57; Pulse 66; Resp 16; Pulse Ox 99% on R/A; 8 04:30 BP 97 / 73; Pulse 67; Resp 16; Pulse Ox 100% on R/A; 8 05:00 BP 117 / 95; Pulse 74; Resp 22; Pulse Ox 99% on R/A; [facility] 01:15 Body Mass Index 39.53 (117.93 kg, 172.72 cm) [facility] 01:15 Pain Scale: Adult [facility] Aurea Coma Score: 01:15 Eye Response: spontaneous(4). Motor Response: obeys commands(6). Verbal Response: [facility] oriented(5). Total: 15. Procedures: 04:21 Central Line: the site was prepped with Betadine, in sterile fashion, a triple lumen ec2 catheter was inserted, in the right internal jugular vein, in 1 attempts. placement was verified, by CXR, by blood return, the site was dressed with Tegaderm, using sterile technique, the patient tolerated the procedure, well. MDM: 01:27 Patient medically screened. ec2 01:27 ED course: Patient arrives today for evaluation after ground-level fall. Emanation ec2 remarkable for well-appearing nontoxic individual is otherwise in no acute distress. Will obtain lab work, EKG, chest x-ray. Evaluated for arrhythmia, electrolyte disturbances. No evidence of significant trauma on patient's physical examination, will defer any CT scan of the head or C-spine. 01:50 ED course: EKG independently reviewed and interpreted by me, shows normal sinus rhythm ec2 heart rate 58, no acute ST segment elevations, nonconcerning intervals.. 02:48 Data reviewed: vital signs. ED course: CBC reassuring.. ec2 02:53 ED course: Metabolic profile shows hyponatremia and hypokalemia, renal dysfunction with ec2 a creatinine of 2.3 and GFR of 22, troponin at 97. . 03:05 ED course: Chest x-ray independently reviewed and interpreted by me, shows no acute ec2 intrathoracic process. Will admit for hyponatremia.. 04:21 ED course: Patient markedly dehydrated, easily collapsible veins subsequently difficult ec2 to place peripheral IV. I placed a right IJ central line due to access issues. Will admit for hyponatremia And hypokalemia. Will supplement the patient's potassium as well.. 04:22 ED course: Second chest x-ray independently reviewed and interpreted by me, shows ec2 appropriately placed central line. Appropriate for use. . 10/20 01:27 Order name: Basic Metabolic Panel; Complete Time: 02:54 ec2 10/20 01:27 Order name: CBC with Diff; Complete Time: 02:48 ec2 10/20 01:27 Order name: Troponin HS; Complete Time: 02:54 ec2 10/20 05:30 Order name: UAM; Complete Time: 05:51 jb4 10/20 05:39 Order name: Thyroid Stimulating Hormone EDMS 10/20 05:39 Order name: Urinalysis w/ reflexes EDMS 10/20 05:39 Order name: Basic Metabolic Panel EDMS 10/20 05:39 Order name: Basic Metabolic Panel EDMS 10/20 05:39 Order name: CBC with Automated Diff EDMS 10/20 05:39 Order name: CBC with Automated Diff EDMS 10/20 05:39 Order name: Lipid Profile EDMS 10/20 05:39 Order name: Lipid Profile EDMS 10/20 05:39 Order name: Magnesium EDMS 10/20 05:39 Order name: Magnesium EDMS 10/20 05:39 Order name: Phosphorus EDMS 10/20 05:39 Order name: Phosphorus EDMS 10/20 08:17 Order name: Basic Metabolic Panel EDMS 10/20 08:17 Order name: Troponin High Sensitivity EDMS 10/20 08:17 Order name: Magnesium EDMS 10/20 08:18 Order name: Osmolality, Serum EDMS 10/20 08:43 Order name: T4 Free EDMS 10/20 12:07 Order name: Basic Metabolic Panel EDMS 10/20 12:07 Order name: Troponin High Sensitivity EDSD 10/20 12:07 Order name: Phosphorus EDSD 10/20 13:04 Order name: Osmolality, Urine EDSD 10/20 13:04 Order name: UR SODIUM EDSD 10/20 13:10 Order name: UR POTASSIUM EDSD 10/20 13:10 Order name: Ur Protein EDSD 10/20 14:53 Order name: Basic Metabolic Panel [facility] 10/20 01:27 Order name: XRAY Chest (1 view) 2 10/20 04:20 Order name: CXR XRAY 2 10/20 09:27 Order name: RAD EDSD 10/20 13:21 Order name: US [facility] 10/20 01:27 Order name: EKG; Complete Time: 01:28 ec2 10/20 05:39 Order name: Patient Safety Orders [facility] 10/20 05:39 Order name: CONS Physician Consult [facility] 10/20 05:39 Order name: Physical Therapy Consult [facility] 10/20 01:27 Order name: Cardiac monitoring; Complete Time: 01:45 ec2 10/20 01:27 Order name: EKG - Nurse/Tech; Complete Time: 01:39 ec2 10/20 01:27 Order name: IV Saline Lock; Complete Time: 01:31 ec2 10/20 01:27 Order name: Labs collected and sent; Complete Time: 02:13 ec2 10/20 01:27 Order name: O2 Per Protocol; Complete Time: 01:31 ec2 10/20 01:27 Order name: O2 Sat Monitoring; Complete Time: 01:31 ec2 Administered Medications: 05:08 Discontinued: ns 0.9% 1000 ml IV at 1 bolus Per protocol; 1000 mL bolus jb4 04:49 Drug: NS 0.9% IV 1000 ml IV at 1 bolus Per protocol; 1000 mL bolus Route: IV; Rate: 1 jb4 bolus; Site: right jugular; 05:08 Follow up: Response: No adverse reaction; IV Status: Order to discontinue infusion; IV jb4 Intake: 500ml 04:49 Drug: Potassium Chloride PO 40 mEq PO once Route: PO; jb4 04:49 Drug: Potassium Chloride IV 20 mEq IV at calculated rate once; administer over 1-2 jb4 hours Route: IV; Rate: calculated rate; Site: right jugular; Disposition Summary: 10/20/23 04:23 Hospitalization Ordered Notes: Hospitalization Status: Inpatient Admission ec2 Provider: Mendez Fontaine ec2 Condition: Stable ec2 Problem: new ec2 Symptoms: are unchanged ec2 Bed/Room Type: Standard ec2 Location: Intensive Care Unit(10/20/23 14:27) eb Room Assignment: 2-(10/20/23 14:27) eb Diagnosis - Hypo-osmolality and hyponatremia ec2 - Hypokalemia ec2 - Acute kidney failure, unspecified ec2 Forms: - Medication Reconciliation Form ec2 - SBAR form ec2 - Leadership Thank You Letter ec2 Critical care time excluding procedures: 04:23 Critical care time: Bedside Care: 30 minutes, Consultation: 5 minutes. Total time: 35 ec2 minutes Signatures: Dispatcher [employer] EDMS Efren Sanford, CAROLINA [id number] Carina Bullock, RN RN cg Lexa Galicia RN RN jb4 Merlene Baez Edwin, MD MD ec2 Robyn Enciso RN RN km8 Corrections: (The following items were deleted from the chart) 02:55 02:53 ED course: Discussed with lab, patient with hyponatremia, sodium of 118. Elevated ec2 troponin in the 90s.. ec2 05:40 04:23 Telemetry/MedSurg (Inpatient) ec2 cg 05:40 04:23 ec2 cg 14:27 05:40 [facility] ER HOLD cg eb 14:27 05:40 ERHOLD- cg eb
--- NOTE | 2023-10-20 04:24 | ER ---
Nurse's Notes [facility] Name: Yvonne Szymanski Age: 68 yrs Sex: Female : 1955 Arrival Date: 10/20/2023 Time: 01:10 Bed 4 Private MD: Diagnosis: Hypo-osmolality and hyponatremia;Hypokalemia;Acute kidney failure, unspecified Presentation: 10/20 01:15 Chief complaint: EMS states: toned out for fall; pt fell today due to dizziness for 1 km8 month; pt reports new pain to right shoulder and buttocks; pt has chronic pain to neck and back and states that pain is the same. Coronavirus screen: Client denies travel out of the [place] in the last 14 days. Ebola Screen: No symptoms or risks identified at this time. Initial Sepsis Screen: Does the patient meet any 2 criteria? No. Patient's initial sepsis screen is negative. Does the patient have a suspected source of infection? No. Patient's initial sepsis screen is negative. Risk Assessment: Do you want to hurt yourself or someone else? Patient reports no desire to harm self or others. Onset of symptoms was October 20, 2023. 01:15 Method Of Arrival: EMS [facility] 01:15 Acuity: STEPHAN 3 8 01:15 Care prior to arrival: IV initiated. 20 GA, in the left antecubital area. km8 Triage Assessment: 01:15 General: Appears in no apparent distress. comfortable, Behavior is calm, cooperative, km8 appropriate for age. Pain: Complains of pain in right shoulder and buttocks Pain currently is 7 out of 10 on a pain scale. EENT: No signs and/or symptoms were reported regarding the EENT system. Neuro: Level of Consciousness is awake, alert, obeys commands, Oriented to person, place, time, situation, Reports dizziness. Cardiovascular: Denies chest pain, shortness of breath, Patient's skin is warm and dry. Respiratory: Airway is patent Respiratory effort is even, unlabored, Respiratory pattern is regular, symmetrical. GI: No signs and/or symptoms were reported involving the gastrointestinal system. : No signs and/or symptoms were reported regarding the genitourinary system. Derm: No signs and/or symptoms reported regarding the dermatologic system. Skin is intact, is healthy with good turgor, Skin is dry, Skin is pink, warm \T\ dry. normal, Skin temperature is warm. Musculoskeletal: No signs and/or symptoms reported regarding the musculoskeletal system. Circulation, motion, and sensation intact. Range of motion: intact in all extremities. Historical: - Allergies: :55 Adhesives; 01:55 metal; 8 - PMHx: 01:55 acid reflux; Hypothyroidism; PROLAPSED RECTUM; 8 - PSHx: 01:55 Cataract and Lasik SX; hernia repair; R. ACL Repair; R. Ear Canal CA; 8 02:03 Cholecystectomy; Total abdominal hysterectomy; bariactric surgery; km8 - Immunization history:: Client reports having NOT received the Covid vaccine. Flu vaccine is not up to date. - Social history:: Smoking status: Patient/guardian denies using tobacco, but has a distant history of tobacco abuse. Screenin:15 [facility] ED Fall Risk Assessment (Adult) History of falling in the last 3 months, 8 including since admission Yes- single mechanical fall (1 pt) Confusion or Disorientation No (0 pts) Intoxicated or Sedated No (0 pts) Impaired Gait No (0 pts) Mobility Assist Device Used No (0 pt) Altered Elimination No (0 pt) Score/Fall Risk Level 0 - 2 = Low Risk Oriented to surroundings, Maintained a safe environment, Educated pt \T\ family on fall prevention, incl call for assistance when getting out of bed, Assessed \T\ reinforced patient's understanding of fall precautions. Abuse screen: Denies threats or abuse. Denies injuries from another. Nutritional screening: No deficits noted. Tuberculosis screening: No symptoms or risk factors identified. Assessment: :15 General: see triage notes/assessment. 8 02:01 Reassessment: Patient appears in no apparent distress at this time. No changes from 8 previously documented assessment. Patient and/or family updated on plan of care and expected duration. Pain level reassessed. Patient is alert, oriented x 3, equal unlabored respirations, skin warm/dry/pink. 03:00 Reassessment: Patient appears in no apparent distress at this time. No changes from 8 previously documented assessment. Patient and/or family updated on plan of care and expected duration. Pain level reassessed. Patient is alert, oriented x 3, equal unlabored respirations, skin warm/dry/pink. 04:00 Reassessment: Patient appears in no apparent distress at this time. No changes from km8 previously documented assessment. Dr. Aly currently placing central line. 05:00 Reassessment: Patient appears in no apparent distress at this time. Patient and/or km8 family updated on plan of care and expected duration. Pain level reassessed. Patient is alert, oriented x 3, equal unlabored respirations, skin warm/dry/pink. 05:27 Reassessment: Dr. Fontaine gave verbal order to insert [place]. Upon cleaning the pt it was jb4 noted that pt has a prolapsed bladder. ER physician instructed us to place pure wick instead. Dr. Fontaine notified. Vital Signs: 01:15 BP 90 / 63; Pulse 62; Resp 18; Pulse Ox 100% on R/A; Weight 117.93 kg (R); Height 5 ft. km8 8 in. ; Pain 7/10; 01:30 BP 80 / 58; Pulse 61; Resp 18; Pulse Ox 100% on R/A; km8 02:00 BP 89 / 63; Pulse 58; Resp 20; Pulse Ox 97% on R/A; km8 02:45 BP 82 / 49; Pulse 65; Resp 18; Pulse Ox 98% on R/A; km8 03:00 BP 85 / 54; Pulse 67; Resp 20; Pulse Ox 97% on R/A; km8 03:45 BP 98 / 64; Pulse 69; Resp 16; Pulse Ox 100% on R/A; km8 04:00 BP 88 / 57; Pulse 66; Resp 16; Pulse Ox 99% on R/A; km8 04:30 BP 97 / 73; Pulse 67; Resp 16; Pulse Ox 100% on R/A; km8 05:00 BP 117 / 95; Pulse 74; Resp 22; Pulse Ox 99% on R/A; km8 01:15 Body Mass Index 39.53 (117.93 kg, 172.72 cm) km8 01:15 Pain Scale: Adult km8 Aurea Coma Score: 01:15 Eye Response: spontaneous(4). Motor Response: obeys commands(6). Verbal Response: km8 oriented(5). Total: 15. ED Course: 01:13 Patient arrived in ED. kj1 01:15 Arm band placed on right wrist. km8 01:15 Patient has correct armband on for positive identification. Bed in low position. Call km8 light in reach. Side rails up X2. Client placed on continuous cardiac and pulse oximetry monitoring. NIBP monitoring applied. Warm blanket given. 01:15 No provider procedures requiring assistance completed. Maintain EMS IV. Dressing km8 intact. Site clean \T\ dry. Gauge \T\ site: 20 gauge left AC. Patient maintains SpO2 saturation greater than 95% on room air. 01:26 Robyn Enciso, EMMETT is Primary Nurse. km8 01:27 Jamie Aly MD is Attending Physician. ec2 01:54 Triage completed. km8 01:55 XRAY Chest (1 view) In Process Unspecified. EDMS 02:04 Basic Metabolic Panel Sent. oe 02:04 CBC with Diff Sent. oe 02:04 Troponin HS Sent. oe 04:23 Mendez Fontaine is Hospitalizing Provider. ec2 04:32 CXR XRAY In Process Unspecified. EDMS 06:18 Jamie Aly MD is Attending Physician. ec2 Administered Medications: 05:08 Discontinued: ns 0.9% 1000 ml IV at 1 bolus Per protocol; 1000 mL bolus jb4 04:49 Drug: NS 0.9% IV 1000 ml IV at 1 bolus Per protocol; 1000 mL bolus Route: IV; Rate: 1 jb4 bolus; Site: right jugular; 05:08 Follow up: Response: No adverse reaction; IV Status: Order to discontinue infusion; IV jb4 Intake: 500ml 04:49 Drug: Potassium Chloride PO 40 mEq PO once Route: PO; jb4 04:49 Drug: Potassium Chloride IV 20 mEq IV at calculated rate once; administer over 1-2 jb4 hours Route: IV; Rate: calculated rate; Site: right jugular; Medication: 01:15 VIS not applicable for this client. km8 Intake: 05:08 IV: 500ml; Total: 500ml. jb4 Outcome: 04:23 Decision to Hospitalize by Provider. ec2 15:17 Patient left the ED. aa5 Signatures: Dispatcher [employer] Hedy Clinton, RN RN aa5 Lexa Galicia, EMMETT RN jb4 Woody Sánchez oe Yasmine Perez kj1 Jamie Aly MD MD ec2 Robyn Enciso, EMMETT RN km8 Corrections: (The following items were deleted from the chart) 05:16 05:00 Reassessment: Patient appears in no apparent distress at this time. No changes km8 from previously documented assessment. Patient and/or family updated on plan of care and expected duration. Pain level reassessed. Patient is alert, oriented x 3, equal unlabored respirations, skin warm/dry/pink. km8
[2023-10-20] MEDS ORDERED: POTASSIUM CL SA 10 MEQ TAB PO ONE (04:40)
[2023-10-20] MEDS ORDERED: KCL 20 MEQ/100 mL IVPB 100 ML IV ONE (04:40)
--- NOTE | 2023-10-20 05:31 | P.HP ---
Certification for Inpatient Patient admitted to: Inpatient With expected LOS: >2 Midnights Practitioner: I am a practitioner with admitting privileges, knowledge of patient current condition, hospital course, and medical plan of care. Services: Services provided to patient in accordance with Admission requirements found in Title 42 Section 412.3 of the Code of Federal Regulations Patient History Date of Service: 10/20/23 Reason for admission: Fall, generalized weakness History of Present Illness: 68-year-old man with a history of hypertension, depression hypothyroidism was b rought to the emergency department due to fall. Patient reported dizziness followed by a fall. She reports 2-month history of fatigue and weakness. She denied any nausea or vomiting or diarrhea. She denied any fever. She states that she has been finishing her meals. She denied any polyuria. Notes that she has a history of bladder prolapse. Workup done in the emergency department is notable for hyponatremia with sodium of 118, KYRA with creatinine up to 2.3 and elevated troponin. Patient is on hydrochlorothiazide and Aldactone. She denied Lasix use. She was hypotensive in the ED and received a liter of IV normal saline bolus. ED provider placed a central line chest x-ray reviewed and shows no acute disease. Urine analysis is pending. The patient is hospitalized for further management. - Past Medical/Surgical History -: Hypertension -: Depression -: Hypothyroidism -: Bladder prolapse -: Ear canal surgery -: Gastric bypass surgery -: Total abdominal hysterectomy - Family History Family History: Reviewed- Non-Contributory - Social History Smoking Status: Never smoker Alcohol use: No CD- Drugs: No Place of Residence: Home Review of Systems Other: Except as documented, all other systems reviewed and negative. Physical Examination - Physical Exam General: Alert, In no apparent distress, Oriented x3 HEENT: Atraumatic, PERRLA, Mucous membr. moist/pink, EOMI, Sclerae nonicteric Neck: Supple, JVD not distended Respiratory: Clear to auscultation bilaterally, Normal air movement Cardiovascular: Regular rate/rhythm, Normal S1 S2, No murmurs, Edema (1+ bilateral lower extremity edema) Capillary refill: <2 Seconds Gastrointestinal: Normal bowel sounds, Soft and benign, Non-distended Integumentary: No breakdown, No cyanosis Neurological: Normal speech, Normal strength at 5/5 x4 extr, Cranial nerves 3-12 intact Lymphatics: No axilla or inguinal lymphadenopathy - Studies Laboratory Data (last 24 hrs) 10/20/23 10/20/23 02:01 02:01 WBC 6.70 Hgb 12.0 Hct 34.9 L Plt Count 262 Sodium 118 L* Potassium 3.1 L BUN 111 H Creatinine 2.30 H Glucose 85 Assessment and Plan - Problems (Diagnosis) (1) Hypovolemic shock Current Visit: Yes Status: Acute (2) Hyponatremia Current Visit: Yes Status: Acute (3) KYRA (acute kidney injury) Current Visit: Yes Status: Acute (4) Falls Current Visit: Yes Status: Acute (5) Generalized weakness Current Visit: Yes Status: Acute (6) Hypertension Current Visit: Yes Status: Acute (7) Hypothyroidism Current Visit: Yes Status: Acute - Plan Hypovolemic shock Hyponatremia Acute kidney injury Hypotension hyponatremia and KYRA likely secondary to dehydration and antidiuretic use. Admit patient to the medical floor Hydrate with IV normal saline Monitor renal function Nephrology consult. Diet as tolerated. Hold all diuretics-HCTZ and spironolactone. Does not appear to be septic. UA is pending. Check lactate. Falls/generalized weakness Secondary to dehydration. Treat with IV normal saline as above. PT consult. Hypothyroidism May be contributing to the hyponatremia Check TSH Validate and reconcile home medication. Hypertension Patient is currently hypotensive. Hold home antihypertensives. DVT prophylaxis: Heparin SQ Code Status: Full code - Advance Directives Does patient have a Living Will: No Does patient have a Durable POA for Healthcare: No
[2023-10-20] MEDS ORDERED: ONDANSETRON 4 MG/2 ML VIAL IV PRN (05:32)
[2023-10-20 05:44] LABS: Specific Gravity 1.007 (1.005-1.030); Urine Bacteria <20 /HPF (<20); Urine Bilirubin NEGATIVE (Negative); Urine Blood Negative (Negative); Urine Clarity Turbid (Clear); Urine Color Colorless (Yellow); Urine Glucose NEGATIVE (Negative); Urine Mucus Slight /HPF (None Seen); Urine Protein NEGATIVE (Negative); Urine RBC <5 /HPF (None Seen); Urine Urobilinogen Normal (Normal)
[2023-10-20] MEDS: NA CHLORIDE 0.9% 1,000 ML IV SCH ×3 (07:12→11:22)
--- NOTE | 2023-10-20 07:34 | RAD REPORT ---
EXAM DESCRIPTION: RAD - Chest Single View - 10/20/2023 4:30 am CLINICAL HISTORY: s/p CVL COMPARISON: Chest Single View dated 10/20/2023 FINDINGS: Lines: Right IJ approach central line with tip overlying the SVC. Lungs: No evidence of edema or pneumonia. Pleural: No significant pleural effusions or pneumothorax. Cardiac: The heart size is within normal limits. Mediastinum: Widening in the superior mediastinum but with decreased lung volumes. Bones: No acute fractures. Other: None IMPRESSION: Right IJ approach central line with tip overlying the SVC. No pneumothorax. Apparent wid ening of the superior mediastinum probably accentuated by lower lung volumes. Consider repeat chest r adiograph or CTA depending on suspicion..
[2023-10-20 08:13] LABS: Anion Gap 12.9 mEq/L (5.0-15.0); Magnesium 2.3 mg/dL (1.6-2.4); Potassium 3.9 mEq/L (3.5-5.1)
[2023-10-20 08:17] LABS: Troponin High Sensitivity 90.9 pg/mL (<58.9)
[2023-10-20 08:20] LABS: Thyroid Stimulating Hormone 17.6 uIU/mL (0.358-3.740)
[2023-10-20 08:24] LABS: Specific Gravity 1.007 (1.005-1.030); Urine Bacteria >50 /HPF (<20); Urine Bilirubin NEGATIVE (Negative); Urine Blood Negative (Negative); Urine Clarity Turbid (Clear); Urine Color Colorless (Yellow); Urine Glucose NEGATIVE (Negative); Urine Mucus Slight /HPF (None Seen); Urine Protein NEGATIVE (Negative); Urine RBC <5 /HPF (None Seen); Urine Urobilinogen Normal (Normal)
[2023-10-20] MEDS ORDERED: HEPARIN 5000 UNIT/ML 1 ML VIAL ONE ×2 (08:58→16:21)
[2023-10-20] MEDS: HEPARIN 5000 UNIT/ML 1 ML VIAL SQ SCH (09:00)
--- NOTE | 2023-10-20 09:26 | RAD REPORT ---
EXAM DESCRIPTION: RAD - Chest Single View - 10/20/2023 9:19 am CLINICAL HISTORY: Chest pain COMPARISON: Chest Single View dated 10/20/2023; Chest Single View dated 10/20/2023 FINDINGS: Lines: Right IJ approach central line with tip overlying the SVC. Lungs: No evidence of edema or pneumonia. Pleural: No significant pleural effusions or pneumothorax. Cardiac: The heart size is within normal limits. Mediastinum: Mediastinal contour is normal. Bones: No acute fractures. Other: None IMPRESSION: No acute cardiopulmonary disease. Mediastinal contour has a normal configuration on this radiograph. The apparent mediastinal widening was likely accentuated by lower lung volumes.
[2023-10-20 11:47] LABS: Anion Gap 8.5 mEq/L (5.0-15.0); Potassium 3.5 mEq/L (3.5-5.1)
[2023-10-20] MEDS ORDERED: Ringers Lactate 1,000 ML IV ONE (11:57)
[2023-10-20] MEDS: Ringers Lactate 500 ML IV ONE ×4 (12:03→14:57)
[2023-10-20 12:07] LABS: Troponin High Sensitivity 99.1 pg/mL (<58.9)
[2023-10-20 13:10] LABS: UR PROTEIN 12.5 mg/dL (<11.9); Urine Protein/Creatinine Ratio 0.57 ratio (<0.15)
--- NOTE | 2023-10-20 13:21 | RAD REPORT ---
EXAM DESCRIPTION: US - Renal Ultrasound-Complete - 10/20/2023 1:08 pm CLINICAL HISTORY: nelson COMPARISON: Abdomen Pelvis W/Wo Contrast dated 11/08/2021 FINDINGS: Atrophic and mildly lobular right kidney. Left kidney is normal in size. The right kidney measures 7.8 cm. No hydronephrosis, focal mass or perinephric fluid. The left kidney measures 9.9 cm. Left-sided extrarenal pelvis. No hydronephrosis. No focal mass. IMPRESSION: No evidence of hydronephrosis. Mildly atrophic right kidney.
[2023-10-20 14:44] LABS: Anion Gap 12.6 mEq/L (5.0-15.0); Potassium 3.6 mEq/L (3.5-5.1)
--- NOTE | 2023-10-20 15:18 | P.PN ---
Date of Service: 10/20/23 Subjective: Blood pressure soft Moved to ICU ROS: 10 point ROS as noted above, otherwise negative Physical exam GEN: Alert, oriented, NAD HEENT: Normal conjunctiva, sclera anicteric CV: Regular rate and rhythm, no edema Pulm: Nonlabored respirations on room air ABD: Soft, nontender, nondistended MSK: No joint tenderness Integumentary: No rashes Neuro: Normal speech, normal affect Vitals reviewed Problem List Hypovolemic shock Hyponatremia Acute kidney injury Hypotension hyponatremia and KYRA likely secondary to dehydration and antidiuretic use. Moved to ICU for hypotension, close monitoring of electrolytes Nephrology consulting/following Renal function improving Sodium corrected by 8 points, NS discontinued Diet as tolerated. Hold all diuretics-HCTZ and spironolactone. Does not appear to be septic. UA is pending. Check lactate. Falls/generalized weakness Secondary to dehydration. Treat with IV normal saline as above. PT consult. Hypothyroidism May be contributing to the hyponatremia Check TSH Validate and reconcile home medication. Hypertension Patient is currently hypotensive. Hold home antihypertensives. VTE: Lovenox Code: Full Dispo: 48 to 72 hours Time Spent Managing Pts Care (In Minutes): 35
[2023-10-20] MEDS: THIAMINE 200 MG/2 ML INJ IVP ONE ×2 (15:36→16:30)
[2023-10-20 16:04] VITALS: BMI 41.5
[2023-10-20] MEDS ORDERED: THIAMINE 200 MG/2 ML INJ ONE (16:21)
[2023-10-20] MEDS ORDERED: D5W 1,000 ML IV ONE (16:21)
[2023-10-20] MEDS: DESMOPRESSIN 4 MCG/ML AMP SQ ONE (16:30)
[2023-10-20] MEDS: D5W 1,000 ML IV SCH ×2 (16:31→20:40)
[2023-10-20] MEDS: NOREPINEPHRINE 4 MG in D5W 250 ML IV SCH (16:37)
[2023-10-20] MEDS ORDERED: NOREPINEPHRINE BITARTRATE/D5W 4 MG/250 ML BAG IV ONE (16:40)
[2023-10-20 19:25] LABS: Anion Gap 15.8 mEq/L (5.0-15.0); Potassium 3.8 mEq/L (3.5-5.1)
[2023-10-20] MEDS: NOREPINEPHRINE BITARTRATE/D5W 4 MG/250 ML BAG IV ONE (20:29)
[2023-10-21] MEDS: NOREPINEPHRINE BITARTRATE/D5W 4 MG/250 ML BAG IV ONE (01:30)
[2023-10-21] MEDS ORDERED: D5W 0 ML IV ONE (03:39)
[2023-10-21 05:08] LABS: Absolute Eosinophils 0.2 K/uL (0-0.5); Absolute Lymphocytes (CBC) 1.6 K/uL (0.7-4.9); Absolute Monocytes 0.9 K/uL (0.1-1.3); Absolute Neutrophil 3.8 K/uL (1.8-8.0); Basophils % 0.6 % (0-1.3); Eosinophils % 2.8 % (0-4.4); Hematocrit 33.2 % (36.0-45.0); Hemoglobin 11.6 g/dL (12.0-15.0); Lymphocytes % 24.5 % (15.3-44.8); MCH 30.5 pg (27.0-35.0); MCV 87.2 fL (80-100); MPV 7.8 fL (7.6-11.3); Monocytes % 13.5 % (3.3-12.3); Neutrophils % 58.6 % (41.7-73.7); Platelets 271 thou/uL (152-406); RBC Red Blood Cell Count 3.81 M/uL (3.86-4.86); Red Cell Distribution Width 14.4 % (12.1-15.2)
[2023-10-21] MEDS ORDERED: ACETAMINOPHEN 500 MG TAB ONE ×2 (05:09→21:57)
[2023-10-21] MEDS: ACETAMINOPHEN 500 MG TAB PO PRN (05:10)
[2023-10-21] MEDS: NA CHLORIDE 0.9% 1,000 ML IV SCH (05:27)
[2023-10-21 05:29] LABS: Anion Gap 10.7 mEq/L (5.0-15.0); Magnesium 1.8 mg/dL (1.6-2.4); Phosphorus 2.4 mg/dL (2.5-4.9); Potassium 3.7 mEq/L (3.5-5.1)
--- NOTE | 2023-10-21 05:56 | CON ---
Date of Consultation: 10/20/2023 Chief Complaint: Hyponatremia. History Of Present Illness: The patient presented to the hospital because of generalized weakness an d she sustained fall at home and she was brought to emergency room. She is a 68-year-old woman with history of hypertension, depression, hypothyroidism. She was brought to emergency room after she kunal tained fall at home. The patient was complaining of dizziness followed by fall. She reports 2 month s' history of fatigue and weakness. She denied nausea, vomiting, or diarrhea. She denied fever. Sh e stated that she has been consuming her heals and denied any polyuria. She has history of bladder p rolapse, depression, and gastric bypass surgery, total abdominal hysterectomy. The patient denies an y polyuria. She was found to have hyponatremia. Sodium level was 118. Nephrology consultation was requested for acute kidney injury and hyponatremia. Sodium level was 118 and creatinine level was 2. 3. She was found to have elevated troponin. Review of the patient's outpatient medication showed th at she was taking hydrochlorothiazide and Aldactone. Also she apparently was not taking Lasix. She does not remember all medications of what she is taking, although she denies nonsteroidal antiinflamm atory medication. The patient received IV normal saline bolus to control hypovolemia and urinalysis was obtained and pending to rule out urinary tract infection. Culture is pending to rule out urinary tract infection. Past Medical History: Hypertension, depression, hypothyroidism, bladder prolapse, ear canal surgery, gastric bypass surgery, total abdominal hysterectomy. Family History: No kidney disease in the family. Social History: Denies tobacco, alcohol, or illicit drugs. Review of Systems: General: Denies fever, chills. Complains of some difficulty with ambulation. She had dizziness and she had fall. GI: Did have some abdominal pain as well as diarrhea and nausea and vomiting. She denies melena or hematemesis. : Denies dysuria, hematuria. Extremities: The patient has chronic pain in upper and lower extremities. Joints: She has osteoarthritis. Physical Examination: General: She is alert, not in apparent distress, oriented x3. HEENT: Atraumatic, normocephalic. Anicteric sclerae. Neck: Supple. No bruits. Lungs: Bilaterally clear to auscultation. Normal respiratory effort. Cardiovascular: S1, S2. No pericardial friction or rub. Extremities: 1+ bilateral lower extremity edema. Abdomen: Obese, soft, nontender. No rebound. No guarding. No CVA tenderness. Laboratory Work: WBC 6.7, hemoglobin 12.0, platelet count 262,000. Sodium 118, potassium 3.1, BUN 1 11, creatinine 2.3, glucose 85. Impression And Plan: 1.Hypovolemic shock, hyponatremia, acute kidney injury, falls with generalized weakness, hypertensio n, and hypothyroid. The patient has hypovolemic shock and she was started on normal saline. Sodium level has improved. Subsequently, the patient required to change IV fluids to D5W and pressors were started to control hypotension. D5W was used because of over corrected sodium level. Sodium level h as increased from 118 to 125/less than 12 hours. The patient received DDAVP and was switched to hypo tonic fluids and received D5W. Sodium level subsequently decreased to 123. The patient was taken of f HCTZ and spironolactone. The patient does not appear septic, although blood pressure is trending d own and the patient was started on pressors. Further recommendation primary team. 2.Hypertension. The patient is hypotensive and blood pressure medication on hold. 3.Hypothyroid. The patient will have TSH level checked which may be consistent with hyponatremia se condary to hypothyroid. I recommend to check urine cultures, blood cultures, and start the patient on empiric antibiotics. AMARJIT/MODL Voice ID: [id number] Report ID: [id number]
[2023-10-21] MEDS ORDERED: THIAMINE 200 MG/2 ML INJ ONE (08:18)
[2023-10-21] MEDS: MAGNESIUM SULFATE 1 gm IVPB 1 GM/100 ML BAG IV ONE (09:03)
[2023-10-21] MEDS: POTASS/SODIUM PHOSPHATE 1 PKT POWD.PACK PO SCH (09:03)
[2023-10-21] MEDS: THIAMINE 200 MG/2 ML INJ IVP SCH (09:04)
--- NOTE | 2023-10-21 09:19 | P.PN ---
Date of Service: 10/21/23 Subjective: Titrating IV fluids for hyponatremia On Levophed down to 0.05 mcg/kg/min ROS: 10 point ROS as noted above, otherwise negative Physical exam GEN: Alert, oriented, NAD HEENT: Normal conjunctiva, sclera anicteric, right IJ in place CV: Regular rate and rhythm, 1+ edema lower extremities ALIN Pulm: Nonlabored respirations on room air ABD: Soft, nontender, nondistended MSK: No joint tenderness Integumentary: No rashes Neuro: Normal speech, normal affect Vitals reviewed Problem List Hypovolemic shock Hyponatremia Acute kidney injury Hypotension hyponatremia and KYRA likely secondary to dehydration and antidiuretic use. Moved to ICU for hypotension, close monitoring of electrolytes Nephrology consulting/following Renal function improving Continue IV fluids/adjust for sodium concentration Diet as tolerated. Hold all diuretics-HCTZ and spironolactone. Does not appear to be septic Falls/generalized weakness Secondary to dehydration. Treat with IV normal saline as above. PT consult. Hypothyroidism May be contributing to the hyponatremia Subclinincal hypothyroidism-Fu with PCP Hypertension Patient is currently hypotensive. Hold home antihypertensives. VTE: Lovenox Code: Full Dispo: > 2 days Time Spent Managing Pts Care (In Minutes): 35 <Efren Sanford - Last Filed: 10/21/23 09:20> Pt seen and examined on rounds this monring with DIESEL ENGINEER Juvenal. Agree with plan of care as noted above. Improving. no new / worsening symptoms IVF adjusted repeat bmp <Renaldo Rob - Last Filed: 10/21/23 22:42>
[2023-10-21 10:14] LABS: Anion Gap 11.7 mEq/L (5.0-15.0); Potassium 3.7 mEq/L (3.5-5.1)
--- NOTE | 2023-10-21 10:57 | EKG ---
Test Date: 2023-10-20 Test Time: 01:43:36 Sales Service Executive: SHAW MEASUREMENT RESULTS: Intervals: Rate: 58 AR: 266 QRSD: 110 QT: 458 QTc: 449 [place]: P: 62 AR: 266 QRS: -44 T: 58 INTERPRETIVE STATEMENTS: Sinus bradycardia with 1st degree AV block Left axis deviation Abnormal ECG Compared to ECG 12/11/1993 12:19:00 First degree AV block now present Left-axis deviation now present Sinus rhythm no longer present Atrial abnormality no longer present Electronically Signed On 10-21-23 10:55:56 COAL DELIVERER by Manuel Smith
--- NOTE | 2023-10-21 10:58 | ECHO ---
HEIGHT: 5 ft 8 in WEIGHT: 273 lb 0 oz DATE OF STUDY: 10/21/[address]: Efren Sanford NP 2-DIMENSIONAL: YES M.MODE: YES DOPPLER: YES COLOR FLOW: YES TDS: NO PORTABLE: YES DEFINITY: NO BUBBLE STUDY: NO DIAGNOSIS: CONGESTIVE HEART FAILURE/ HYPOTENSION CARDIAC HISTORY: CATHERIZATION: SURGERY: PROSTHETIC VALVE: PACEMAKER: MEASUREMENTS (cm) DIASTOLIC (NORMALS) SYSTOLIC (NORMALS) IVSd 0.9 (0.6-1.2) LA Diam 3.6 (1.9-4.0) LVEF 55-60% LVIDd 3.3 (3.5-5.7) LVIDs 2.1 (2.0-3.5) %FS 36% LVPWd 0.8 (0.6-1.2) Ao Diam 3.8 (2.0-3.7) 2 DIMENSIONAL ASSESSMENT: RIGHT ATRIUM: NORMAL LEFT ATRIUM: NORMAL RIGHT VENTRICLE: NORMAL LEFT VENTRICLE: MILD LEFT VENTRICULAR HYPERTROPHY TRICUSPID VALVE: TRACE OF TRICUSPID REGURGITATION MITRAL VALVE: NORMAL PULMONIC VALVE: NORMAL AORTIC VALVE: TRACE OF AORTIC REGURGITATION PERICARDIAL EFFUSION: NONE AORTIC ROOT: NORMAL LEFT VENTRICULAR WALL MOTION: NORMAL. DOPPLER/COLOR FLOW: GRADE I DIASTOLIC DYSFUNCTION. COMMENTS: 1. NORMAL LEFT VENTRICULAR FUNCTION, EJECTION FRACTION 55-60%, NORMAL WALL MOTION. 2. GRADE I DIASTOLIC DYSFUNCTION. 3. TRACE OF TRICUSPID AND AORTIC REGURGITATION. 4. RIGHT VENTRICULAR SYSTOLIC PRESSURE 25-30mmHg TECHNOLOGIST: CATHY GOMEZ
--- NOTE | 2023-10-21 11:40 | RAD REPORT ---
EXAM DESCRIPTION: RAD - Chest Single View - 10/20/2023 1:53 am CLINICAL HISTORY: CHEST PAIN COMPARISON: None TECHNIQUE: Single AP view of the chest. FINDINGS: Lung volumes adequate. Cardiac silhouette is normal in size. No pneumothorax. No large pleural effusion. No focal consolidation. No acute bony finding. IMPRESSION: No evidence of acute cardiopulmonary disease. Electronically signed by: Nevaeh Bai MD 10/20/2023 02:50 AM PERL PROGRAMMER Due to temporary technical issues with the PACS/Fluency reporting system, reports are being signed by the in house radiologist without review as a courtesy to ensure prompt reporting. The interpreting r adiologist is fully responsible for the content of the report.
[2023-10-21] MEDS ORDERED: NOREPINEPHRINE BITARTRATE/D5W 4 MG/250 ML BAG IV ONE ×2 (13:02→19:48)
[2023-10-21 17:51] LABS: Anion Gap 10.1 mEq/L (5.0-15.0); Potassium 4.1 mEq/L (3.5-5.1)
[2023-10-22] MEDS ORDERED: HEPARIN 5000 UNIT/ML 1 ML VIAL ONE (01:46)
[2023-10-22] MEDS ORDERED: POTASSIUM CL SA 10 MEQ TAB PO ONE (01:47)
[2023-10-22] MEDS ORDERED: NA CHLORIDE 0.9% 1,000 ML ONE (01:47)
[2023-10-22] MEDS: POTASSIUM CL SA 10 MEQ TAB PO SCH (01:55)
[2023-10-22] MEDS: NA CHLORIDE 0.9% 1,000 ML IV SCH (01:56)
[2023-10-22 06:02] LABS: Hematocrit 32.1 % (36.0-45.0); MCH 30.2 pg (27.0-35.0); MCHC 34.3 g/dL (32.0-36.0); MCV 88.1 fL (80-100); MPV 7.9 fL (7.6-11.3); Platelets 232 thou/uL (152-406); RBC Red Blood Cell Count 3.64 M/uL (3.86-4.86); Red Cell Distribution Width 14.1 % (12.1-15.2)
[2023-10-22 06:13] LABS: Anion Gap 9.1 mEq/L (5.0-15.0); Magnesium 1.7 mg/dL (1.6-2.4); Phosphorus 2.2 mg/dL (2.5-4.9); Potassium 4.1 mEq/L (3.5-5.1)
[2023-10-22] MEDS: LEVOTHYROXINE SOD 0.075 MG TAB PO SCH (06:13)
[2023-10-22] MEDS ORDERED: THIAMINE 200 MG/2 ML INJ ONE (09:09)
[2023-10-22] MEDS ORDERED: ACETAMINOPHEN 500 MG TAB ONE (09:09)
[2023-10-22] MEDS: VENLAFAXINE HCL XR 75 MG CAP PO SCH (09:13)
[2023-10-22 09:52] LABS: Anion Gap 10.2 mEq/L (5.0-15.0); Potassium 4.2 mEq/L (3.5-5.1)
[2023-10-22] MEDS: SODIUM CHLORIDE 1 GM TAB PO SCH ×2 (10:13→20:58)
[2023-10-22 14:15] LABS: Anion Gap 9.7 mEq/L (5.0-15.0); Potassium 4.7 mEq/L (3.5-5.1)
--- NOTE | 2023-10-22 14:21 | P.PN ---
Subjective Date of Service: 10/22/23 Chief Complaint: Fall, generalized weakness Patient denies any complaint today. She states that she has not been able to walk yet. She skipped breakfast because of nausea but otherwise stated she has been eating well. She reports chronic intermittent nausea which she relates to her ear canal surgery. Physical Examination - Vital Signs Temperature: 97.8 F Blood Pressure: 82/58 Pulse: 80 Respirations: 14 Pulse Ox (%): 96 Assessment And Plan - Current Problems (Diagnosis) (1) Hypovolemic shock Current Visit: Yes Status: Acute (2) Hyponatremia Current Visit: Yes Status: Acute (3) KYRA (acute kidney injury) Current Visit: Yes Status: Acute (4) Falls Current Visit: Yes Status: Acute (5) Generalized weakness Current Visit: Yes Status: Acute (6) Hypertension Current Visit: Yes Status: Acute (7) Hypothyroidism Current Visit: Yes Status: Acute - Plan Physical exam GEN: Alert, oriented, NAD HEENT: Normal conjunctiva, sclera anicteric, right IJ in place CV: Regular rate and rhythm, 1+ edema lower extremities ALIN Pulm: Clear to auscultation bilaterally, no rhonchi or rales. ABD: Soft, nontender, nondistended MSK: No joint tenderness Integumentary: No rashes Neuro: Normal speech, normal affect Vitals reviewed Diagnosis Hypovolemic shock Hyponatremia Acute kidney injury Hypotension hyponatremia and KYRA likely secondary to dehydration and antidiuretic use. Moved to ICU for hypotension for Levophed drip. Patient is currently on low dose Levophed drip. Wean off Levophed drip as tolerated. Nephrology is following KYRA resolved Normal serum osmolality. Sodium level significantly improved. Status post desmopressin. Diuretics-HCTZ and spironolactone are on hold Continue to monitor BMP. Falls/generalized weakness Secondary to dehydration. Treat with IV normal saline as above. PT consult. Hypothyroidism May be contributing to the hyponatremia Subclinincal hypothyroidism-Fu with PCP Hypertension Patient is currently hypotensive. Home antihypertensives on hold. VTE: Lovenox Code: Full
[2023-10-22] MEDS: UREA 15 GM POWDER PACKET PO SCH (18:20)
--- NOTE | 2023-10-23 03:26 | PN ---
Date of Progress Note: 10/22/2023 Subjective: This is a 68-year-old woman with past medical history of hypertension, depression, hypot hyroidism, was admitted for fall, found to have severe hyponatremia. Nephrology was consulted for fu rther evaluation. Her sodium is slowly improving to 126. Her blood pressure continued to be borderl ine. Objective: Vital Signs: Temp 97.8, pulse rate 80, blood pressure 82/58. General: Awake and alert, not in distress. Neck: Supple. No elevated JVD. Heart: Regular rate and rhythm. Normal S1, S2. Chest: Clear to auscultation bilaterally. No rales or wheezes. Abdomen: Soft, nontender. Extremities: No edema. Laboratory Data: Sodium 126, potassium 4.7, BUN 9.7, creatinine 0.9, phosphorus 2.2. Her TSH was 17 . Cortisol level was 14.9. Urine study showed low urine potassium with high urine sodium. Assessment And Plan: 1. hypovolemic hyponatremia, likely multifactorial due to poor salt intake, hydrochlorothi azide and hypothyroidism. Sodium is slowly improving. Continue salt tablet and IV fluid. Her corti dulce level was 14. We will repeat the cortisol level. Continue Synthroid at this time. We will add Ure-Na. We will increase salt tablet to 2 g t.i.d. Continue venlafaxine at this time. If no improv ement in the sodium, we will discontinue venlafaxine. 2.Hypothyroidism. Continue Synthroid. 3.Recurrent falls due to hyponatremia. Sodium correction as above. Continue PT, OT. 4.Hypertension. Currently blood pressure is borderline. Continue to hold home medication including hydrochlorothiazide, aldactone, Entresto and Lasix. Thanks for allowing me to participate in the patient's care. Total time spent 75 minutes including documentation, reviewing labs, and discussing with the patient and me dical staff. KENNEY/ZAHRA Voice ID: [id number] Report ID: [id number]
[2023-10-23 06:03] LABS: Hematocrit 30.9 % (36.0-45.0); Hemoglobin 10.6 g/dL (12.0-15.0); MCH 30.2 pg (27.0-35.0); MCHC 34.2 g/dL (32.0-36.0); MCV 88.1 fL (80-100); MPV 7.5 fL (7.6-11.3); Platelets 240 thou/uL (152-406); RBC Red Blood Cell Count 3.51 M/uL (3.86-4.86); Red Cell Distribution Width 14.2 % (12.1-15.2)
[2023-10-23 06:11] LABS: Magnesium 1.6 mg/dL (1.6-2.4); Phosphorus 2.1 mg/dL (2.5-4.9); Uric Acid 7.1 mg/dL (2.6-6.0)
[2023-10-23 06:37] LABS: Anion Gap 8.4 mEq/L (5.0-15.0); Potassium 4.4 mEq/L (3.5-5.1)
[2023-10-23] MEDS ORDERED: SODIUM PHOSPHATE 10 MM in NA CHLORIDE 0.9% 250 ML IV ONE (08:00)
[2023-10-23] MEDS ORDERED: THIAMINE 200 MG/2 ML INJ ONE (08:20)
[2023-10-23] MEDS: POTASS/SODIUM PHOSPHATE 1 PKT POWD.PACK PO SCH (08:32)
[2023-10-23] MEDS: MAGNESIUM SULFATE 1 gm IVPB 1 GM/100 ML BAG IV ONE ×2 (08:34→11:30)
[2023-10-23] MEDS: NA CHLORIDE 0.9% 1,000 ML IV ONE (11:31)
[2023-10-23] MEDS ORDERED: ACETAMINOPHEN 500 MG TAB ONE (11:37)
--- NOTE | 2023-10-23 12:37 | PN ---
Date of Progress Note: 10/23/2023 Subjective: The patient was admitted to the hospital with hypovolemic shock. The patient was found to have severe hyponatremia and . The patient was started on fluid resuscitation. Levophe d has been discontinued. The patient's blood pressure is still on the lower side. Physical Examination: Vital Signs: Blood pressure 87/60, pulse of 91, afebrile. Chest: Clear to auscultation. Heart: S1, S2 regular. Abdomen: Soft, nontender. Extremities: No edema. Neurologic: Alert. No focality. Lab: WBC 4.4, hemoglobin 10.6, platelet 240. Sodium 134, potassium 4.4, bicarb 26, BUN 29, creatini ne 0.7. Calcium 8.7, uric acid 7.1, magnesium 1.6, phosphorus 2.1. Cortisol level 9.4. TSH 17.6. Urinalysis, urine sodium 47. PC ratio 0.5. Current Medications: The patient on Tylenol, venlafaxine, Zofran, IV fluid, urea, thiamine. Assessment And Plan: 1.Hyponatremia secondary to depletional response to tolvaptan, currently normalized. Continue urea. The patient also has severe hypothyroidism. The patient at home was on 75. I am going to go ahead and increase her levothyroxine to 100 mcg. We will give the patient 1 L of normal saline, then we w ill maintain on 100 continue urea. 2.Hypomagnesemia. We will supplement. 3.Hypertension. Currently blood pressure on the lower side. Keep holding all blood pressure medica tion. 4.Shock, hypovolemic, complicated with encephalopathy and electrolyte imbalance. I am going to bolu s the patient with 1 L and continue fluid resuscitation. We will follow up. 5.Hypophosphatemia. We will supplement. 6.Low cortisol level, questionable adrenal insufficiency. I am going to do cortisol stimulation junior t, given the presence of hypothyroidism, the patient may need low dose of hydrocortisone. We will fo llow up. Time spent examining the patient [id number], reviewing data, lab and radiology, placing order, disc ussing the case with the patient, discussing the case with the sales team recruiter including ICU staff and nu rsing and hospitalist more than 35 minutes. RICKI/ZAHRA Voice ID: [id number] Report ID: [id number]
--- NOTE | 2023-10-23 14:26 | P.PN ---
Subjective Date of Service: 10/23/23 Chief Complaint: Fall, generalized weakness Patient denies any complaint today. She states that she has not been able to walk yet. She states her nausea has resolved. Physical Examination - Vital Signs Temperature: 97.3 F Blood Pressure: 91/68 Pulse: 87 Respirations: 16 Pulse Ox (%): 100 Assessment And Plan - Current Problems (Diagnosis) (1) Hypovolemic shock Current Visit: Yes Status: Acute (2) Hyponatremia Current Visit: Yes Status: Acute (3) KYRA (acute kidney injury) Current Visit: Yes Status: Acute (4) Falls Current Visit: Yes Status: Acute (5) Generalized weakness Current Visit: Yes Status: Acute (6) Hypertension Current Visit: Yes Status: Acute (7) Hypothyroidism Current Visit: Yes Status: Acute - Plan Physical exam GEN: Alert, oriented, NAD HEENT: Normal conjunctiva, sclera anicteric, right IJ in place CV: Regular rate and rhythm, 1+ edema lower extremities ALIN Pulm: Clear to auscultation bilaterally, no rhonchi or rales. ABD: Soft, nontender, nondistended MSK: No joint tenderness Integumentary: No rashes Neuro: Normal speech, normal affect Vitals reviewed Diagnosis Hypovolemic shock Hyponatremia Acute kidney injury Hypotension hyponatremia and KYRA likely secondary to dehydration and antidiuretic use. KYRA resolved. Hyponatremia almost resolved. Status post desmopressin. Diuretics-HCTZ and spironolactone are on hold Off Levophed drip Blood pressure seems to fluctuate. Midodrine as needed. Nephrology is following Normal serum osmolality. Continue to monitor BMP. Falls/generalized weakness Secondary to dehydration. Treat with IV normal saline as above. PT Patient being evaluated for inpatient rehab. Hypothyroidism May be contributing to the hyponatremia Subclinincal hypothyroidism-Fu with PCP Hypertension Fluctuating blood pressure. Home antihypertensives on hold. VTE: Lovenox Code: Full Disposition: Acute rehab
[2023-10-24 04:19] LABS: Hematocrit 28.3 % (36.0-45.0); Hemoglobin 9.6 g/dL (12.0-15.0); MCH 30.3 pg (27.0-35.0); MCV 89.2 fL (80-100); MPV 7.9 fL (7.6-11.3); Platelets 204 thou/uL (152-406); RBC Red Blood Cell Count 3.18 M/uL (3.86-4.86); Red Cell Distribution Width 14.8 % (12.1-15.2)
[2023-10-24 04:28] LABS: Magnesium 1.7 mg/dL (1.6-2.4); Phosphorus 2.1 mg/dL (2.5-4.9)
[2023-10-24] MEDS: LEVOTHYROXINE SOD 0.1 MG TAB PO SCH (05:16)
[2023-10-24] MEDS: MAGNESIUM SULFATE 1 gm IVPB 1 GM/100 ML BAG IV ONE (05:57)
[2023-10-24] MEDS ORDERED: POTASS/SODIUM PHOSPHATE 1 PKT POWD.PACK PO SCH (06:00)
[2023-10-24] MEDS: COSYNTROPIN 0.25 MG VIAL IV ONE ×2 (07:00→07:52)
[2023-10-24 09:30] LABS: Anion Gap 9.6 mEq/L (5.0-15.0); Potassium 4.6 mEq/L (3.5-5.1)
[2023-10-24] MEDS: POTASS/SODIUM PHOSPHATE 1 PKT POWD.PACK PO SCH (09:45)
--- NOTE | 2023-10-24 13:20 | PN ---
Date of Progress Note: 10/24/2023 Subjective: The patient was admitted to the hospital for acute kidney injury and hyponatremia with hypovolemic shock. The patient after hydration kidney function has improved. Hyponatremia has improved. Physical Examination: Vital Signs: Blood pressure 107/64, pulse of 74, afebrile. Chest: Clear to auscultation. Heart: S1, S2, regular. Abdomen: Soft, nontender. Extremities: Trace edema. Neurologic: Alert. No focality. Laboratory Data: Hemoglobin 9.6. Sodium 137, potassium 4.6, bicarb 26, BUN 22, creatinine 0.7. Calcium 8.7, phosphorus 2.1, magnesium 1.7. Current Medications: The patient on include: 1. Tylenol. 2. Venlafaxine. 3. Zofran. 4. Levothyroxine. 5. IV fluid at 100 per hour. 6. Magnesium oxide. Assessment And Plan: 1. Acute kidney injury secondary to poor perfusion, ATN, secondary to shock, recovered, resolved. 2. Hyponatremia, secondary to depletion, responded very well to current treatment, sodium normalized. I am going to go ahead and discontinue IV fluid. 3. Hypomagnesemia, hypophosphatemia, hypokalemia. We will supplement. 4. Low cortisol level, questionable adrenal insufficiency. We will follow up workup. 5. Shock. Hypovolemic shock complicated with encephalopathy and acute kidney injury secondary to poor perfusion ATN, recovered, discontinue IV fluid and will monitor. Time spent examining the patient [id number] reviewing Lab and radiology placing orders discussing the case with the patient and steam and power supervisor including hospitalist and nursing staff more than 35 minutes BIGG Voice ID: [id number] Report ID: [id number] CHERELLE
[2023-10-24] MEDS: POTASSIUM PHOS IN 0.9 % NACL 15 MMOL/250 ML BAG IV ONE (13:57)
--- NOTE | 2023-10-24 15:53 | P.PN ---
Subjective Date of Service: 10/24/23 Chief Complaint: Fall, generalized weakness Patient denies any complaint today. She is doing much better today. She was able to ambulate 120 feet with a rolling walker during therapy, She is tolerating diet. Physical Examination - Vital Signs Temperature: 97.7 F Blood Pressure: 113/75 Pulse: 54 Respirations: 16 Pulse Ox (%): 97 Assessment And Plan - Current Problems (Diagnosis) (1) Hypovolemic shock Current Visit: Yes Status: Acute (2) Hyponatremia Current Visit: Yes Status: Acute (3) KYRA (acute kidney injury) Current Visit: Yes Status: Acute (4) Falls Current Visit: Yes Status: Acute (5) Generalized weakness Current Visit: Yes Status: Acute (6) Hypertension Current Visit: Yes Status: Acute (7) Hypothyroidism Current Visit: Yes Status: Acute - Plan Physical exam GEN: Alert, oriented, NAD HEENT: Normal conjunctiva, sclera anicteric, right IJ in place CV: Regular rate and rhythm, 1+ edema lower extremities ALIN Pulm: Clear to auscultation bilaterally, no rhonchi or rales. ABD: Soft, nontender, nondistended MSK: No joint tenderness Integumentary: No rashes Neuro: Normal speech, normal affect Vitals reviewed Diagnosis Hypovolemic shock Hyponatremia Acute kidney injury Hypotension hyponatremia and KYRA likely secondary to dehydration and antidiuretic use. KYRA resolved. Hyponatremia resolved. Status post desmopressin. Later placed on urea. Diuretics-HCTZ and spironolactone are on hold Status post Levophed drip Blood pressure seems to fluctuate but appears to be stable today. Midodrine as needed. Nephrology is following Continue to monitor BMP. Falls/generalized weakness Secondary to dehydration. Dehydration treated. PT Patient would like to go home with home health regarding inpatient rehab. Anticipating discharge in a.m. Hypothyroidism May be contributing to the hyponatremia Subclinincal hypothyroidism-Fu with PCP Hypertension Fluctuating blood pressure. Home antihypertensives on hold. VTE: Lovenox Code: Full Disposition: Home with home health.
[2023-10-25 04:44] LABS: Hematocrit 27.1 % (36.0-45.0); Hemoglobin 9.2 g/dL (12.0-15.0); MCH 30.2 pg (27.0-35.0); MCV 88.8 fL (80-100); MPV 7.4 fL (7.6-11.3); Platelets 201 thou/uL (152-406); RBC Red Blood Cell Count 3.05 M/uL (3.86-4.86); Red Cell Distribution Width 14.7 % (12.1-15.2)
[2023-10-25 05:11] LABS: Magnesium 1.7 mg/dL (1.6-2.4); Phosphorus 2.6 mg/dL (2.5-4.9)
[2023-10-25] MEDS: POTASS/SODIUM PHOSPHATE 1 PKT POWD.PACK PO SCH (08:00)
[2023-10-25] MEDS: THIAMINE HCL 100 MG TABLET PO SCH (08:31)
[2023-10-25 09:10] VITALS: O2SAT 96
[2023-10-25 12:25] VITALS: BP 110/90; TEMP 97.7
--- NOTE | 2023-10-25 14:15 | P.DS ---
Admission Date: 10/20/23 Discharge Date: 10/25/23 Disposition: DC HOME/HOME HEALTH CARE Discharge Condition: FAIR Reason for Admission: Fall, generalized weakness - Problems (1) Hypovolemic shock Current Visit: Yes Status: Acute (2) Hyponatremia Current Visit: Yes Status: Acute (3) KYRA (acute kidney injury) Current Visit: Yes Status: Acute (4) Falls Current Visit: Yes Status: Acute (5) Generalized weakness Current Visit: Yes Status: Acute (6) Hypertension Current Visit: Yes Status: Acute (7) Hypothyroidism Current Visit: Yes Status: Acute Brief History of Present Illness: 68-year-old man with a history of hypertension, depression hypothyroidism was brought to the emergency department due to fall. Patient reported dizziness followed by a fall. She reports 2-month history of fatigue and weakness. She denied any nausea or vomiting or diarrhea. She denied any fever. She states that she has been finishing her meals. She denied any polyuria. Notes that she has a history of bladder prolapse. Workup done in the emergency department is notable for hyponatremia with sodium of 118, KYRA with creatinine up to 2.3 and elevated troponin. Patient is on hydrochlorothiazide and Aldactone. She denied Lasix use. She was hypotensive in the ED and received a liter of IV normal saline bolus. ED provider placed a central line chest x-ray reviewed and shows no acute disease. Urine analysis is pending. The patient is hospitalized for further management. Hospital Course: Patient admitted to the medical floor and the following medical problems addressed: Hypovolemic shock Hyponatremia Acute kidney injury Hypotension, hyponatremia and KYRA likely secondary to dehydration and antidiuretic use. KYRA resolved with IV hydration. Hyponatremia resolved after treatment with normal saline, desmopressin and urea, Diuretics-HCTZ and spironolactone discontinued Status post Levophed drip Blood pressure seems to fluctuate but appears to be stable today. Nephrology assisted with management. Patient will follow-up with nephrology Dr. Marie as outpatient Falls/generalized weakness Secondary to dehydration. Dehydration treated. PT Patient would like to go home with home health regarding inpatient rehab. Hypothyroidism May be contributing to the hyponatremia Subclinincal hypothyroidism-Fu with PCP Hypertension Fluctuating blood pressure. Home antihypertensives on hold. Patient's blood pressure has been stable. Overall she is clinically stable for discharge. Vital Signs/Physical Exam: Temp Pulse Resp BP Pulse Ox 97.7 F 93 H 16 110/90 99 10/25/23 12:00 10/25/23 12:00 10/25/23 12:00 10/25/23 12:00 10/25/23 12:00 General: Alert, In no apparent distress, Oriented x3, Obese HEENT: Mucous membr. moist/pink Neck: Supple, JVD not distended Respiratory: Clear to auscultation bilaterally, Normal air movement Cardiovascular: No edema, Regular rate/rhythm, Normal S1 S2 Gastrointestinal: Normal bowel sounds, Soft and benign, Non-distended, No tenderness Musculoskeletal: No swelling Integumentary: No rashes, No cyanosis Neurological: Normal strength at 5/5 x4 extr Laboratory Data at Discharge: WBC 5.70 thou/uL (4.3-10.9) 10/25/23 04:32 Hgb 9.2 g/dL (12.0-15.0) L 10/25/23 04:32 Hct 27.1 % (36.0-45.0) L 10/25/23 04:32 Plt Count 201 thou/uL (152-406) 10/25/23 04:32 Sodium 135 mEq/L (136-145) L 10/25/23 04:32 Potassium 5.0 mEq/L (3.5-5.1) 10/25/23 04:32 BUN 17 mg/dL (7-18) 10/25/23 04:32 Creatinine 0.89 mg/dL (0.55-1.02) 10/25/23 04:32 Glucose 89 mg/dL (74-106) 10/25/23 04:32 Uric Acid Cancelled 10/23/23 07:00 Phosphorus 2.6 mg/dL (2.5-4.9) 10/25/23 04:32 Magnesium 1.7 mg/dL (1.6-2.4) 10/25/23 04:32 Triglycerides 108 mg/dL (<150) 10/21/23 04:45 Cholesterol 177 mg/dL (<200) 10/21/23 04:45 HDL Cholesterol 58 mg/dL (40-60) 10/21/23 04:45 Cholesterol/HDL Ratio 3.05 10/21/23 04:45 Home Medications: Levothyroxine [Synthroid*] 75 mcg PO DAILY 10/20/23 Venlafaxine HCl *Xr* [Effexor XR] 75 mg PO DAILY 10/20/23 Levocetirizine Dihydrochloride [Xyzal] 5 mg PO DAILY 10/22/23 Thiamine HCl [Vitamin B-1*] 100 mg PO DAILY #30 tab 10/25/23 Urea [Ure-Na] 15 gm PO DAILY #14 packet 10/25/23 New Medications: Urea [Ure-Na] 15 gm PO DAILY #14 packet Thiamine HCl [Vitamin B-1*] 100 mg PO DAILY #30 tab Physician Discharge Instructions: [facility] P:[phone] F:[phone] Followup: Miriam Marie MD [ACTIVE - CAN ADMIT] - (Within 2 weeks) David Dillard MD [Primary Care Provider] - Time spent managing pt's care (in minutes): 38
--- NOTE | 2023-10-25 14:46 | P.PN ---
Subjective Date of Service: 10/25/23 Chief Complaint: Fall, generalized weakness Subjective: No new changes Physical Examination - Vital Signs Temperature: 97.7 F Blood Pressure: 110/90 Pulse: 93 Respirations: 16 Pulse Ox (%): 99 - Physical Exam General: Other (Chronically ill-appearing) HEENT: Atraumatic, Normocephalic Neck: Supple Respiratory: Other (symmetric chest expansion) Cardiovascular: No rubs, No murmurs Gastrointestinal: Soft and benign Musculoskeletal: No clubbing Integumentary: No warmth Neurological: Normal tone Urinary: Other (No bladder distention) External genitalia: Deferred Rectal: Deferred Assessment And Plan - Plan 1. Acute kidney injury secondary to poor perfusion, ATN, secondary to shock, resolved. Seney po fluid intake at least 1.5-2L/day. 2. Hyponatremia. Serum Na improved to 135. Encourage by mouth solid food intake 3 times a day, at least half a plate per meal. Seney by mouth fluid intake. 3. Hypomagnesemia, hypophosphatemia, hypokalemia. Replace prn. 4. Hypovolemic shock. Resolved. Monitor BP.
== END 2023-10-25 15:43 | disposition home health service (06) | DRG 682 ==
LOC: ER 01:10 → ERHOLD 05:31 → 3RD-ICU 14:55 → 2ND 10-23 14:15
PROVIDERS: ADMIT Internal Medicine; ATTEND Internal Medicine
PROC: 0T9B70Z Drainage of Bladder with Drainage Device, Via Natural or Artificial Opening (ICD-10-PCS; principal; 2023-10-20)
DX: N17.0 Acute kidney failure with tubular necrosis (principal); G93.41 Metabolic encephalopathy; R57.1 Hypovolemic shock; E87.1 Hypo-osmolality and hyponatremia; E86.0 Dehydration; I10 Essential (primary) hypertension; E03.8 Other specified hypothyroidism; E87.6 Hypokalemia; E83.42 Hypomagnesemia; E83.39 Other disorders of phosphorus metabolism; L89.151 Pressure ulcer of sacral region, stage 1; K21.9 Gastro-esophageal reflux disease without esophagitis; R79.89 Other specified abnormal findings of blood chemistry; Z91.09 Other allergy status, other than to drugs and biological substances; Z90.49 Acquired absence of other specified parts of digestive tract; Z98.84 Bariatric surgery status; Z90.710 Acquired absence of both cervix and uterus; Z28.310 Unvaccinated for COVID-19; Z91.048 Other nonmedicinal substance allergy status; Z87.891 Personal history of nicotine dependence; Z79.899 Other long term (current) drug therapy; Z79.890 Hormone replacement therapy; W01.0XXA Fall on same level from slipping, tripping and stumbling without subsequent striking against object, initial encounter; Y92.009 Unspecified place in unspecified non-institutional (private) residence as the place of occurrence of the external cause; Y93.89 Activity, other specified; Y99.9 Unspecified external cause status
CPT/HCPCS: 36415; 71045; 76770; 80048; 80061; 81001; 82024; 82533; 82570; 83735; 83930; 83935; 84100; 84132; 84156; 84300; 84439; 84443; 84484; 84550; 85025; 85027; 93005; 93306; 94760; 96374; 97110; 97116; 97161; 97165; 97530; 99285; J0834; J1644; J2597; J3411; J3475; J3480; J7030; J7050; J7060; J7120

== ENCOUNTER → 2023-11-14 | Emergency (ER) | payer OTHER ==
--- OUTSIDE RECORDS SUMMARY | 2023-11-14 09:33 | XMS REPORT | Clinical Summary ---
Author Name Unknown Organization [facility] Address [address] [place] [address] Care Team Providers Care Sr. Unix System Administrator Name Role Phone Hemal Berg MD Primary Care Provider Kadi Esposito MD Unavailable [phone] Liborio Pereira Unavailable [phone] Lorenzo Acosta MD Unavailable [phone] Ignacio Salvador MA, James H Unavailable Unavailabl Tom Hernandez MD Unavailable Hemal Berg MD Unavailable Dominick Akbar Unavailable [phone] Zhang Chavez MD Unavailable [phone] James Fernandez MD Unavailable Vida Christensen [...] Right conductive hearing loss 07/11/2016 Overview: 06/02 [facility] regulatory import Squamous cell carcinoma [...] Vertical Gastric Banding PANNICULECTOMY 09/02/2002 - 09/01/2003 [place] [facility]PR 1ST INGUN HRNA AGE 5 YRS/> [...] Maintenance Due Date Last Done Comments COVID-19 Vaccine (#1) 02/18/1956 Influenza Vaccine 05/03/2023 Medical Devices Implanted Type Area Biochemical Engineer Device Identifier Shelf Expiration Date Model / Serial / Lot Mesh Marlex 2" X 12" - [id number] Implanted:Qty : 1 on 10/29/2016 by James Fernandez MD at [facility] Implant Right: Inguinal [employer] 04/29/2020 [id number] / [id number] / [id number] Advance Directives Latest Code Status on File Code Status Date Activated Date Inactivated Comments Full Code 10/29/2016 9:36 AM 10/29/2016 3:34 PM Care Teams Sr. Unix System Administrator Relationship Specialty Start Date End Date Hemal Berg MD [address] [place] [id number] PCP - General 11/02/15 Kadi Esposito MD [address] [place] [address] [phone] PCP - External Referring 01/06/15 Liborio Pereira AuD [address] [place] [address] [address] [place] [address] Lode Miner 11/09/15 Lorenzo Acosta MD [address] [place] [address]. [facility] [address] [place] [address] Physician 11/09/15 Lexa Pierre Jr., RICKI [employer]ode Miner 11/09/15 Tom Melendez MD [address] [place] [id number] Physician 11/09/15 Hemal Berg MD [address] [place] [address] [id number] Physician 11/09/15 Dominick Akbar PA [address] [place] [address] [phone] Physician Machine Printer Hose 11/09/15 Zhang Chavez MD [address] [place] [address] [phone] Physician 11/09/15 James Fernandez MD [address] [place] [address] [phone] Consulting Physician Surgical Oncology 10/09/16 Vida Christensen MD [address] [place] [address] [phone] Consulting Physician Breast Medical Oncology 10/04/17
[2023-11-14 10:33] LABS: Absolute Basophils 0.1 K/uL (0-0.5); Absolute Eosinophils 0.2 K/uL (0-0.5); Absolute Lymphocytes (CBC) 1.3 K/uL (0.7-4.9); Absolute Monocytes 0.7 K/uL (0.1-1.3); Absolute Neutrophil 3.5 K/uL (1.8-8.0); Eosinophils % 4.2 % (0-4.4); Hematocrit 27.5 % (36.0-45.0); Hemoglobin 9.3 g/dL (12.0-15.0); MCH 30.2 pg (27.0-35.0); MCHC 33.9 g/dL (32.0-36.0); MCV 89.1 fL (80-100); MPV 6.9 fL (7.6-11.3); Monocytes % 11.9 % (3.3-12.3); Neutrophils % 60.9 % (41.7-73.7); Platelets 432 thou/uL (152-406); RBC Red Blood Cell Count 3.08 M/uL (3.86-4.86); Red Cell Distribution Width 15.7 % (12.1-15.2)
[2023-11-14 11:01] LABS: Albumin 2.5 g/dL (3.4-5.0); Albumin/Globulin Ratio 0.7 (1.1-1.8); Anion Gap 9.8 mEq/L (5.0-15.0); Bilirubin Direct 1.2 mg/dL (0-0.2); Bilirubin Indirect, Calculated 0.7 mg/dL (0.2-0.8); Bilirubin Total 1.9 mg/dL (0.2-1.0); Globulin 3.6 g/dL (2.3-3.5); Potassium 3.8 mEq/L (3.5-5.1); Protein, Total 6.1 g/dL (6.4-8.2)
--- NOTE | 2023-11-14 11:29 | RAD REPORT ---
EXAM DESCRIPTION: CT - Abdomen Pelvis W Contrast - 11/14/2023 11:03 am CLINICAL HISTORY: hyperbilirubinemia COMPARISON: Abdomen Pelvis Wo Contrast dated 11/02/2023 TECHNIQUE: Thin cut axial CT imaging of the abdomen and pelvis was performed following intravenous a dministration of iodinated contrast. Multiplanar reformats were generated and reviewed. All CT scans are performed using dose optimization technique as appropriate and may include automated exposure control or mA/KV adjustment according to patient size. FINDINGS: No suspicious findings in the lung bases. The liver demonstrates a wedge-shaped peripheral right lobe region of hypoattenuation, measuring 3.5 x 1.5 cm, nonspecific, and could relate to transient enhancement differences. Adrenal glands, spleen, and pancreas show no suspicious findings. 1 cm focus of hypoattenuation in the central aspect of the spleen is nonspecific and may represent a small cyst or hemangioma. Slightly less pronounced intrahepatic biliary ductal dilation compared to the prior. Pronounced commo n bile duct widening, measuring up to 1.8 cm in caliber, with numerous common duct stones. Gallbladde r is not visualized and is probably surgically removed. Symmetric renal function is seen with lobulated renal contour bilaterally. No hydronephrosis or suspi cious renal mass. No dilated bowel loops or bowel wall thickening. No free air, free fluid or inflammatory stranding. S equelae of Driss-en-Y gastric bypass, and ventral hernia mesh repair again seen. No hernia, mass or bu lky lymphadenopathy. The urinary bladder is without significant finding. No suspicious bony findings. Stable superior endplate compression deformity at L3 IMPRESSION: Re- demonstration of common bile duct dilation with choledocholithiasis. Intrahepatic bi liary ductal dilation again seen, although appears to be of milder degree. Other stable findings as above. No other acute process demonstrated.
--- NOTE | 2023-11-14 12:06 | EDPHYS ---
Physician Documentation [facility] Name: Yvonne Szymanski Age: 68 yrs Sex: Female : 1955 Arrival Date: 11/14/2023 Time: 09:31 Bed 16 Private MD: David Dillard E ED Physician Hossein Cordero HPI: 11/13 14:00 This 68 yrs old Female presents to ER via Wheelchair with complaints of Jaundice. rt 14:00 Patient presents to the ED with reported jaundice. Patient went to the primary care's rt office where he was noted to have elevated transaminases, bilirubin. Of note, patient was recently transferred to [facility] for choledocholithiasis, was complex procedure requiring stenting with follow 1 removal of gallstones scheduled for next week. Patient states that she has no pain right now, currently feels well. Denies any acute complaints. Symptoms are moderate in severity, no other aggravating elevating factors.. Historical: - Allergies: 09:46 Adhesives; ll1 09:46 metal; ll1 - PMHx: 09:46 acid reflux; Hypothyroidism; PROLAPSED RECTUM; ll1 - PSHx: 09:46 bariactric surgery; Cataract and Lasik SX; Cholecystectomy; hernia repair; R. ACL ll1 Repair; R. Ear Canal CA; Total abdominal hysterectomy; - Immunization history:: Adult Immunizations up to date. - Social history:: Smoking status: Patient denies any tobacco usage or history of. - Family history:: not pertinent. ROS: 14:00 Constitutional: Negative for fever, chills, and weight loss, Cardiovascular: Negative rt for chest pain, palpitations, and edema, Respiratory: Negative for shortness of breath, cough, wheezing, and pleuritic chest pain, Abdomen/GI: Negative for abdominal pain, nausea, vomiting, diarrhea, and constipation, Neuro: Negative for headache, weakness, numbness, tingling, and seizure, 14:00 Skin: Positive for jaundice, Negative for rash, Exam: 14:00 Constitutional: This is a well developed, well nourished patient who is awake, alert, rt and in no acute distress. Head/Face: Normocephalic, atraumatic. Chest/axilla: Normal chest wall appearance and motion. Nontender with no deformity. No lesions are appreciated. Cardiovascular: Regular rate and rhythm with a normal S1 and S2. No gallops, murmurs, or rubs. Normal PMI, no JVD. No pulse deficits. Respiratory: Lungs have equal breath sounds bilaterally, clear to auscultation and percussion. No rales, rhonchi or wheezes noted. No increased work of breathing, no retractions or nasal flaring. Abdomen/GI: Soft, non-tender, with normal bowel sounds. No distension or tympany. No guarding or rebound. No evidence of tenderness throughout. MS/ Extremity: Pulses equal, no cyanosis. Neurovascular intact. Full, normal range of motion. Neuro: Awake and alert, GCS 15, oriented to person, place, time, and situation. Cranial nerves II-XII grossly intact. Motor strength 5/5 in all extremities. Sensory grossly intact. Cerebellar exam normal. Normal gait. Vital Signs: 09:47 BP 146 / 77; Pulse 84; Resp 18; Temp 97.1; Pulse Ox 100% ; Weight 117.48 kg; Height 5 ll1 ft. 8 in. ; Pain 0/10; 11:21 BP 139 / 74; Pulse 73; Resp 17; Pulse Ox 97% on R/A; nj1 12:17 BP 138 / 75; Pulse 80; Resp 17; Pulse Ox 98% on R/A; nj1 09:47 Body Mass Index 39.38 (117.48 kg, 172.72 cm) ll1 09:47 Pain Scale: Adult ll1 MDM: 09:53 Patient medically screened. rt 14:00 Differential Diagnosis Jaundice, hyperbilirubinemia, retained stone. Data reviewed: rt vital signs, nurses notes, lab test result(s), radiologic studies. Consideration of Admission/Observation Escalation of care including admission/observation considered. Discussed findings with patient, appeared be stable, she states that her symptoms have significantly proved compared to before. Patient is strongly desirous of discharge. Bilirubin is not significantly elevated from before. She already has scheduled ERCP for next week. Strict return precautions were discussed.. Independent interpretation of the following test(s) in the Emergency Department CT Scan: My interpretation is No bowel obstruction send interpretation of CT scan images. Care significantly affected by the following chronic conditions: Hyperbilirubinemia. Counseling: I had a detailed discussion with the patient and/or guardian regarding the historical points, exam findings, and any diagnostic results supporting the discharge/admit diagnosis, lab results, radiology results, the need for outpatient follow up, to return to the emergency department if symptoms worsen or persist or if there are any questions or concerns that arise at home. 11/13 10:01 Order name: BMP; Complete Time: :14 rt 11/13 10:01 Order name: LFT's; Complete Time: : rt 11/13 10:01 Order name: CBC with Diff; Complete Time: rt 11/13 10:01 Order name: Lipase; Complete Time: rt 11/13 10:01 Order name: CT Abd/Pelvis - IV Contrast Only; Complete Time: 11:47 rt Administered Medications: No medications were administered Disposition Summary: 11/14/23 12:06 Discharge Ordered Notes: Location: Home rt Condition: Stable rt Diagnosis - Hyperbilirubinemia rt Followup: rt - With: Private Physician - When: 2 - 3 days - Reason: Discharge Instructions: - Discharge Summary Sheet rt - Bilirubin Test rt Forms: - Medication Reconciliation Form rt - Thank You Letter rt - Antibiotic Education rt - Prescription Opioid Use rt - Patient Portal Instructions rt - Leadership Thank You Letter rt Signatures: Dispatcher [employer] Nancy Nassar, EMMETT RN ll1 Hossein Cordero MD MD rt
--- NOTE | 2023-11-14 12:06 | ER ---
Nurse's Notes [facility] Name: Yvonne Szymanski Age: 68 yrs Sex: Female : 1955 Arrival Date: 11/14/2023 Time: 09:31 Bed 16 Private MD: David Dillard E Diagnosis: Hyperbilirubinemia Presentation: 11/13 09:47 Chief complaint: Patient states: Very weak and jaundiced still since her last admission ll1 here. Coronavirus screen: Client denies travel out of the [place] in the last 14 days. At this time, the client does not indicate any symptoms associated with coronavirus-19. Ebola Screen: Patient denies travel to an Ebola-affected area in the 21 days before illness onset. Initial Sepsis Screen: Does the patient meet any 2 criteria? No. Patient's initial sepsis screen is negative. Does the patient have a suspected source of infection? No. Patient's initial sepsis screen is negative. Risk Assessment: Do you want to hurt yourself or someone else? Patient reports no desire to harm self or others. Onset of symptoms. 09:47 Method Of Arrival: Wheelchair [facility] 09:47 Acuity: STEPHAN 3 [facility] 09:48 Onset of symptoms was November 01, 2023. [facility] Triage Assessment: 09:48 General: Appears uncomfortable, ill, Behavior is calm, cooperative, appropriate for 1 age. Pain: Denies pain. Neuro: Reports weakness. Derm: Skin is jaundiced, Reports. Historical: - Allergies: 09:46 Adhesives; ll1 09:46 metal; ll1 - PMHx: 09:46 acid reflux; Hypothyroidism; PROLAPSED RECTUM; ll1 - PSHx: 09:46 bariactric surgery; Cataract and Lasik SX; Cholecystectomy; hernia repair; R. ACL ll1 Repair; R. Ear Canal CA; Total abdominal hysterectomy; - Immunization history:: Adult Immunizations up to date. - Social history:: Smoking status: Patient denies any tobacco usage or history of. - Family history:: not pertinent. Screenin:14 [facility] ED Fall Risk Assessment (Adult) History of falling in the last 3 months, nj1 including since admission No falls in past 3 months (0 pts) Confusion or Disorientation No (0 pts) Intoxicated or Sedated No (0 pts) Impaired Gait No (0 pts) Mobility Assist Device Used Yes (1 pt) Altered Elimination No (0 pt) Score/Fall Risk Level 0 - 2 = Low Risk Oriented to surroundings, Maintained a safe environment, Hourly rounding (assess needs \T\ fall precautionary measures) done. Abuse screen: Denies threats or abuse. Denies injuries from another. Nutritional screening: No deficits noted. Tuberculosis screening: No symptoms or risk factors identified. Assessment: 10:20 General: Appears in no apparent distress. comfortable, Behavior is calm, cooperative, nj1 appropriate for age. Pain: Denies pain. Neuro: Level of Consciousness is awake, alert, obeys commands, Oriented to person, place, situation. 10:20 Cardiovascular: Patient's skin is warm and dry. nj1 10:20 Respiratory: Airway is patent Respiratory effort is even, unlabored. EENT: nj1 Sclera/Cornea jaundiced. Derm: Skin is jaundiced. 11:21 Reassessment: Patient appears in no apparent distress at this time. Patient and/or nj1 family updated on plan of care and expected duration. Pain level reassessed. Patient is alert, oriented x 3, equal unlabored respirations, skin warm/dry/pink. Patient denies pain at this time. 12:18 Reassessment: Patient appears in no apparent distress at this time. Patient is alert, nj1 oriented x 3, equal unlabored respirations, skin warm/dry/pink. Vital Signs: 09:47 BP 146 / 77; Pulse 84; Resp 18; Temp 97.1; Pulse Ox 100% ; Weight 117.48 kg; Height 5 ll1 ft. 8 in. ; Pain 0/10; 11:21 BP 139 / 74; Pulse 73; Resp 17; Pulse Ox 97% on R/A; nj1 12:17 BP 138 / 75; Pulse 80; Resp 17; Pulse Ox 98% on R/A; nj1 09:47 Body Mass Index 39.38 (117.48 kg, 172.72 cm) ll1 09:47 Pain Scale: Adult ll1 ED Course: 09:35 Patient arrived in ED. mr 09:35 Hossein Cordero MD is Attending Physician. rt 09:35 David Dillard MD is Private Physician. mr 09:46 Arm band placed on. ll1 09:48 Triage completed. ll1 10:12 Anabel Millan, RN is Primary Nurse. nj1 10:20 Patient has correct armband on for positive identification. Bed in low position. Call nj1 light in reach. Adult w/ patient. Provided Education on: call light, fall precautions. 10:25 Inserted saline lock: 22 gauge in right antecubital area, using aseptic technique. nj1 Blood collected. 10:51 Note: 24g diffusics to rt wrist by in ct. Patient moved to CT via stretcher. ls3 11:05 CT Abd/Pelvis - IV Contrast Only In Process Unspecified. EDMS 12:18 No provider procedures requiring assistance completed. IV discontinued, intact, nj1 bleeding controlled, No redness/swelling at site. Pressure dressing applied. Administered Medications: No medications were administered Medication: 12:18 VIS not applicable for this client. nj1 Outcome: 12:06 Discharge ordered by . rt 12:19 Discharged to home ambulatory, with significant other, nj1 12:19 Condition: stable 12:19 Discharge instructions given to patient, Instructed on discharge instructions, follow up and referral plans. Demonstrated understanding of instructions, follow-up care, 12:19 Patient left the ED. nj1 Signatures: Dispatcher [employer] EDUT Juan Manuel Yvonne, Reg Reg Shane Hester ls3 Nancy Suarez, RN RN ll1 Hossein Cordero MD MD rt Anabel Millan, RN RN nj1
[2023-11-14 12:39] VITALS: BP 166/105; TEMP 97.8; O2SAT 99
== END ==
LOC: ER 09:31
DX: E80.6 Other disorders of bilirubin metabolism (principal); E03.9 Hypothyroidism, unspecified; Z91.048 Other nonmedicinal substance allergy status
CPT/HCPCS: 85025; 80048; 36415; 80076; 83690; 74177; 99284; Q9967